=== PATIENT | female | born 1960 | race African-American/Black ===

== ENCOUNTER 2016-09-23 20:35 | Emergency (ER) | payer BC ==
[2016-09-23 20:40] VITALS: BP 160/69; BMI 39.0
[2016-09-23] MEDS ORDERED: NS 1000 ML 1,000 ML ONE (21:03)
--- NOTE | 2016-09-23 21:03 | DR.GENAD ---
HPI - PCP Primary Care Physician: Master - Complaint/Symptoms Chief Complaint Doctors Comments: Patient states that she has had three episodes of diarrhea and vomiting since 10AM. Chief Complaint:: "Ever since about 10am I have been vomiting and having loose stools. I can't keep anything down." - Source History Provided: Patient - Mode of Arrival Mode of Arrival: Ambulatory - Timing Onset of Chief Complaint: 09/23/16 PMH - PMH Past Medical History: Yes Past Medical History: Arthritis, Diabetes, GERD, Hypertension, PUD Past Surgical History: Yes Surgical History: , Cholecystectomy - Family History History of Family Medical Conditions: Yes Family Medical History: Diabetes Mellitus, [place], Coronary Artery Disease, Hypertension - Social History Does patient currently use any type of tobacco product: No Have you used tobacco products in the last 12 months: No Type of Tobacco Use: None Does any household member use tobacco: No Alcohol Use: None Do you use any recreational Drugs:: No Lives With: Family Lives Where: Home - infectious screening In the last 2 months have you had wt loss of >10#?: NO Have you had fever, night sweats or hemotysis?: No Have you traveled outside the country in the last 6 months?: No Isolation: Standard ROS - Review of Systems Eyes: No Symptoms Reported ENTM: No Symptoms Reported Respiratoy: No Symptoms Reported Cardiovascular: No Symptoms Reported Gastrointestinal/Abdominal: No Symptoms Reported Genitourinary: No Symptoms Reported Neurological: No Symptoms Reported Musculoskeletal: No Symptoms Reported Integumentary: No Symptoms Reported Hematologic/Lymphatic: No Symptoms Reported Endocrine: No Symptoms Reported Psychiatric: No Symptoms Reported All Other Systems: Reviewed and Negative PE - Vital Signs Vitals: Temperature 98.2 F Pulse Rate 82 Respiratory Rate 18 Blood Pressure [Right Arm] 127/52 Blood Pressure [Left Arm] 104/56 Blood Pressure 160/69 O2 Sat by Pulse Oximetry 98 - General General Appearance: Alert, In No Apparent Distress - Head Head Exam: Normal Inspection, Atraumatic - Eyes Eye exam: Normal Appearance, PERRL, EOMI - ENT ENT Exam: Normal Exam TM/Canal Exam: Bilateral Normal Nose Exam: Normal Nose Exam Mouth Exam: Normal Inspection Throat Exam: Normal Inspection - Neck Neck Exam: Normal Inspection - Chest Chest Inspection: Normal Inspection - Respiratory Respiratory Exam: Bilateral Clear to Auscultation - Cardiovascular Cardiovascular Exam: Regular Rate, Normal Rhythm - Abdominal Exam Abdominal Exam: Normal Inspection, Normal Bowel Sounds Abdominal Tenderness: negative: RUQ, RLQ, LUQ, LLQ, Epigastrium, Suprapubic, Diffuse, Mild, Moderate, Severe, Other - Extremities Extremities Exam: Normal Inspection, Full ROM - Back Back Exam: Normal Inspection - Neurologic Neurological Exam: Alert, Oriented X3, CN II-XII Intact - Psychiatric Psychiatric Exam: Normal Affect, Normal Mood - Skin Skin Exam: Warm, Dry, Intact Course - Reevaluation 1st: Improved ROR - Labs Reviewed Laboratory Results Reviewed?: Yes (H pylori gastritis) Result Diagrams: 09/23/16 21:12 09/23/16 21:12 Laboratory: WBC 4.7 X10^3/uL (3.6-10.0) 09/23/16 21:12 RBC 4.29 X10^6/uL (3.5-5.4) 09/23/16 21:12 Hgb 12.9 g/dL (12.0-16.0) 09/23/16 21:12 Hct 38.1 % (36.0-47.0) 09/23/16 21:12 MCV 88.8 fL (80.0-100.0) 09/23/16 21:12 MCH 29.9 pg (27.0-34.0) 09/23/16 21:12 MCHC 33.7 g/dL (33.0-35.0) 09/23/16 21:12 RDW 13.7 % (11.6-16.5) 09/23/16 21:12 Plt Count 234 X10^3/uL (150.0-450.0) 09/23/16 21:12 MPV 8.7 fL (7.4-11.0) 09/23/16 21:12 Neut % 72.8 % (42.0-75.0) 09/23/16 21:12 Lymph % 22.1 % (21.0-51.0) 09/23/16 21:12 [place] % 3.8 % (0.0-13.0) 09/23/16 21:12 Eos % 0.3 % (0.9-2.9) L 09/23/16 21:12 Baso % 1.0 % (0.2-1.0) 09/23/16 21:12 Neut # 3.4 x10^3/uL (2.2-4.8) 09/23/16 21:12 Lymph # 1.0 X10^3/uL (1.3-2.9) L 09/23/16 21:12 [place] # 0.2 x10^3/uL (0.3-0.8) L 09/23/16 21:12 Eos # 0.0 x10^3/uL (0.0-0.2) 09/23/16 21:12 Baso # 0.0 X10^3/uL (0.0-0.1) 09/23/16 21:12 Absolute Nucleated RBC 0.0 /100WBC 09/23/16 21:12 Sodium 144 mmol/L (136-145) 09/23/16 21:12 Corrected Sodium 147 mmol/L (136-145) H 09/23/16 21:12 Potassium 3.6 mmol/L (3.5-5.1) 09/23/16 21:12 Chloride 103 mmol/L (98-107) 09/23/16 21:12 Carbon Dioxide 31.3 mmol/L (21-32) 09/23/16 21:12 BUN 19 mg/dL (7-18) H 09/23/16 21:12 Creatinine 0.78 mg/dL (0.55-1.02) 09/23/16 21:12 Est GFR (MDRD) Af Amer > 60 (>60) 09/23/16 21:12 Est GFR (MDRD) Non-Af > 60 (>60) 09/23/16 21:12 Glucose 218 mg/dL (65-99) H 09/23/16 21:12 Calcium 8.8 mg/dL (8.5-10.1) 09/23/16 21:12 H. pylori IgG Antibody Positive (NEGATIVE) A 09/23/16 21:12 - Diagnosis Discharge Problem: Helicobacter pylori gastritis - Discharge Plan Condition: Stable - Follow ups/Referrals Follow ups/Referrals: BON GARCIA [Primary Care Provider] - 3 days - Instructions
[2016-09-23] MEDS: NS 1000 ML 1,000 ML IV ONE (21:18)
[2016-09-23] MEDS: ZOFRAN INJ 4 MG VIAL IVP ONE (21:29)
[2016-09-23 22:03] LABS: BILIRUBIN,URINE NEGATIVE (NEGATIVE); BLOOD/HEMOGLOBIN,URINE NEGATIVE (NEGATIVE); GLUCOSE, URINE 4+ (NEGATIVE); KETONES,URINE NEGATIVE (NEGATIVE); LEUKOCYTE ESTERASE ,URINE 2+ (NEGATIVE); NITRITES,URINE NEGATIVE (NEGATIVE); PROTEIN,URINE NEGATIVE (NEGATIVE); UROBILINOGEN,URINE NORMAL (NORMAL)
[2016-09-23 22:09] LABS: BLOOD UREA NITROGEN 19 mg/dL (7-18); CALCIUM 8.8 mg/dL (8.5-10.1); CARBON DIOXIDE 31.3 mmol/L (21-32); CHLORIDE 103 mmol/L (98-107); COR NA(FOR HYPERGLY) 147 mmol/L (136-145); CREATININE 0.78 mg/dL (0.55-1.02); GLUCOSE 218 mg/dL (65-99); SODIUM 144 mmol/L (136-145); eGFR BLACK RACES > 60 (>60); eGFR NON BLACK RACES > 60 (>60)
[2016-09-23 22:14] LABS: EOSINOPHILS % (AUTO) 0.3 % (0.9-2.9); HEMATOCRIT 38.1 % (36.0-47.0); HEMOGLOBIN 12.9 g/dL (12.0-16.0); LYMPHOCYTES % (AUTO) 22.1 % (21.0-51.0); MEAN CORPUSCULAR HEMOGLOBIN 29.9 pg (27.0-34.0); MEAN CORPUSCULAR HGB CONC 33.7 g/dL (33.0-35.0); MEAN CORPUSCULAR VOLUME 88.8 fL (80.0-100.0); MEAN PLATELET VOLUME 8.7 fL (7.4-11.0); MONOCYTES # (AUTO) 0.2 x10^3/uL (0.3-0.8); MONOCYTES % (AUTO) 3.8 % (0.0-13.0); NEUTROPHILS # (AUTO) 3.4 x10^3/uL (2.2-4.8); NEUTROPHILS % (AUTO) 72.8 % (42.0-75.0); PLATELET COUNT 234 X10^3/uL (150.0-450.0); RED BLOOD COUNT 4.29 X10^6/uL (3.5-5.4); RED CELL DISTRIBUTION WIDTH 13.7 % (11.6-16.5); WHITE BLOOD COUNT 4.7 X10^3/uL (3.6-10.0)
[2016-09-23 22:29] LABS: APPEARANCE,URINE SLIGHTLY HAZY (CLEAR); BACTERIA,URINE NEGATIVE /HPF (NEGATIVE); COLOR,URINE YELLOW (YELLOW); RBC,URINE 0-3 /HPF (NEGATIVE); SQUAMOUS EPITHELIAL CELL,UR MODERATE /HPF (NEGATIVE); YEAST,URINE FEW /HPF (NEGATIVE)
== END 2016-09-23 22:33 | disposition home or self-care (01) ==
LOC: ER 20:35
DX: R11.10 Vomiting, unspecified (principal); B96.81 Helicobacter pylori [H. pylori] as the cause of diseases classified elsewhere
CPT/HCPCS: 36415; 36591; 80048; 81001; 85025; 86677; 96367; 96374; 99282; 99283; A4222

== ENCOUNTER 2016-09-24 07:56 | Observation (INO) | payer BC ==
[2016-09-24] MEDS ORDERED: PEPCID 20 MG IV PREMIX* 20 MG/50 ML BAG IV ONE ×2 (09:03→09:09)
--- NOTE | 2016-09-24 09:03 | DR.NAUSEAF ---
HPI - Time Seen Time seen: 08:55 - Primary Care Physician Primary Care Physician: CARLOS ALBERTO SALMONP - HPI Comment HPI Comment: SEEN AT THIS FACILITY AND TREATED. CAME BACK BECAUSE HER SYMTOMS GOT WORSE. SHE IS NOT ABLE TO KEEP DOWN HER MEDICATIONS OR FLUID. HISTORY DIVERTICULOSIS. - Complaints Chief Complaint Doctors Comments: ABDOMINAL PAIN, N/V/D TIMES SEVERAL HOURS. Chief Complaint:: PT SEEN IN ER LAST NIGHT AND DX WITH H.PYLORI ,, PT STATES " I GOT NAUSEATED AND DIZZY I THOUGHT I WAS GONNA PASS OUT ". Self Treatment fo Chief Complaint: EMS ADMINISTERED ZOFRAN 4 MG IV,,, - Reviewed Nurses Notes Reviewed: Yes - Source History Provided: Patient, EMS - Mode of Arrival Mode of Arrival: EMS - Timing Onset of Chief Complaint: 09/24/16 - Context Onset: Spontaneous Recent: None : No History of: Abdominal Operation, Diabetes. negative: Contact Exposure - Quality Quality: Bilious - Associated Signs and Symptoms Abdominal Pain Quality: Cramping Symptoms: Abdominal Pain, Diarrhea, Anorexia. denies: Fever PMH - PMH Past Medical History: Yes Past Medical History: Arthritis, Diabetes, GERD, Hypertension, PUD Past Surgical History: Yes Surgical History: , Cholecystectomy - Family History History of Family Medical Conditions: No Family Medical History: Diabetes Mellitus, [place], Coronary Artery Disease, Hypertension - Social History Does patient currently use any type of tobacco product: No Have you used tobacco products in the last 12 months: No Type of Tobacco Use: None Does any household member use tobacco: No Alcohol Use: None Do you use any recreational Drugs:: No Lives With: Alone Lives Where: Home - infectious screening In the last 2 months have you had wt loss of >10#?: NO Have you had fever, night sweats or hemotysis?: No Have you traveled outside the country in the last 6 months?: No Isolation: Standard ROS - Review of Systems Constitutional: No Symptoms Reported Eyes: No Symptoms Reported ENTM: No Symptoms Reported Respiratoy: No Symptoms Reported Cardiovascular: No Symptoms Reported Gastrointestinal/Abdominal: Abdominal Pain, Diarrhea, Nausea, Vomiting Genitourinary: No Symptoms Reported. negative: Dysuria, Frequency, Hematuria Neurological: Dizziness Musculoskeletal: No Symptoms Reported, Muscle Pain Integumentary: Dryness Hematologic/Lymphatic: No Symptoms Reported Endocrine: No Symptoms Reported All Other Systems: Reviewed and Negative PE - Vital Signs Vitals: Temperature 98.0 F Pulse Rate [Left Brachial] 71 Pulse Rate 79 Respiratory Rate 20 Blood Pressure [Right Arm] 121/62 Blood Pressure [Left Arm] 104/56 Blood Pressure 122/60 O2 Sat by Pulse Oximetry 94 - General Limitations: No Limitations General Appearance: Alert - Head Head Exam: Normal Inspection - Eyes Eye exam: Normal Appearance - ENT ENT Exam: Normal External Ear Exam - Neck Neck Exam: Trachea Midline - Chest Chest Inspection: Symmetric Chest Wall Rise - Respiratory Respiratory Exam: Normal Lung Sounds Bilat Respiratory Exam: Bilateral Clear to Auscultation - Cardiovascular Cardiovascular Exam: Regular Rate, Normal Rhythm, Normal Heart Sounds - Abdominal Exam Abdominal Exam: Normal Bowel Sounds, Soft, Tenderness Abdominal Tenderness: Diffuse, Moderate - Rectal Rectal Exam: Deferred - External Exam: Female: Deferred : Speculum Exam (Female): Deferred : Bimanual Exam (female): Deferred - Extremities Extremities Exam: Normal Inspection - Back Back Exam: Normal Inspection - Neurologic Neurological Exam: Alert, Oriented X3 - Psychiatric Psychiatric Exam: Normal Affect, Normal Mood - Skin Skin Exam: Dry MDM - Additional Information Obtained Additional Information Obtained From: Family - Differential Diagnosis Differential Diagnosis: Considerations may Include:: Bowel Obstruction, Gastritis, Gastroenteritis, Inflammatory BD, Pancreatitis, PUD, Urinary Tract Infection, Urolithiasis Course - Treatment Treatment: SEE ORDERS. - Consultation Consultation Comments: DISCUSS PATIENT WITH DR. BONILLA. HE WILL ADMIT PATIENT. - Education/Counseling Education/Counseling: Patient, Education Educated On: Treatment, Diagnosis, Needs for Follow Up ROR - Labs Reviewed Laboratory Results Reviewed?: Yes Result Diagrams: 09/25/16 03:55 09/25/16 03:55 Laboratory: WBC 4.4 X10^3/uL (3.6-10.0) 09/25/16 03:55 RBC 4.15 X10^6/uL (3.5-5.4) 09/25/16 03:55 Hgb 12.4 g/dL (12.0-16.0) 09/25/16 03:55 Hct 36.4 % (36.0-47.0) 09/25/16 03:55 MCV 87.9 fL (80.0-100.0) 09/25/16 03:55 MCH 29.9 pg (27.0-34.0) 09/25/16 03:55 MCHC 34.0 g/dL (33.0-35.0) 09/25/16 03:55 RDW 14.0 % (11.6-16.5) 09/25/16 03:55 Plt Count 233 X10^3/uL (150.0-450.0) 09/25/16 03:55 MPV 8.9 fL (7.4-11.0) 09/25/16 03:55 Neut % 49.0 % (42.0-75.0) 09/25/16 03:55 Lymph % 43.7 % (21.0-51.0) 09/25/16 03:55 [place] % 4.6 % (0.0-13.0) 09/25/16 03:55 Eos % 1.6 % (0.9-2.9) 09/25/16 03:55 Baso % 1.1 % (0.2-1.0) H 09/25/16 03:55 Neut # 2.2 x10^3/uL (2.2-4.8) 09/25/16 03:55 Lymph # 1.9 X10^3/uL (1.3-2.9) 09/25/16 03:55 [place] # 0.2 x10^3/uL (0.3-0.8) L 09/25/16 03:55 Eos # 0.1 x10^3/uL (0.0-0.2) 09/25/16 03:55 Baso # 0.1 X10^3/uL (0.0-0.1) 09/25/16 03:55 Absolute Nucleated RBC 0.0 /100WBC 09/25/16 03:55 Sodium 143 mmol/L (136-145) 09/25/16 03:55 Corrected Sodium 144 mmol/L (136-145) 09/25/16 03:55 Potassium 3.5 mmol/L (3.5-5.1) 09/25/16 03:55 Chloride 106 mmol/L (98-107) 09/25/16 03:55 Carbon Dioxide 29.8 mmol/L (21-32) 09/25/16 03:55 BUN 9 mg/dL (7-18) 09/25/16 03:55 Creatinine 0.53 mg/dL (0.55-1.02) L 09/25/16 03:55 Est GFR (MDRD) Af Amer > 60 (>60) 09/25/16 03:55 Est GFR (MDRD) Non-Af > 60 (>60) 09/25/16 03:55 Glucose 155 mg/dL (65-99) H 09/25/16 03:55 Calcium 8.4 mg/dL (8.5-10.1) L 09/25/16 03:55 Corrected Calcium TNP 09/25/16 03:55 Total Bilirubin 0.30 mg/dL (0.2-1.0) 09/25/16 03:55 AST 13 Units/L (15-37) L 09/25/16 03:55 ALT 22 Units/L (12-78) 09/25/16 03:55 Alkaline Phosphatase 44 Units/L (46-116) L 09/25/16 03:55 Total Protein 6.9 g/dL (6.4-8.2) 09/25/16 03:55 Albumin 3.6 g/dL (3.4-5.0) 09/25/16 03:55 Globulin 3.3 g/dL (2.5-4.5) 09/25/16 03:55 Albumin/Globulin Ratio 1.1 Ratio (1.1-2.1) 09/25/16 03:55 Amylase 23 Units/L (25-115) L 09/24/16 09:32 Lipase 75 Units/L (73-393) 09/24/16 09:32 - XRAY XRAY Interpreted by: Radiologist XRAY Findings: REPORT DISCUSS WITH PATIENT. - Diagnosis Discharge Problem: Abdominal pain, Gastroenteritis, Dehydration - Discharge Plan Disposition: ADMITTED INPATIENT Condition: Stable - Follow ups/Referrals - Instructions
[2016-09-24] MEDS ORDERED: DEMEROL INJ IVP ONE (09:04)
[2016-09-24] MEDS ORDERED: DEMEROL INJ ONE (09:09)
[2016-09-24 09:31] LABS: BASOPHILS # (AUTO) 0.1 X10^3/uL (0.0-0.1); EOSINOPHILS % (AUTO) 0.8 % (0.9-2.9); HEMATOCRIT 36.1 % (36.0-47.0); HEMOGLOBIN 12.3 g/dL (12.0-16.0); LYMPHOCYTES # (AUTO) 1.3 X10^3/uL (1.3-2.9); MEAN CORPUSCULAR HEMOGLOBIN 29.9 pg (27.0-34.0); MEAN CORPUSCULAR VOLUME 87.9 fL (80.0-100.0); MEAN PLATELET VOLUME 8.4 fL (7.4-11.0); MONOCYTES # (AUTO) 0.2 x10^3/uL (0.3-0.8); NEUTROPHILS # (AUTO) 3.9 x10^3/uL (2.2-4.8); NEUTROPHILS % (AUTO) 70.2 % (42.0-75.0); PLATELET COUNT 229 X10^3/uL (150.0-450.0); WHITE BLOOD COUNT 5.5 X10^3/uL (3.6-10.0)
[2016-09-24 09:43] LABS: ALANINE AMINOTRANSFERASE 22 Units/L (12-78); ALBUMIN 3.7 g/dL (3.4-5.0); ALKALINE PHOSPHATASE 44 Units/L (46-116); AMYLASE 23 Units/L (25-115); ASPARTATE AMINO TRANSFERASE 13 Units/L (15-37); BLOOD UREA NITROGEN 14 mg/dL (7-18); CALCIUM 8.2 mg/dL (8.5-10.1); CARBON DIOXIDE 29.2 mmol/L (21-32); CHLORIDE 107 mmol/L (98-107); COR NA(FOR HYPERGLY) 145 mmol/L (136-145); CREATININE 0.61 mg/dL (0.55-1.02); GLUCOSE 160 mg/dL (65-99); LIPASE 75 Units/L (73-393); SODIUM 144 mmol/L (136-145); eGFR BLACK RACES > 60 (>60); eGFR NON BLACK RACES > 60 (>60)
--- NOTE | 2016-09-24 10:39 | CT ---
CT ABDOMEN AND PELVIS WITHOUT CONTRAST CLINICAL HISTORY: 56-year-old female with abdominal pain. COMPARISON: None. TECHNIQUE: Multiple contiguous computed tomographic axial images of the abdomen and pelvis were obta ined without the use of oral or intravenous contrast. Images were reformatted in the coronal and sag ittal planes. FINDINGS: The lung bases demonstrate no evidence of focal air-space opacification, pleural effusion, pneumotho rax, or suspicious pulmonary nodules. Heart is not enlarged. No pericardial effusion. Significant c alcifications of the aortic annulus. Borderline hepatomegaly which is stable with hepatic steatosis. Status post cholecystectomy. Spleen and pancreas are unremarkable for study without contrast. The adrenal glands and kidneys are normal bilaterally for study without contrast. Unchanged right re nal cyst. There are no nephroureteral stones or perinephric fluid collections. There is no evidence of hydroureteronephrosis and the ureters run in an unobstructed course to a well distended urinary b ladder. Uterus is anteverted and anteflexed with unchanged calcified uterine fibroid. The ovaries, vagina a nd perineum are within normal limits. Multiple pelvic phleboliths. The appendix is normal in appearance. The bowel is without obstruction or inflammation and there is no free fluid or free air within the peritoneal cavity. There are no pathologically enlarged lymph nodes in the abdomen or pelvis. Moderate to severe atherosclerotic disease of the aorta and its branches. Spiculated 1.6 x 1.6 cm lesion within the right breast with associated calcification, which may be a biopsy marker, with questionable scarring of the overlying skin. The osseous structures are intact without fracture or malalignment. IMPRESSION: 1. No acute intra-abdominal or intrapelvic process to account for patient's symptoms. 2. Stable calcified uterine fibroid. 3. Normal appendix. 4. Status post cholecystectomy. 5. Spiculated soft tissue density lesion within the right breast as described above, correlate with surgical history and mammogram. Reported By:
[2016-09-24] MEDS ORDERED: PHENERGAN INJ 25 MG IVP PRN (11:52)
[2016-09-24] MEDS ORDERED: ZOFRAN INJ 4 MG VIAL IVP PRN (11:52)
[2016-09-24] MEDS: DEMEROL INJ IVP PRN ×2 (15:20→21:15)
[2016-09-24] MEDS ORDERED: FLEXERIL TAB 10 MG PO PRN (16:49)
[2016-09-24] MEDS ORDERED: ULTRAM PO PRN (16:49)
[2016-09-24] MEDS ORDERED: HumuLIN R SUBCUT PRN (17:07)
[2016-09-24 17:22] VITALS: BMI 39.9
[2016-09-24] MEDS: SNACK - Diabetic Appropriate PO SCH (20:05)
[2016-09-24] MEDS ORDERED: NS 250 ML IV 250 ML IV ONE (20:54)
[2016-09-24] MEDS ORDERED: PATIENT'S HOME MEDICATION (Metformin Hcl [Metformin Hcl] 1,000 MG) PO SCH (21:00)
[2016-09-24] MEDS: NEURONTIN CAP 100 MG PO SCH (21:15)
[2016-09-24] MEDS: PEPCID 20 MG IV PREMIX* 20 MG/50 ML BAG IV PRN (21:15)
[2016-09-25 04:57] LABS: BASOPHILS # (AUTO) 0.1 X10^3/uL (0.0-0.1); BASOPHILS % (AUTO) 1.1 % (0.2-1.0); EOSINOPHILS # (AUTO) 0.1 x10^3/uL (0.0-0.2); EOSINOPHILS % (AUTO) 1.6 % (0.9-2.9); HEMATOCRIT 36.4 % (36.0-47.0); HEMOGLOBIN 12.4 g/dL (12.0-16.0); LYMPHOCYTES # (AUTO) 1.9 X10^3/uL (1.3-2.9); LYMPHOCYTES % (AUTO) 43.7 % (21.0-51.0); MEAN CORPUSCULAR HEMOGLOBIN 29.9 pg (27.0-34.0); MEAN CORPUSCULAR VOLUME 87.9 fL (80.0-100.0); MEAN PLATELET VOLUME 8.9 fL (7.4-11.0); MONOCYTES # (AUTO) 0.2 x10^3/uL (0.3-0.8); MONOCYTES % (AUTO) 4.6 % (0.0-13.0); NEUTROPHILS # (AUTO) 2.2 x10^3/uL (2.2-4.8); PLATELET COUNT 233 X10^3/uL (150.0-450.0); RED BLOOD COUNT 4.15 X10^6/uL (3.5-5.4); WHITE BLOOD COUNT 4.4 X10^3/uL (3.6-10.0)
[2016-09-25 05:10] LABS: ALANINE AMINOTRANSFERASE 22 Units/L (12-78); ALBUMIN 3.6 g/dL (3.4-5.0); ALKALINE PHOSPHATASE 44 Units/L (46-116); ASPARTATE AMINO TRANSFERASE 13 Units/L (15-37); BLOOD UREA NITROGEN 9 mg/dL (7-18); CALCIUM 8.4 mg/dL (8.5-10.1); CARBON DIOXIDE 29.8 mmol/L (21-32); CHLORIDE 106 mmol/L (98-107); COR NA(FOR HYPERGLY) 144 mmol/L (136-145); CREATININE 0.53 mg/dL (0.55-1.02); GLUCOSE 155 mg/dL (65-99); SODIUM 143 mmol/L (136-145); TOTAL PROTEIN 6.9 g/dL (6.4-8.2); eGFR BLACK RACES > 60 (>60); eGFR NON BLACK RACES > 60 (>60)
[2016-09-25] MEDS ORDERED: GLUCOPHAGE ONE ×2 (06:07→16:54)
[2016-09-25] MEDS: GLUCOPHAGE PO SCH ×2 (06:11→16:57)
[2016-09-25] MEDS ORDERED: ZESTRIL TAB 20 MG ONE (08:05)
[2016-09-25] MEDS: DEMEROL INJ IVP PRN ×2 (08:15→16:58)
[2016-09-25] MEDS: ZESTRIL TAB 20 MG PO SCH (08:15)
[2016-09-25] MEDS: HYDROCHLOROTHIAZIDE 12.5 MG CAP PO SCH (08:16)
[2016-09-25] MEDS: DAPAGLIFLOZIN PROPANEDIOL PO SCH (08:17)
[2016-09-25] MEDS ORDERED: PATIENT'S HOME MEDICATION (Rivaroxaban [Xarelto] 1 TAB) PO SCH (09:00)
[2016-09-25] MEDS ORDERED: PATIENT'S HOME MEDICATION (Lisinopril/Hydrochlorothiazide [Lisinopril-Hctz 20-12.5 Mg Tab] PO SCH (09:00)
[2016-09-25] MEDS: PEPCID 20 MG IV PREMIX* 20 MG/50 ML BAG IV PRN (09:13)
[2016-09-25] MEDS ORDERED: XARELTO PO SCH (17:00)
--- NOTE | 2016-09-25 18:40 | DR.H&P ---
H&P - History & Physical for Day of: H&P Date: 09/24/16 - Chief Complaint Chief Complaint: EPIGASTRIC PAIN, N/V/D, DEHYRATION, LOWER BACK PAIN - Allergies Allergies/Adverse Reactions: Allergies Allergy/AdvReac Type Severity Reaction Status Date / Time No Known Drug Allergies Allergy Verified 09/24/16 12:57 - History of Present Illness History of Present Illness: 56 BF ADMITTED FROM THE ER AFTER FIRST PRESENTING TO DR BONILLA OFFICE ON SUNDAY WITH CO ELEVATED BLOOD SUGAR AND LOWER BACK PAIN. PTS DIABETIC MEDICATION WAS INCREASED, LANTUS. PT STATES SHE HAD ONSET OF N/V/D SUNDAY NIGHT, THOUGHT IT WAS VIRUS, WENT TO ER FOR EVALUATION. PT THEN RETURNED TO ER ON SUNDAY WITH CONTINUED ABD PAIN N/V/D. PT ADMITTED FOR EVALUATION OF ABDOMINAL PAIN, DEHYDRATION. PLAN TO CONTINUE IV PAIN AND NAUSE MEDS, REPEAT AM LABS, BLOOD SUGAR CONTROL - Past Medical History Past Medical History: Arthritis, Diabetes, GERD, Hypertension, PUD - Past Surgical History Surgical History: , Cholecystectomy - Family History Family Medical History: Diabetes Mellitus, [place], Coronary Artery Disease, Hypertension - Social History Does patient currently use any type of tobacco product: No Have you used tobacco products in the last 12 months: No Type of Tobacco Use: None How many years tobacco product used: 18 Does any household member use tobacco: No Alcohol Use: None Drug Use: Prescription Drugs - Medications Home Medications: Cyclobenzaprine HCl 1 tab PO TID PRN 09/24/16 [History Confirmed 09/24/16] Dapagliflozin Propanediol [Farxiga] 1 tab PO DAILY 09/24/16 [History Confirmed 09/24/16] Gabapentin 2 tab PO HS 09/24/16 [History Confirmed 09/24/16] Lisinopril/Hydrochlorothiazide [Lisinopril-Hctz 20-12.5 mg Tab] 12.5 mg PO DAILY 09/24/16 [History Confirmed 09/24/16] Rivaroxaban [Xarelto] 1 tab PO DAILY 09/24/16 [History Confirmed 09/24/16] Tramadol HCl [Tramadol HCl] 1 tab PO Q8H PRN 09/24/16 [History Confirmed ] - Review of Systems Constitutional: Weakness Eyes: No Symptoms Reported ENT: No Symptoms Reported Respiratory: No Symptoms Reported Cardiovascular: No Symptoms Reported Gastrointestinal: Nausea, Vomiting, Abdominal Pain, Diarrhea Musculoskeletal: Back Pain, Leg Pain Skin: No Symptoms Reported Neurological: Weakness - Physical Exam Vital Signs: Temperature 98.2 F Pulse Rate [Right Brachial] 71 Pulse Rate [Left Brachial] 74 Respiratory Rate 20 Blood Pressure [Right Arm] 134/74 Blood Pressure [Left Arm] 124/67 O2 Sat by Pulse Oximetry 98 Oriented: Normal Eyes: Normal Ear: Normal Nose: Normal Throat: Dry Respiratory: Diminished Throughout Cardiovascular: Normal : Normal Auscultation: Bowel Sounds: Increased Tenderness: Diffuse Skin: Decreased Turgur Musculoskeletal: Right, Left, Leg, Back:Thoracic, Back:Lumbar, Sensory Deficit ( DECREASE SENSATION BILATERAL LOWER EXTREMITIES) Mood Description: Calm Speech Pattern: Clear, Appropriate - Assessment/Plan (1) Gastroenteritis Status: Acute Plan: ADMIT, IV HYDRATION. PAIN AND NAUSEA CONTROL, BLOOD SUGAR MANAGEMENT. REPEAT AM LABS, STOOL STUDIES. RESUME HOME MEDS (2) Abdominal pain Qualifiers: Abdominal location: A Status: Acute (3) Degenerative lumbar spinal stenosis Status: Acute (4) Facet arthritis, degenerative, lumbar spine Status: Acute (5) Dehydration Status: Acute (6) Diabetes mellitus type 2 Status: Active (7) Essential hypertension Status: Active (8) Gastroesophageal reflux disease Status: Active
[2016-09-25] MEDS: SNACK - Diabetic Appropriate PO SCH (21:08)
[2016-09-25] MEDS: NEURONTIN CAP 100 MG PO SCH (21:09)
[2016-09-25] MEDS: NORCO 7.5/325 MG TAB PO PRN (21:17)
[2016-09-26] MEDS: DEMEROL INJ IVP PRN (04:31)
[2016-09-26] MEDS ORDERED: GLUCOPHAGE ONE (05:33)
[2016-09-26 05:45] LABS: ALANINE AMINOTRANSFERASE 23 Units/L (12-78); ALBUMIN 3.8 g/dL (3.4-5.0); ALKALINE PHOSPHATASE 51 Units/L (46-116); ASPARTATE AMINO TRANSFERASE 14 Units/L (15-37); BLOOD UREA NITROGEN 8 mg/dL (7-18); CALCIUM 9.1 mg/dL (8.5-10.1); CHLORIDE 103 mmol/L (98-107); COR NA(FOR HYPERGLY) 142 mmol/L (136-145); CREATININE 0.57 mg/dL (0.55-1.02); GLUCOSE 170 mg/dL (65-99); SODIUM 140 mmol/L (136-145); TOTAL PROTEIN 7.4 g/dL (6.4-8.2); eGFR BLACK RACES > 60 (>60); eGFR NON BLACK RACES > 60 (>60)
[2016-09-26 05:54] LABS: BASOPHILS % (AUTO) 0.6 % (0.2-1.0); EOSINOPHILS # (AUTO) 0.1 x10^3/uL (0.0-0.2); EOSINOPHILS % (AUTO) 1.6 % (0.9-2.9); HEMATOCRIT 39.6 % (36.0-47.0); HEMOGLOBIN 13.6 g/dL (12.0-16.0); LYMPHOCYTES # (AUTO) 2.1 X10^3/uL (1.3-2.9); LYMPHOCYTES % (AUTO) 45.4 % (21.0-51.0); MEAN CORPUSCULAR HEMOGLOBIN 30.4 pg (27.0-34.0); MEAN CORPUSCULAR HGB CONC 34.3 g/dL (33.0-35.0); MEAN CORPUSCULAR VOLUME 88.8 fL (80.0-100.0); MEAN PLATELET VOLUME 8.7 fL (7.4-11.0); MONOCYTES # (AUTO) 0.2 x10^3/uL (0.3-0.8); MONOCYTES % (AUTO) 5.1 % (0.0-13.0); NEUTROPHILS # (AUTO) 2.1 x10^3/uL (2.2-4.8); NEUTROPHILS % (AUTO) 47.3 % (42.0-75.0); PLATELET COUNT 250 X10^3/uL (150.0-450.0); RED BLOOD COUNT 4.46 X10^6/uL (3.5-5.4); RED CELL DISTRIBUTION WIDTH 13.8 % (11.6-16.5); WHITE BLOOD COUNT 4.5 X10^3/uL (3.6-10.0)
[2016-09-26] MEDS: GLUCOPHAGE PO SCH (05:59)
[2016-09-26] MEDS: NORCO 7.5/325 MG TAB PO PRN ×2 (06:00→13:17)
[2016-09-26] MEDS ORDERED: ZESTRIL TAB 20 MG ONE (08:41)
[2016-09-26] MEDS: HYDROCHLOROTHIAZIDE 12.5 MG CAP PO SCH (09:21)
[2016-09-26] MEDS: ZESTRIL TAB 20 MG PO SCH (09:21)
[2016-09-26] MEDS: DAPAGLIFLOZIN PROPANEDIOL PO SCH (09:22)
--- NOTE | 2016-09-26 15:48 | MRI ---
HISTORY: Low back pain Study: MRI lumbar spine Comparison: None Technique: Multiplanar multi-sequence MRI of the lumbar spine was obtained. Sagittal T1, sagittal T 2, and stir weighted images, axial T1, and axial T2 images were obtained. Findings: The lumbar vertebra are well aligned. No fracture or subluxation is seen. There is mild disc space n arrowing throughout with diffuse mild disc desiccation. The vertebral body height is well maintained throughout. The conus is normal. There is a small disc bulge at L5-S1 lateralizing to to the right which does not cause any dural sac effacement . There is a tiny disc bulge centrally at L4-5 . There are moderate hypertrophic changes of the facets throughout with ligament flavum hypertrophy causing minimal spinal stenosis inferiorly. There are no pars defects seen. There is mild fluid in the face ts at both L4-5 and L5-S1 bilaterally with no pars defects. The paravertebral soft tissues are erich l. The bone marrow signal is otherwise unremarkable. There is a 2.7 cm cyst along the mid polar terrance on on the right. IMPRESSION: Mild to moderate multilevel degenerative disc disease with no acute abnormality seen. Small central disc bulge at L4-5 and a tiny disc bulge at L4-5. Moderate osteoarthritic changes of the facets throughout the lower lumbar spine with minimal spinal stenosis inferiorly. Probable synovitis in the facets at L4-5 and L5-S1 bilaterally with no pars defects. Reported By:
[2016-09-26 16:07] VITALS: BP 124/64
[2016-09-26] MEDS ORDERED: TORADOL 30 MG VIAL IVP ONE (16:12)
[2016-09-26] MEDS ORDERED: PERCOCET TAB 5/325 MG PO ONE (16:12)
[2016-09-26] MEDS ORDERED: LANTUS SC SCH (21:00)
== END 2016-09-26 16:30 | disposition home or self-care (01) | DRG 392 ==
LOC: ER 07:56 → MED/SURG 11:50
PROVIDERS: ADMIT Internal Medicine; ATTEND Internal Medicine
DX: K52.89 Other specified noninfective gastroenteritis and colitis (principal); E86.0 Dehydration; R10.84 Generalized abdominal pain; R10.13 Epigastric pain; R11.2 Nausea with vomiting, unspecified; B96.81 Helicobacter pylori [H. pylori] as the cause of diseases classified elsewhere; E11.65 Type 2 diabetes mellitus with hyperglycemia; K21.9 Gastro-esophageal reflux disease without esophagitis; I10 Essential (primary) hypertension; M54.5 Low back pain; M47.896 Other spondylosis, lumbar region; M48.06 Spinal stenosis, lumbar region; Z79.899 Other long term (current) drug therapy
CPT/HCPCS: 36415; 72148; 74176; 80053; 82150; 83690; 85025; 86677; 96365; 96374; 96375; 99284; A4222; S0028; G0378; J1815; J2175

== ENCOUNTER → 2016-10-05 | Outpatient (CLI) | payer BC ==
[2016-09-26 16:07] VITALS: BP 124/64
--- NOTE | 2016-10-05 14:36 | MG ---
HISTORY: Abnormality seen on recent CT 09/24/2016, history of right breast cancer post lumpectomy a nd radiation. Comparison: Prior mammogram 06/30/2014, 07/05/2015, CT abdomen and pelvis 09/24/2016 FINDINGS: CC and MLO projections of the right and left breast were obtained. Scattered fibroglandular tissue is seen to be present. Lumpectomy scar is seen in the inferior medial right breast with chronic arc hitectural distortion. No new mass, or suspicious calcifications identified. No skin thickening or nipple retraction is appreciated. No pathological lymphadenopathy can be identified. Benign calcif ications are present in both breasts. IMPRESSION: Stable exam. No radiographic evidence of malignancy. ACR CATEGORY 2: Benign findings. Return to routine yearly screening. Diagnostic CAD was utilized and reviewed. * 0 (ZERO) - ASSESSMENT INCOMPLETE; ADDITIONAL IMAGING IS NEEDED. * 1/ (ONE) - NEGATIVE. * 2/II (TWO) - BENIGN FINDINGS. * 3/III (THREE) - PROBABLY BENIGN FINDING; SHORT INTERVAL FOLLOW-UP SUGGESTED. * 4/IV (FOUR) - SUSPICIOUS ABNORMALITY; BIOPSY SHOULD BE CONSIDERED. * 5/V - HIGHLY SUSPICIOUS OF MALIGNANCY; BIOPSY SHOULD BE PERFORMED. A NEGATIVE X-RAY REPORT SHOULD NOT DELAY BIOPSY IF A DOMINANT OR CLINICALLY SUSPICIOUS MASS IS PRESENT; 4 TO 8 PERCENT OF CANCERS ARE NOT IDENTIFIED BY X-RAY. A NEG ATIVE REPORT MAY REINFORCE THE CLINICAL IMPRESSION. ADENOSIS AND DENSE BREASTS MAY OBSCURE AN UNDER LYING NEOPLASM. Reported By:
== END | disposition home or self-care (01) ==
LOC: RAD 13:22
PROVIDERS: ATTEND Nurse Practitioner Family
DX: N64.89 Other specified disorders of breast (principal)
CPT/HCPCS: 77066

== ENCOUNTER 2017-06-16 15:18 | Emergency (ER) | payer BC ==
[2017-06-16 15:29] VITALS: BP 129/63; BMI 34.4
[2017-06-16] MEDS ORDERED: ADACEL TDaP IM ONE ×2 (16:05→16:07)
[2017-06-16] MEDS ORDERED: AUGMENTIN 500 MG/125 MG TAB PO ONE ×2 (16:05→16:19)
[2017-06-16] MEDS ORDERED: TORADOL TAB PO ONE ×2 (16:06→16:19)
[2017-06-16] MEDS ORDERED: BACITRACIN ZINC ONE (16:07)
--- NOTE | 2017-06-16 16:09 | DR.BITE ---
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 States she is unsure of her last tetanus. States she called the police and they made a report. States the man said the dog shots were up to date. States she is a patient of Erna Garcia. She denies fever, chills, chest pain or SOB. States the pain is 7 of 10. States she is here for a tetanus shot. Chief Complaint:: PT C/O BEING BIT BY AT DOG WHILE SHE WAS WALKING UP THE STEPS, , IT WAS A SMALL BLACK DOG AND SHE DOES NOT KNOW WHO IT BELONGS TO,, BR Self Treatment fo Chief Complaint: PT HAS PUNCTURES TO HER LEFT LATERAL UPPER CALF, AND RIGHT MEDIAL CALF.. BR - Nurses notes reviewed Nurses Notes Review: Yes - Source History Provided: Patient - Mode of Arrival Mode of Arrival: Ambulatory - Duration Duration: Constant How lon Duration: Hours - Location Location: Left (both lower legs calf area with abrasions and left with puncture wound), Right, Leg - Timing Onset of Chief Complaint: 06/16/17 Symptoms Occurred: 1 ago: Hours - Context Caused by: Dog Symptoms: Abrasion, Pain, Puncture wound. denies: Altered mental status, Nausea /Vomiting, Paresthesia, Redness, Salivation, Seizures, Swelling, Tremors, Weakness, Laceration, Papule wound, Pustule wound, Pruritis, Rash, Shortness of breath, Facial swelling, Bruising, Diplopia, Dysphasia Immunization Status of Animal: Current Tetanus Immunization Current: Unknown - Severity Pain: Mild Puritis Severity: None SOB Severity: None - Associated signs and symptoms Associated signs and symptoms: None PMH - PMH Past Medical History: Yes Past Medical History: Arthritis, Diabetes, GERD, Hypertension, PUD Past Surgical History: Yes Surgical History: , Cholecystectomy - Family History History of Family Medical Conditions: Yes Family Medical History: Diabetes Mellitus, [place], Coronary Artery Disease, Hypertension - Social History Does patient currently use any type of tobacco product: No Have you used tobacco products in the last 12 months: No Type of Tobacco Use: None Does any household member use tobacco: No Alcohol Use: None Do you use any recreational Drugs:: No Lives With: Family Lives Where: Home - infectious screening In the last 2 months have you had wt loss of >10#?: NO Have you had fever, night sweats or hemotysis?: No Have you traveled outside the country in the last 6 months?: No Isolation: Standard ROS - Review of Systems Constitutional: No Symptoms Reported. negative: See HPI, Chills, Diaphoresis, Fever, Malaise, Weakness, Irritable, Fatigue, Loss of Appetite, Other Eyes: No Symptoms Reported ENTM: No Symptoms Reported. negative: See HPI, Ear Pain, Ear Discharge, Pulling on Ears, Hearing Loss, Nose Pain, Nose Discharge, Epistaxis, Nose Congestion, Mouth Pain, Mouth Swelling, Loose Teeth, Drooling, Throat Pain, Throat Swelling, Ear Foreign Body Respiratoy: No Symptoms Reported. negative: See HPI, Productive Cough, Non- Productive Cough, Moist Cough, Dry Cough, Hacking Cough, Barking Cough, Brassy Cough, Orthopnea, Short of Breath, Stridor, Wheezing, Hemoptysis, Other Cardiovascular: No Symptoms Reported Gastrointestinal/Abdominal: No Symptoms Reported. negative: See HPI, Abdominal Pain, Constipation, Diarrhea, Nausea, Vomiting, Food Intolerance, Other Genitourinary: No Symptoms Reported. negative: See HPI, Discharge, Dysuria, Frequency, Hematuria, Pain, Bleeding, Other Neurological: No Symptoms Reported. negative: See HPI, Anxiety, Depressed, Emotional Problems, Headache, Numbness, Paresthesia, Pre-existing Deficit, Seizure, Tingling, Tremors, Weakness, Dizziness, Problems Walking, Speech Problem, Other Musculoskeletal: No Symptoms Reported, Right, Left, Leg (abrasion lower legs) Integumentary: Wound Hematologic/Lymphatic: No Symptoms Reported. negative: See HPI, Anemia, Blood Clots, Easy Bleeding, Easy Bruising, Swollen Glands, Lymphadenopathy, Other Endocrine: No Symptoms Reported. negative: See HPI, Excessive Sweating, Flushing, Intolerance to Cold, Intolerance to Heat, Increased Hunger, Increased Thirst, Increased Urine, Unexplained Weight Gain, Unexplained Weight Loss, Failure to Thrive, Decreased Appetite, Other Psychiatric: No Symptoms Reported. negative: See HPI, Anxiety, Depression, Hallucinations, Excessive crying, Suicidal, Other PE - Vital Signs Vital Signs: Temp Pulse Resp BP BP BP Pulse Ox 06/16/17 15:25 98.0 F 110 H 18 129/63 98 09/26/16 16:00 124/64 124/64 09/24/16 12:45 124/67 - Constitutional Limitations: No Limitations General Appearance: Alert, In Distress (mild) - Head Head Exam: Normal Inspection, Atraumatic, Normocephalic - Eyes Eye exam: Normal Appearance, PERRL, EOMI. negative: Scleral Icterus, Conjunctival Injection, Nystagmus, Miosis, Mydrasis, Periorbital Swelling, Periorbital Tenderness, Other - ENT ENT Exam: Normal Exam, Normal Oropharynx, Normal External Ear Exam, Mucous Membranes Moist, TM's Normal Bilaterally - Neck Neck Exam: Normal Inspection, Full ROM, Trachea Midline - Chest Chest Inspection: Normal Inspection, Symmetric Chest Wall Rise. negative: Tenderness, Rash, Abscess, Other - Respiratory Respiratory Exam: Normal Lung Sounds Bilat Respiratory Exam: Bilateral Clear to Auscultation - Cardiovascular Cardiovascular Exam: Regular Rate, Normal Rhythm, Normal Heart Sounds. negative : Bradycardia, Tachycardia, Irregular Rhythm, Systolic Murmur, Diastolic Murmur , Rubs, Gallop, Clicks, JVD, +S1, +S2, +S3, +S4, Other - Abdominal Exam Abdominal Exam: Normal Inspection, Normal Bowel Sounds. negative: Soft, Distention, Tenderness, Guarding, Rebound, Rigidity, Dimnished Bowel Sounds, Hyperactive Bowel Sounds, Hypoactive Bowel Sounds, Organomegaly, Trauma, Incision, Ascites, Mass, Bruit, Pulsatile Mass, Hernia, Other Abdominal Tenderness: negative: RUQ, RLQ, LUQ, LLQ, Epigastrium, Suprapubic, Diffuse, Mild, Moderate, Severe, Other - Extremities Extremities Exam: Normal Inspection, Full ROM, Tenderness (right lower let with puncture and small abrasion; left lower leg with 2 cm abrasion; no active bleeding; no foreign body identified), Normal Capillary Refill - Back Back Exam: Normal Inspection, Full ROM. negative: Tenderness, (R) CVA Tenderness, (L) CVA Tenderness, Muscle Spasm, Paraspinal Tenderness, Vertebral Tenderness, Rashes, (R) Sciatic Notch Tenderness, (L) Sciatic Notch Tendern, (R ) Straight Leg Raise, (L) Straight Leg Raise, Other - Neurologic Neurological Exam: Alert, Oriented X3, CN II-XII Intact, Normal Gait, Reflexes Normal Patient Oriented To: Person, Place, Time Cranial Nerve Exam: EOM Function (II, III, IV, ): Normal, Facial Sensation (V) : Normal, Facial Palsy (VII): Normal, Gag reflex (XI): Normal, Spinal Accessory Function (XI): Normal, Tongue Deviation: Normal Cerebellar Function: Finger to Nose: Normal, Heel to [place]: Normal Cerebellar Function: Normal Gait Upper Motor Neuron Exam: Babinski Sign: Normal - Psychiatric Psychiatric Exam: Normal Affect, Normal Mood - Skin Skin Exam: Warm, Dry, Intact, Normal Color Type of Lesion: Abrasion (lower leg) Distribution: LLE, RLE (superficial abrasion) Description: negative: Size, Tenderness, Erythematous, Swelling, Macular, Papular, Vesicular, Blisters, Cofluent, Bullous, Petechial, Purpuric, Urticarial , Crusting, Discharge, Fluctuant, Indurated, Other Involving: Immediate area of bite (no erythema or swelling) Through to: Skin, Bite Distal Function: Normal, Motor deficit - Diagnosis Discharge Problem: dog bite lower leg bilaterally, abrasion of leg, bilateral Puncture wound of left lower leg Qualifiers: Encounter type: initial encounter Qualified Code(s): S81.832A - Puncture wound without foreign body, left lower leg, initial encounter - Discharge Plan Disposition: 01 HOME, SELF-CARE Condition: Stable Prescriptions: Amoxicillin/Potassium Clav [Augmentin 875-125 Tablet] 1 tab PO Q12H #20 tab Ibuprofen [MOTRIN TAB 800 MG *] 800 mg PO BID PRN #40 tab PRN Reason: Pain/Inflammation Mupirocin Oint [BACTROBAN OINT 2%] 1 applic EXT BID #22 gm - Follow ups/Referrals Follow ups/Referrals: BON GARCIA [Primary Care Provider] - 3 days - Instructions Instructions: Puncture Wound, Animal Bite
== END 2017-06-16 16:30 | disposition home or self-care (01) ==
LOC: ER 15:31
DX: S81.832A Puncture wound without foreign body, left lower leg, initial encounter (principal); S80.811A Abrasion, right lower leg, initial encounter; S80.812A Abrasion, left lower leg, initial encounter; W54.0XXA Bitten by dog, initial encounter; Y92.9 Unspecified place or not applicable
CPT/HCPCS: 90471; 99281; 99282

== ENCOUNTER 2019-11-24 18:45 | Inpatient (IN) ==
--- NOTE | 2019-11-24 19:58 | DR.URIAD ---
HPI <Noe Carlton Filed: 12/22/19 09:34> Time Seen Time Seen by Provider: 11/24/19 19:50 PCP Primary Care Physician: CHAD Complaint Chief Complaint:: PT AMBULATORY IN ED WITH C/O ULCER, THROWING UP, SOB, TEMP AND BODY HURTING SINCE SUNDAY. COVID-19 Coronavirus risk:travel/contact w/high risk person: No Has patient experienced Coronavirus symptoms: Yes Coronavirus symptoms experienced: Fever, Coughing and Shortness of Breath Source History Provided: Patient Mode of Arrival Mode of Arrival: Ambulatory Timing Onset of Chief Complaint: 11/23/19 PMH <Noe Carlton Filed: 12/22/19 09:34> PMH Past Medical History: Yes Past Medical History: Diabetes, Dyslipidemia, Hypertension and PUD Past Medical History Comment: DVT LEFT LEG Past Surgical History: Yes Surgical History: and Cholecystectomy Family History History of Family Medical Conditions: Yes Family Medical History: Diabetes Mellitus, [place], Coronary Artery Disease and Hypertension Social History Does patient currently use any type of tobacco product: No Have you used tobacco products in the last 12 months: No Type of Tobacco Use: None Does any household member use tobacco: No Alcohol Use: None Do you use any recreational Drugs:: No Lives With: Alone Lives Where: Home Travel Risk Coronavirus risk:travel/contact w/high risk person: No Has patient experienced Coronavirus symptoms: Yes Coronavirus symptoms experienced: Fever, Coughing and Shortness of Breath Infectious screening In the last 2 months have you had wt loss of >10#?: NO Have you had fever, night sweats or hemotysis?: No Have you traveled outside the country in the last 6 months?: No Isolation: Droplet ROS <Noe Carlton Filed: 12/22/19 09:34> Review of Systems Constitutional: Chills, Fever, Malaise, Weakness and Fatigue Eyes: No Symptoms Reported ENTM: Ear Pain, Nose Discharge, Nose Congestion and Throat Pain Respiratoy: Non-Productive Cough Cardiovascular: No Symptoms Reported Gastrointestinal/Abdominal: Abdominal Pain and Vomiting Genitourinary: No Symptoms Reported Neurological: Headache Musculoskeletal: No Symptoms Reported Integumentary: No Symptoms Reported Endocrine: No Symptoms Reported Psychiatric: No Symptoms Reported All Other Systems: Reviewed and Negative PE <Noe Carlton - Last Filed: 12/22/19 09:34> Vital Signs Vitals: Temperature 102.9 F Pulse Rate 120 Respiratory Rate 22 Blood Pressure [Right Arm] 124/64 Blood Pressure [Left Arm] 142/68 Blood Pressure 148/74 O2 Sat by Pulse Oximetry 93 General Limitations: No Limitations General Appearance: Alert and Other (pt does not feel well with c/o of fgenral malaise fever myalgias) Head Head Exam: Normal Inspection, Atraumatic and Normocephalic Eyes Eye exam: Normal Appearance and PERRL; negative EOMI ENT ENT Exam: Mucous Membranes Moist and TM's Normal Bilaterally External Ear Exam: Normal External Inspection TM/Canal Exam: Bilateral: Bulging Nose Exam: negative Sinus Tenderness Mouth Exam: negative Drooling Throat Exam: Tonsillar Erythema Neck Neck Exam: Normal Inspection, Full ROM and Trachea Midline Chest Chest Inspection: Normal Inspection and Symmetric Chest Wall Rise Respiratory Respiratory Exam: Normal Lung Sounds Bilat; negative Accessory Muscle Use Respiratory Exam: Bilateral: Clear to Auscultation Cardiovascular Cardiovascular Exam: Regular Rate, Normal Rhythm and Normal Heart Sounds Abdominal Exam Abdominal Exam: Normal Inspection, Normal Bowel Sounds and Soft Extremeties Extremities Exam: Normal Inspection and Full ROM Back Back Exam: Normal Inspection and Full ROM Neurologic Neurological Exam: Alert and Oriented X3 Psychiatric Psychiatric Exam: Normal Affect and Normal Mood Skin Skin Exam: Warm <Anisa Saldaña - Last Filed: 11/25/19 01:21> Vital Signs Vitals: Temperature 102.9 F Pulse Rate 120 Respiratory Rate 22 Blood Pressure [Right Arm] 124/64 Blood Pressure [Left Arm] 142/68 Blood Pressure 148/74 O2 Sat by Pulse Oximetry 93 <Anisa Saldaña - Last Filed: 11/25/19 01:21> Reevaluation 1st: Unchanged Consultation Call Returned: 23:51 (Dr Lugo accepts admission) ROR <Noe Carlton - Last Filed: 12/22/19 09:34> Labs Reviewed Result Diagrams: 12/22/19 05:00 12/22/19 05:00 Laboratory: WBC 3.4 X10^3/uL (3.6-10.0) L 11/24/19 20:20 RBC 3.96 X10^6/uL (3.5-5.4) 11/24/19 20:20 Hgb 11.7 g/dL (12.0-16.0) L 11/24/19 20:20 Hct 34.0 % (36.0-47.0) L 11/24/19 20:20 MCV 85.8 fL (80.0-100.0) 11/24/19 20:20 MCH 29.5 pg (27.0-34.0) 11/24/19 20:20 MCHC 34.3 g/dL (33.0-35.0) 11/24/19 20:20 RDW 13.9 % (11.6-16.5) 11/24/19 20:20 Plt Count 166 X10^3/uL (150.0-450.0) 11/24/19 20:20 MPV 8.0 fL (7.4-11.0) 11/24/19 20:20 Neut % (Auto) 70.2 % (42.0-75.0) 11/24/19 20:20 Lymph % (Auto) 26.4 % (21.0-51.0) 11/24/19 20:20 Callahan % (Auto) 2.7 % (0.0-13.0) 11/24/19 20:20 Eos % (Auto) 0.1 % (0.9-2.9) L 11/24/19 20:20 Baso % (Auto) 0.6 % (0.2-1.0) 11/24/19 20:20 Neut # (Auto) 2.4 x10^3/uL (2.2-4.8) 11/24/19 20:20 Lymph # (Auto) 0.9 X10^3/uL (1.3-2.9) L 11/24/19 20:20 Callahan # (Auto) 0.1 x10^3/uL (0.3-0.8) L 11/24/19 20:20 Eos # (Auto) 0.0 x10^3/uL (0.0-0.2) 11/24/19 20:20 Baso # (Auto) 0.0 X10^3/uL (0.0-0.1) 11/24/19 20:20 Absolute Nucleated RBC 0.1 /100WBC 11/24/19 20:20 Sample Site Rr 11/24/19 21:48 ABG pH 7.500 (7.35-7.45) H 11/24/19 21:48 ABG pCO2 40.0 mmHg (35.0-45.0) 11/24/19 21:48 ABG pO2 51.0 mmHg (80.0-100.0) L 11/24/19 21:48 ABG HCO3 31.2 mmol/L (22-26) H* 11/24/19 21:48 ABG O2 Saturation 89.0 % (90-100) L 11/24/19 21:48 ABG Base Excess 7.4 mmol/L (-2.0-2.0) H 11/24/19 21:48 Willy Test Pos 11/24/19 21:48 A-a Gradient 49.0 mmHg 11/24/19 21:48 FiO2 21.0 11/24/19 21:48 Blood Gas Comments Dulce Maria well sw 11/24/19 21:48 Sodium 137 mmol/L (136-145) 11/24/19 20:20 Corrected Sodium 141 mmol/L (136-145) 11/24/19 20:20 Potassium 3.5 mmol/L (3.5-5.1) 11/24/19 20:20 Chloride 99 mmol/L (98-107) 11/24/19 20:20 Carbon Dioxide 29.8 mmol/L (21-32) 11/24/19 20:20 BUN 11 mg/dL (7-18) 11/24/19 20:20 Creatinine 0.79 mg/dL (0.55-1.02) 11/24/19 20:20 Est GFR (MDRD) Af Amer > 60 (>60) 11/24/19 20:20 Est GFR (MDRD) Non-Af > 60 (>60) 11/24/19 20:20 Glucose 284 mg/dL (65-99) H 11/24/19 20:20 Calcium 7.9 mg/dL (8.5-10.1) L 11/24/19 20:20 Corrected Calcium 8.5 mg/dL (8.5-10.1) 11/24/19 20:20 Ferritin 253 ng/mL (8-252) H 11/24/19 22:42 Total Bilirubin 0.30 mg/dL (0.2-1.0) 11/24/19 20:20 AST 52 Units/L (15-37) H 11/24/19 20:20 ALT 48 Units/L (12-78) 11/24/19 20:20 Alkaline Phosphatase 77 Units/L (46-116) 11/24/19 20:20 Creatine Kinase 121 Units/L (26-192) 11/24/19 20:20 CK-MB (CK-2) < 1.0 ng/mL (0-4.0) 11/24/19 20:20 CK/CKMB % Calc 0.8 % (<4) 11/24/19 20:20 Troponin I < 0.02 ng/mL (0-1.5) 11/24/19 20:20 C-Reactive Protein 112.90 mg/L (0-3.0) H 11/24/19 20:20 Total Protein 7.2 g/dL (6.4-8.2) 11/24/19 20:20 Albumin 3.3 g/dL (3.4-5.0) L 11/24/19 20:20 Globulin 3.9 g/dL (2.5-4.5) 11/24/19 20:20 Albumin/Globulin Ratio 0.8 Ratio (1.1-2.1) L 11/24/19 20:20 Influenza Type A Ag Negative-presumptive (NEGATIVE) 11/24/19 20:30 Influenza Type B Ag Negative-presumptive (NEGATIVE) 11/24/19 20:30 S. pyogenes (TEM-PCR) Not detected (NOT DETECT) 11/24/19 20:30 <Anisa Saldaña - Last Filed: 11/25/19 01:21> Labs Reviewed Laboratory Results Reviewed?: Yes Laboratory: WBC 3.4 X10^3/uL (3.6-10.0) L 11/24/19 20:20 RBC 3.96 X10^6/uL (3.5-5.4) 11/24/19 20:20 Hgb 11.7 g/dL (12.0-16.0) L 11/24/19 20:20 Hct 34.0 % (36.0-47.0) L 11/24/19 20:20 MCV 85.8 fL (80.0-100.0) 11/24/19 20:20 MCH 29.5 pg (27.0-34.0) 11/24/19 20:20 MCHC 34.3 g/dL (33.0-35.0) 11/24/19 20:20 RDW 13.9 % (11.6-16.5) 11/24/19 20:20 Plt Count 166 X10^3/uL (150.0-450.0) 11/24/19 20:20 MPV 8.0 fL (7.4-11.0) 11/24/19 20:20 Neut % (Auto) 70.2 % (42.0-75.0) 11/24/19 20:20 Lymph % (Auto) 26.4 % (21.0-51.0) 11/24/19 20:20 Callahan % (Auto) 2.7 % (0.0-13.0) 11/24/19 20:20 Eos % (Auto) 0.1 % (0.9-2.9) L 11/24/19 20:20 Baso % (Auto) 0.6 % (0.2-1.0) 11/24/19 20:20 Neut # (Auto) 2.4 x10^3/uL (2.2-4.8) 11/24/19 20:20 Lymph # (Auto) 0.9 X10^3/uL (1.3-2.9) L 11/24/19 20:20 Callahan # (Auto) 0.1 x10^3/uL (0.3-0.8) L 11/24/19 20:20 Eos # (Auto) 0.0 x10^3/uL (0.0-0.2) 11/24/19 20:20 Baso # (Auto) 0.0 X10^3/uL (0.0-0.1) 11/24/19 20:20 Absolute Nucleated RBC 0.1 /100WBC 11/24/19 20:20 Sample Site Rr 11/24/19 21:48 ABG pH 7.500 (7.35-7.45) H 11/24/19 21:48 ABG pCO2 40.0 mmHg (35.0-45.0) 11/24/19 21:48 ABG pO2 51.0 mmHg (80.0-100.0) L 11/24/19 21:48 ABG HCO3 31.2 mmol/L (22-26) H* 11/24/19 21:48 ABG O2 Saturation 89.0 % (90-100) L 11/24/19 21:48 ABG Base Excess 7.4 mmol/L (-2.0-2.0) H 11/24/19 21:48 Willy Test Pos 11/24/19 21:48 A-a Gradient 49.0 mmHg 11/24/19 21:48 FiO2 21.0 11/24/19 21:48 Blood Gas Comments Dulce Maria well sw 11/24/19 21:48 Sodium 137 mmol/L (136-145) 11/24/19 20:20 Corrected Sodium 141 mmol/L (136-145) 11/24/19 20:20 Potassium 3.5 mmol/L (3.5-5.1) 11/24/19 20:20 Chloride 99 mmol/L (98-107) 11/24/19 20:20 Carbon Dioxide 29.8 mmol/L (21-32) 11/24/19 20:20 BUN 11 mg/dL (7-18) 11/24/19 20:20 Creatinine 0.79 mg/dL (0.55-1.02) 11/24/19 20:20 Est GFR (MDRD) Af Amer > 60 (>60) 11/24/19 20:20 Est GFR (MDRD) Non-Af > 60 (>60) 11/24/19 20:20 Glucose 284 mg/dL (65-99) H 11/24/19 20:20 Calcium 7.9 mg/dL (8.5-10.1) L 11/24/19 20:20 Corrected Calcium 8.5 mg/dL (8.5-10.1) 11/24/19 20:20 Ferritin 253 ng/mL (8-252) H 11/24/19 22:42 Total Bilirubin 0.30 mg/dL (0.2-1.0) 11/24/19 20:20 AST 52 Units/L (15-37) H 11/24/19 20:20 ALT 48 Units/L (12-78) 11/24/19 20:20 Alkaline Phosphatase 77 Units/L (46-116) 11/24/19 20:20 Creatine Kinase 121 Units/L (26-192) 11/24/19 20:20 CK-MB (CK-2) < 1.0 ng/mL (0-4.0) 11/24/19 20:20 CK/CKMB % Calc 0.8 % (<4) 11/24/19 20:20 Troponin I < 0.02 ng/mL (0-1.5) 11/24/19 20:20 C-Reactive Protein 112.90 mg/L (0-3.0) H 11/24/19 20:20 Total Protein 7.2 g/dL (6.4-8.2) 11/24/19 20:20 Albumin 3.3 g/dL (3.4-5.0) L 11/24/19 20:20 Globulin 3.9 g/dL (2.5-4.5) 11/24/19 20:20 Albumin/Globulin Ratio 0.8 Ratio (1.1-2.1) L 11/24/19 20:20 Influenza Type A Ag Negative-presumptive (NEGATIVE) 11/24/19 20:30 Influenza Type B Ag Negative-presumptive (NEGATIVE) 11/24/19 20:30 S. pyogenes (TEM-PCR) Not detected (NOT DETECT) 11/24/19 20:30 XRAY XRAY Interpreted by: Radiologist X-ray Results: abd series: 1. Bilateral perihilar interstitial prominence. Acute atypical infection cannot be excluded. Correlate clinically. 2. No evidence for acute abdominal pathology. Opioid <Noe Carlton - Last Filed: 12/22/19 09:34> Opioid Risk Tool Age (Jimmy box if 16-45): No History of Preadolescent Sexual Abuse: No Total: 0 Total Score Risk Category: Low Risk Copyright: [facility] predicting aberrant behaviors <Anisa Saldaña - Last Filed: 11/25/19 01:21> Opioid Risk Tool Total: 0 Total Score Risk Category: Low Risk <Noe Carlton - Last Filed: 12/22/19 09:34> Diagnosis Discharge Problem: Bilateral interstitial pneumonia, Diabetes mellitus type 2, Essential hypertension, COVID-19, Hypoxia, Tachycardia Sepsis Qualifiers: Sepsis type: sepsis due to unspecified organism Sepsis acute organ dysfunction status: with acute organ dysfunction Severe sepsis acute organ dysfunction type: acute respiratory failure Acute respiratory failure type: with hypoxia Severe sepsis shock status: without septic shock Qualified Code(s): A41.9 - Sepsis, unspecified organism Instructions Instructions: Shortness of Breath, Adult, Rvrm-sp-Ovun Viral Respiratory Infection, Ntdw-Jc-Xypi Hand Washing, Qbeq-pu-Aoyp Upper Respiratory Infection, Adult, Xbms-bz-Qmgs Fever, Adult Cough, Adult, Raan-rb-Etwe Type 2 Diabetes Mellitus, Self Care, Adult, Iadm-wy-Goke Droplet Precautions, Xwfv-ci-Gsrx Contact Precautions, Kqyb-sb-Ddgp How to Use a Nebulizer, Adult You've Been Prescribed an Antibiotic in the Hospital for an Infection - [facility] (06/2017) Hypertension Forms: Convalescent Plasma Precautions for COVID19 Patient Portal Social Distancing
[2019-11-24 20:25] LABS: BASOPHILS % (AUTO) 0.6 % (0.2-1.0); EOSINOPHILS % (AUTO) 0.1 % (0.9-2.9); HEMOGLOBIN 11.7 g/dL (12.0-16.0); LYMPHOCYTES # (AUTO) 0.9 X10^3/uL (1.3-2.9); LYMPHOCYTES % (AUTO) 26.4 % (21.0-51.0); MEAN CORPUSCULAR HEMOGLOBIN 29.5 pg (27.0-34.0); MEAN CORPUSCULAR HGB CONC 34.3 g/dL (33.0-35.0); MEAN CORPUSCULAR VOLUME 85.8 fL (80.0-100.0); MONOCYTES # (AUTO) 0.1 x10^3/uL (0.3-0.8); MONOCYTES % (AUTO) 2.7 % (0.0-13.0); NEUTROPHILS # (AUTO) 2.4 x10^3/uL (2.2-4.8); NEUTROPHILS % (AUTO) 70.2 % (42.0-75.0); PLATELET COUNT 166 X10^3/uL (150.0-450.0); RED BLOOD COUNT 3.96 X10^6/uL (3.5-5.4); RED CELL DISTRIBUTION WIDTH 13.9 % (11.6-16.5); WHITE BLOOD COUNT 3.4 X10^3/uL (3.6-10.0)
--- NOTE | 2019-11-24 20:34 | RAD ---
ACUTE ABDOMEN SERIESHISTORY:Fever and vomitingStudy: Frontal view of the chest, flat and upright views of the abdomenComparison:NoneFindings:Cardiomediastinal silhouette is enlarged.Bilateral perihilar interstitial prominence.Flat and upright views of the abdomen demonstrates a normal bowel gas pattern.No free air..No abnormal calcifications or abnormal soft tissue shadows. No acute bony abnormalities.IMPRESSION:1. Bilateral perihilar interstitial prominence. Acute atypical infection cannot be excluded. Correlate clinically.2. No evidence for acute abdominal pathology.Electronically signed by: JOSSY RUBI (Nov 24, 2019 20:33:18)
[2019-11-24 20:42] LABS: BLOOD UREA NITROGEN 11 mg/dL (7-18); CALCIUM 7.9 mg/dL (8.5-10.1); CARBON DIOXIDE 29.8 mmol/L (21-32); CHLORIDE 99 mmol/L (98-107); COR NA(FOR HYPERGLY) 141 mmol/L (136-145); CREATININE 0.79 mg/dL (0.55-1.02); SODIUM 137 mmol/L (136-145); TROPONIN I < 0.02 ng/mL (0-1.5); eGFR NON BLACK RACES > 60 (>60)
[2019-11-24 20:46] LABS: ALANINE AMINOTRANSFERASE 48 Units/L (12-78); ALBUMIN 3.3 g/dL (3.4-5.0); ALKALINE PHOSPHATASE 77 Units/L (46-116); ASPARTATE AMINO TRANSFERASE 52 Units/L (15-37); CKMB % 0.8 % (<4); COR CA(FOR HYPOALB) 8.5 mg/dL (8.5-10.1); CREATINE KINASE 121 Units/L (26-192); CREATINE KINASE MB < 1.0 ng/mL (0-4.0); TOTAL PROTEIN 7.2 g/dL (6.4-8.2)
[2019-11-24 22:07] LABS: ABG BASE EXCESS 7.4 mmol/L (-2.0-2.0)
[2019-11-24 22:08] LABS: ABG ALLEN TEST POS; ABG HCO3 31.2 mmol/L (22-26)
[2019-11-25] MEDS ORDERED: ROCEPHIN VIAL 1 GRAM 1 G in NS 100 ML IV + SPIKE MINIBAG* 100 ML IV SCH ×2 (00:07→21:00)
[2019-11-25] MEDS ORDERED: ZITHROMAX INJ 500 MG VIAL 500 MG in NS 250 ML IV 250 ML IV SCH (00:08)
[2019-11-25] MEDS ORDERED: HumuLIN R SC PRN (00:09)
[2019-11-25] MEDS ORDERED: ROCEPHIN VIAL 1 GRAM ONE (00:13)
[2019-11-25] MEDS ORDERED: ZITHROMAX INJ 500 MG VIAL IV ONE (00:14)
[2019-11-25] MEDS ORDERED: NS 250 ML IV 250 ML IV ONE ×2 (00:14→00:19)
[2019-11-25] MEDS ORDERED: NS 50 ML IV + SPIKE MINIBAG* 50 ML IV ONE (00:15)
[2019-11-25] MEDS ORDERED: ULTRAM PO PRN (01:24)
[2019-11-25] MEDS ORDERED: ULTRAM ONE (01:27)
[2019-11-25] MEDS ORDERED: NS 1000 ML 1,000 ML IV SCH (02:00)
[2019-11-25] MEDS ORDERED: ASCORBIC ACID INJ MULTI-DOSE VIAL 1,500 MG in NS 100 ML IV 100 ML IV SCH (03:00)
[2019-11-25] MEDS ORDERED: NS 1000 ML 1,000 ML ONE (04:15)
[2019-11-25] MEDS ORDERED: TYLENOL 325 MG TAB PO ONE (04:47)
[2019-11-25] MEDS: NS 1000 ML 1,000 ML IV SCH (05:10)
[2019-11-25] MEDS: TYLENOL 325 MG TAB PO PRN (05:10)
[2019-11-25] MEDS: ZITHROMAX INJ 500 MG VIAL 500 MG in NS 250 ML IV 250 ML IV SCH ×2 (05:12→21:17)
[2019-11-25 05:18] LABS: BASOPHILS % (AUTO) 0.2 % (0.2-1.0); HEMATOCRIT 34.9 % (36.0-47.0); HEMOGLOBIN 11.9 g/dL (12.0-16.0); LYMPHOCYTES # (AUTO) 1.2 X10^3/uL (1.3-2.9); MEAN CORPUSCULAR HEMOGLOBIN 29.6 pg (27.0-34.0); MEAN PLATELET VOLUME 8.2 fL (7.4-11.0); MONOCYTES # (AUTO) 0.1 x10^3/uL (0.3-0.8); NEUTROPHILS # (AUTO) 2.5 x10^3/uL (2.2-4.8); NEUTROPHILS % (AUTO) 64.8 % (42.0-75.0); PLATELET COUNT 179 X10^3/uL (150.0-450.0); RED BLOOD COUNT 4.01 X10^6/uL (3.5-5.4); RED CELL DISTRIBUTION WIDTH 13.9 % (11.6-16.5); WHITE BLOOD COUNT 3.8 X10^3/uL (3.6-10.0)
[2019-11-25 05:23] LABS: ALANINE AMINOTRANSFERASE 48 Units/L (12-78); ALBUMIN 3.4 g/dL (3.4-5.0); ALKALINE PHOSPHATASE 75 Units/L (46-116); ASPARTATE AMINO TRANSFERASE 50 Units/L (15-37); BLOOD UREA NITROGEN 9 mg/dL (7-18); CALCIUM 7.9 mg/dL (8.5-10.1); CHLORIDE 99 mmol/L (98-107); COR NA(FOR HYPERGLY) 141 mmol/L (136-145); CREATININE 0.79 mg/dL (0.55-1.02); SODIUM 137 mmol/L (136-145); TOTAL PROTEIN 7.5 g/dL (6.4-8.2); eGFR NON BLACK RACES > 60 (>60)
[2019-11-25 05:31] VITALS: BMI 37.5
[2019-11-25] MEDS: ASCORBIC ACID INJ MULTI-DOSE VIAL 1,500 MG in NS 100 ML IV 100 ML IV SCH ×4 (05:55→23:31)
[2019-11-25] MEDS ORDERED: PLAQUENIL PO SCH ×2 (06:00→09:00)
[2019-11-25] MEDS ORDERED: DECADRON TAB PO SCH ×2 (06:00→09:00)
[2019-11-25] MEDS ORDERED: POTASSIUM CHLORIDE LIQ 20 MEQ UDC PO PRN (07:29)
[2019-11-25] MEDS ORDERED: POTASSIUM CHL 60 MEQ/NS 0.45% 500 ML IV PRN (07:29)
[2019-11-25] MEDS ORDERED: KLOR-CON PO PRN (07:29)
[2019-11-25] MEDS ORDERED: K-RIDER 10 MEQ/NS 100 ML 10 MEQ/100 ML BAG IV PRN (07:29)
[2019-11-25] MEDS ORDERED: POTASSIUM CHL 40 MEQ/NS 0.45% 500 ML IV PRN (07:29)
[2019-11-25] MEDS ORDERED: MAGNESIUM SULFATE 1 GRAM/100 mL PREMIX 1 GM/100 ML BAG IV PRN (07:29)
[2019-11-25] MEDS ORDERED: MICRO K EXTEN CAP 10 MEQ PO PRN (07:29)
[2019-11-25] MEDS ORDERED: LOVENOX INJ 30 MG SYR SC SCH (09:00)
[2019-11-25] MEDS ORDERED: VITAMIN A PO SCH ×2 (09:00)
[2019-11-25] MEDS ORDERED: TRICOR TAB 160 MG PO SCH (09:00)
[2019-11-25] MEDS ORDERED: REMDESIVIR (INVESTIGATIONAL DRUG GS-5734) 200 MG in NS 250 ML IV 250 ML IV NR (09:00)
[2019-11-25] MEDS ORDERED: LANTUS SC SCH (09:00)
[2019-11-25] MEDS ORDERED: ZINC SULFATE PO SCH (09:00)
[2019-11-25] MEDS ORDERED: VITAMIN D (1.25MG) PO SCH ×2 (09:00)
[2019-11-25] MEDS ORDERED: K-DUR TAB 20 MEQ PO ONE (09:02)
[2019-11-25] MEDS ORDERED: PLAQUENIL ONE (09:02)
[2019-11-25] MEDS ORDERED: DECADRON TAB ONE (09:02)
[2019-11-25] MEDS ORDERED: NS 100 ML IV + SPIKE MINIBAG* 100 ML IV ONE (09:03)
[2019-11-25] MEDS ORDERED: ZOSYN VIAL 3.375 GRAMS IV ONE (09:04)
[2019-11-25] MEDS: FLONASE NASAL SPRAY ENOSTRIL SCH ×2 (09:45→20:46)
[2019-11-25] MEDS: ZINC SULFATE PO SCH ×2 (09:46→20:47)
[2019-11-25] MEDS: LOVENOX INJ 30 MG SYR SC SCH ×2 (09:46→20:47)
[2019-11-25] MEDS: TRICOR TAB 160 MG PO SCH (09:47)
[2019-11-25] MEDS: SOLU-Medrol 125 MG VIAL IVP SCH ×3 (09:48→21:09)
[2019-11-25] MEDS: K-DUR TAB 20 MEQ PO PRN (09:48)
[2019-11-25] MEDS: MAG-OX TAB PO SCH ×2 (09:50→16:07)
[2019-11-25] MEDS: ULTRAM PO PRN (10:20)
[2019-11-25] MEDS: ZOSYN VIAL 3.375 GRAMS 3.375 G in NS 100 ML IV + SPIKE MINIBAG* 100 ML IV SCH ×3 (11:05→21:09)
[2019-11-25] MEDS: HumuLIN R SUBCUT PRN ×3 (11:16→20:49)
[2019-11-25 14:50] LABS: BILIRUBIN,URINE NEGATIVE (NEGATIVE); BLOOD/HEMOGLOBIN,URINE NEGATIVE (NEGATIVE); GLUCOSE, URINE 4+ (NEGATIVE); KETONES,URINE 2+ (NEGATIVE); LEUKOCYTE ESTERASE ,URINE NEGATIVE (NEGATIVE); NITRITES,URINE NEGATIVE (NEGATIVE); PROTEIN,URINE 3+ (NEGATIVE); UROBILINOGEN,URINE NORMAL (NORMAL)
[2019-11-25 14:59] LABS: APPEARANCE,URINE CLEAR (CLEAR); COLOR,URINE YELLOW (YELLOW)
[2019-11-25 15:04] LABS: BACTERIA,URINE TRACE /HPF (NEGATIVE); RBC,URINE 0-2 /HPF (0-3); SQUAMOUS EPITHELIAL CELL,UR FEW /HPF (NEGATIVE)
--- NOTE | 2019-11-25 18:17 | DR.H&P ---
H&P - History & Physical for Day of: H&P Date: 11/25/19 - Chief Complaint Chief Complaint: SOB, CCC, WEAKNESS - History of Present Illness History of Present Illness: PT IS 59 BF ER ADMISSION WITH CO CCC, SOB. PT HAD PMH OF HTN, DM, DVT ON ELECTRICIAN DECK ANTICOAG THERAPY, OA. PT HAD BILATERAL PNEUMONIA WIT H HYPOXIA, POSITIVE FOR COVID 19 - Past Medical History Past Medical History: Arthritis, Diabetes, Dyslipidemia, Hypertension, PUD Additional Medical History: DVT - Past Surgical History Surgical History: , Cholecystectomy - Family History Family Medical History: Diabetes Mellitus, [place], Coronary Artery Disease, Hypertension - Social History Does patient currently use any type of tobacco product: No Have you used tobacco products in the last 12 months: No Type of Tobacco Use: None Does any household member use tobacco: No Alcohol Use: None Drug Use: None - Medications Home Medications: No Known Drug Allergies Allergy (Verified 03/12/19 17:18) CONTINUE taking the following medications insulin NPH and regular human [Humulin 70/30 U-100 Insulin] 20 unit SUBCUT BID 11/25/19 [History] omeprazole 40 mg PO DAILY 11/25/19 [History] quetiapine 25 mg PO DAILY 11/25/19 [History] warfarin 10 mg PO DAILY 11/25/19 [History] - Review of Systems Constitutional: Fever, Chills, Weakness Eyes: No Symptoms Reported ENT: No Symptoms Reported Respiratory: Cough, Shortness of Breath, SOB with Excertion Cardiovascular: Edema Gastrointestinal: Nausea, Diarrhea Genitourinary: No Symptoms Reported Musculoskeletal: Back Pain Skin: No Symptoms Reported Neurological: Weakness - Physical Exam Vital Signs: Temperature 100.1 F Pulse Rate [Right Brachial] 103 Pulse Rate [Left Brachial] 98 Pulse Rate 90 Respiratory Rate 24 Blood Pressure [Right Arm] 159/79 Blood Pressure [Left Arm] 125/58 Blood Pressure 153/74 O2 Sat by Pulse Oximetry 94 Oriented: Normal Eyes: Normal Ear: Normal Nose: Normal Throat: Normal Respiratory: Diminished Throughout Cardiovascular: Normal : Normal Auscultation: Bowel Sounds: Normal Palpation: Normal Tenderness: Epigastric, Mild Skin: Normal Musculoskeletal: Back:Lumbar Psychiatric: Normal Speech Pattern: Clear, Appropriate - Assessment/Plan (1) Bilateral interstitial pneumonia Status: Acute Plan: DUE TO COVID 19. PT ADMITTED TO ICU ISOLATION. STRICT I&OS, SUPPLEMENTAL O2, CONTINUOUS CARDIAC MONITORING. ABG AND EKG ON ADMISSION. IV ZITHROMAX AND ZOSYN, IV REMDESIVIR AND CONVALESCENT PLASMA. BS CONTROL, SSI COVERAGE, AM LABS, BC ON ADMISSION, FEVER CONTRO RESP THERAPY (2) Diabetes mellitus type 2 Status: Acute (3) Hypoxia Status: Acute (4) Essential hypertension Status: Acute (5) Gastroesophageal reflux disease Status: Active (6) Degenerative lumbar spinal stenosis Status: Acute - Allergies Allergies/Adverse Reactions: Allergies Allergy/AdvReac Type Severity Reaction Status Date / Time No Known Drug Allergies Allergy Verified 03/12/19 17:18
[2019-11-25] MEDS ORDERED: SNACK - Diabetic Appropriate PO SCH (20:00)
[2019-11-25] MEDS: SNACK - Diabetic Appropriate PO SCH (20:46)
[2019-11-26] MEDS: ASCORBIC ACID INJ MULTI-DOSE VIAL 1,500 MG in NS 100 ML IV 100 ML IV SCH ×3 (04:07→17:32)
[2019-11-26] MEDS: NS 1000 ML 1,000 ML IV SCH (04:07)
[2019-11-26 04:21] LABS: BASOPHILS % (AUTO) 0.5 % (0.2-1.0); HEMATOCRIT 33.3 % (36.0-47.0); HEMOGLOBIN 11.4 g/dL (12.0-16.0); LYMPHOCYTES # (AUTO) 0.8 X10^3/uL (1.3-2.9); LYMPHOCYTES % (AUTO) 28.4 % (21.0-51.0); MEAN CORPUSCULAR HEMOGLOBIN 29.6 pg (27.0-34.0); MEAN CORPUSCULAR HGB CONC 34.3 g/dL (33.0-35.0); MEAN CORPUSCULAR VOLUME 86.2 fL (80.0-100.0); MEAN PLATELET VOLUME 7.3 fL (7.4-11.0); MONOCYTES # (AUTO) 0.1 x10^3/uL (0.3-0.8); MONOCYTES % (AUTO) 2.8 % (0.0-13.0); NEUTROPHILS # (AUTO) 1.8 x10^3/uL (2.2-4.8); NEUTROPHILS % (AUTO) 68.3 % (42.0-75.0); PLATELET COUNT 202 X10^3/uL (150.0-450.0); RED BLOOD COUNT 3.86 X10^6/uL (3.5-5.4); RED CELL DISTRIBUTION WIDTH 13.9 % (11.6-16.5); WHITE BLOOD COUNT 2.7 X10^3/uL (3.6-10.0)
[2019-11-26 04:27] LABS: ALANINE AMINOTRANSFERASE 52 Units/L (12-78); ALKALINE PHOSPHATASE 72 Units/L (46-116); ASPARTATE AMINO TRANSFERASE 44 Units/L (15-37); BLOOD UREA NITROGEN 15 mg/dL (7-18); CALCIUM 7.9 mg/dL (8.5-10.1); CARBON DIOXIDE 29.3 mmol/L (21-32); CHLORIDE 102 mmol/L (98-107); COR CA(FOR HYPOALB) 8.7 mg/dL (8.5-10.1); COR NA(FOR HYPERGLY) 144 mmol/L (136-145); CREATININE 0.76 mg/dL (0.55-1.02); MAGNESIUM 1.7 mg/dL (1.7-2.9); SODIUM 140 mmol/L (136-145); TOTAL PROTEIN 7.1 g/dL (6.4-8.2); eGFR NON BLACK RACES > 60 (>60)
[2019-11-26] MEDS: SOLU-Medrol 125 MG VIAL IVP SCH ×3 (05:38→21:01)
[2019-11-26] MEDS: ZOSYN VIAL 3.375 GRAMS 3.375 G in NS 100 ML IV + SPIKE MINIBAG* 100 ML IV SCH ×3 (05:38→22:50)
[2019-11-26] MEDS: HumuLIN R SUBCUT PRN ×4 (05:39→22:07)
[2019-11-26] MEDS: MAG-OX TAB PO SCH ×2 (06:13→17:32)
[2019-11-26] MEDS ORDERED: LANTUS SC SCH (09:00)
[2019-11-26] MEDS: FLONASE NASAL SPRAY ENOSTRIL SCH ×2 (09:13→21:00)
[2019-11-26] MEDS: LOVENOX INJ 30 MG SYR SC SCH ×2 (09:14→21:02)
[2019-11-26] MEDS: TRICOR TAB 160 MG PO SCH (09:15)
[2019-11-26] MEDS: ZINC SULFATE PO SCH ×2 (09:15→21:01)
[2019-11-26] MEDS: REMDESIVIR (INVESTIGATIONAL DRUG GS-5734) 100 MG in NS 250 ML IV 250 ML IV SCH (09:15)
[2019-11-26 10:27] LABS: CKMB % 1.1 % (<4); CREATINE KINASE 89 Units/L (26-192); CREATINE KINASE MB < 1.0 ng/mL (0-4.0); TROPONIN I < 0.02 ng/mL (0-1.5)
[2019-11-26] MEDS: PROTONIX INJ 40 MG VIAL IVP SCH (11:30)
[2019-11-26] MEDS: ROBITUSSIN DM PO SCH ×3 (12:15→21:00)
--- NOTE | 2019-11-26 13:05 | RAD ---
HISTORYSOB, COVID+STUDYCHEST, 1 [id number]/15/2020FINDINGSAbnormal opacity in the right perihilar region was not present on the prior study from March but was present on the abdomen series 11/24/2019. This could be pneumonia. Findings are probably not changed significantly.Upper lungs clear. No effusion.The heart size is magnified.Bones are unremarkable.IMPRESSIONUnchanged pneumoniaElectronically signed by: Jigar Saldaña (Nov 26, 2019 13:05:58)
[2019-11-26] MEDS: DUONEB 0.5 MG/3 MG (3 mL) NEB SCH ×3 (14:05→21:10)
[2019-11-26] MEDS ORDERED: NS 500 ML IV 500 ML IV ONE (15:11)
[2019-11-26] MEDS ORDERED: BENADRYL INJ 50 MG VIAL IV ONE (15:14)
[2019-11-26] MEDS: TYLENOL 325 MG TAB PO PRN (15:28)
[2019-11-26 15:32] LABS: ABG BASE EXCESS 0.3 mmol/L (-2.0-2.0); ABG HCO3 24.6 mmol/L (22-26)
[2019-11-26] MEDS ORDERED: ZESTRIL TAB 20 MG ONE (17:22)
[2019-11-26 17:31] LABS: CREATINE KINASE 97 Units/L (26-192); CREATINE KINASE MB < 1.0 ng/mL (0-4.0); TROPONIN I < 0.02 ng/mL (0-1.5)
[2019-11-26] MEDS: ZESTRIL TAB 20 MG PO SCH (17:33)
[2019-11-26 18:30] LABS: BILIRUBIN,URINE NEGATIVE (NEGATIVE); BLOOD/HEMOGLOBIN,URINE NEGATIVE (NEGATIVE); GLUCOSE, URINE 4+ (NEGATIVE); KETONES,URINE 3+ (NEGATIVE); LEUKOCYTE ESTERASE ,URINE NEGATIVE (NEGATIVE); NITRITES,URINE NEGATIVE (NEGATIVE); PROTEIN,URINE 2+ (NEGATIVE); UROBILINOGEN,URINE NORMAL (NORMAL)
[2019-11-26 18:45] LABS: AMORPHOUS SEDIMENT,UR 1+ /HPF (NEGATIVE); APPEARANCE,URINE CLEAR (CLEAR); BACTERIA,URINE NEGATIVE /HPF (NEGATIVE); COLOR,URINE PALE YELLOW (YELLOW); RBC,URINE NONE SEEN /HPF (0-3); SQUAMOUS EPITHELIAL CELL,UR FEW /HPF (NEGATIVE)
[2019-11-26] MEDS: ZITHROMAX INJ 500 MG VIAL 500 MG in NS 250 ML IV 250 ML IV SCH (21:01)
[2019-11-26] MEDS: SNACK - Diabetic Appropriate PO SCH (21:03)
[2019-11-26] MEDS: ULTRAM PO PRN (21:04)
[2019-11-26 22:37] LABS: CKMB % 1.3 % (<4); CREATINE KINASE 98 Units/L (26-192); CREATINE KINASE MB 1.3 ng/mL (0-4.0); TROPONIN I < 0.02 ng/mL (0-1.5)
[2019-11-27] MEDS: ASCORBIC ACID INJ MULTI-DOSE VIAL 1,500 MG in NS 100 ML IV 100 ML IV SCH ×5 (00:01→23:30)
[2019-11-27] MEDS: DUONEB 0.5 MG/3 MG (3 mL) NEB SCH ×6 (01:30→21:30)
[2019-11-27] MEDS ORDERED: NS 100 ML IV 100 ML IV ONE (04:12)
[2019-11-27 05:18] LABS: BASOPHILS % (AUTO) 0.5 % (0.2-1.0); HEMATOCRIT 32.1 % (36.0-47.0); LYMPHOCYTES # (AUTO) 0.7 X10^3/uL (1.3-2.9); LYMPHOCYTES % (AUTO) 12.3 % (21.0-51.0); MEAN CORPUSCULAR HEMOGLOBIN 29.7 pg (27.0-34.0); MEAN CORPUSCULAR HGB CONC 34.3 g/dL (33.0-35.0); MEAN CORPUSCULAR VOLUME 86.4 fL (80.0-100.0); MEAN PLATELET VOLUME 7.8 fL (7.4-11.0); MONOCYTES # (AUTO) 0.2 x10^3/uL (0.3-0.8); MONOCYTES % (AUTO) 3.1 % (0.0-13.0); NEUTROPHILS # (AUTO) 4.8 x10^3/uL (2.2-4.8); NEUTROPHILS % (AUTO) 84.1 % (42.0-75.0); PLATELET COUNT 223 X10^3/uL (150.0-450.0); RED BLOOD COUNT 3.72 X10^6/uL (3.5-5.4); RED CELL DISTRIBUTION WIDTH 14.2 % (11.6-16.5); WHITE BLOOD COUNT 5.7 X10^3/uL (3.6-10.0)
[2019-11-27 05:27] LABS: ALANINE AMINOTRANSFERASE 50 Units/L (12-78); ALKALINE PHOSPHATASE 70 Units/L (46-116); ASPARTATE AMINO TRANSFERASE 39 Units/L (15-37); BLOOD UREA NITROGEN 19 mg/dL (7-18); CALCIUM 8.2 mg/dL (8.5-10.1); CARBON DIOXIDE 27.1 mmol/L (21-32); CHLORIDE 104 mmol/L (98-107); COR NA(FOR HYPERGLY) 147 mmol/L (136-145); CREATININE 0.83 mg/dL (0.55-1.02); SODIUM 141 mmol/L (136-145); TOTAL PROTEIN 6.9 g/dL (6.4-8.2); eGFR NON BLACK RACES > 60 (>60)
[2019-11-27] MEDS: NS 1000 ML 1,000 ML IV SCH (05:33)
[2019-11-27] MEDS ORDERED: ASCORBIC ACID INJ MULTI-DOSE VIAL IV ONE (05:37)
[2019-11-27] MEDS: SOLU-Medrol 125 MG VIAL IVP SCH ×3 (06:07→21:46)
[2019-11-27] MEDS: ZOSYN VIAL 3.375 GRAMS 3.375 G in NS 100 ML IV + SPIKE MINIBAG* 100 ML IV SCH ×3 (06:07→21:46)
[2019-11-27] MEDS: MAG-OX TAB PO SCH ×2 (06:07→17:25)
[2019-11-27] MEDS: HumuLIN R SUBCUT PRN ×3 (06:26→21:53)
[2019-11-27] MEDS ORDERED: ZESTRIL TAB 20 MG ONE (07:29)
[2019-11-27] MEDS: FLONASE NASAL SPRAY ENOSTRIL SCH ×2 (08:46→21:44)
[2019-11-27] MEDS: VITAMIN A PO SCH (08:46)
[2019-11-27] MEDS: ZESTRIL TAB 20 MG PO SCH (08:46)
[2019-11-27] MEDS: TRICOR TAB 160 MG PO SCH (08:47)
[2019-11-27] MEDS: VITAMIN D3 125 mcg (5,000 UNITS) PO SCH (08:47)
[2019-11-27] MEDS: LOVENOX INJ 30 MG SYR SC SCH ×2 (08:48→21:44)
[2019-11-27] MEDS: PROTONIX INJ 40 MG VIAL IVP SCH (08:48)
[2019-11-27] MEDS: REMDESIVIR (INVESTIGATIONAL DRUG GS-5734) 100 MG in NS 250 ML IV 250 ML IV SCH (08:49)
[2019-11-27] MEDS: ROBITUSSIN DM PO SCH ×4 (08:50→21:46)
[2019-11-27] MEDS: ZINC SULFATE PO SCH ×2 (08:50→21:46)
[2019-11-27] MEDS ORDERED: VITAMIN A PO SCH (09:00)
[2019-11-27] MEDS ORDERED: LANTUS SC SCH ×2 (09:00)
[2019-11-27] MEDS ORDERED: VITAMIN D3 125 mcg (5,000 UNITS) PO SCH (09:00)
[2019-11-27] MEDS: NORCO 5/325 MG TAB PO PRN (18:01)
[2019-11-27] MEDS: SNACK - Diabetic Appropriate PO SCH (21:44)
[2019-11-27] MEDS: ZITHROMAX INJ 500 MG VIAL 500 MG in NS 250 ML IV 250 ML IV SCH (21:46)
[2019-11-28] MEDS: DUONEB 0.5 MG/3 MG (3 mL) NEB SCH ×6 (00:28→21:42)
[2019-11-28] MEDS: ULTRAM PO PRN (03:55)
[2019-11-28 05:28] LABS: BASOPHILS % (AUTO) 0.3 % (0.2-1.0); HEMATOCRIT 30.7 % (36.0-47.0); HEMOGLOBIN 10.7 g/dL (12.0-16.0); LYMPHOCYTES # (AUTO) 0.5 X10^3/uL (1.3-2.9); LYMPHOCYTES % (AUTO) 8.4 % (21.0-51.0); MEAN CORPUSCULAR HEMOGLOBIN 29.6 pg (27.0-34.0); MEAN CORPUSCULAR HGB CONC 34.8 g/dL (33.0-35.0); MEAN CORPUSCULAR VOLUME 85.2 fL (80.0-100.0); MEAN PLATELET VOLUME 7.5 fL (7.4-11.0); MONOCYTES # (AUTO) 0.2 x10^3/uL (0.3-0.8); MONOCYTES % (AUTO) 3.8 % (0.0-13.0); NEUTROPHILS # (AUTO) 5.7 x10^3/uL (2.2-4.8); NEUTROPHILS % (AUTO) 87.5 % (42.0-75.0); PLATELET COUNT 256 X10^3/uL (150.0-450.0); RED BLOOD COUNT 3.61 X10^6/uL (3.5-5.4); RED CELL DISTRIBUTION WIDTH 14.4 % (11.6-16.5); WHITE BLOOD COUNT 6.5 X10^3/uL (3.6-10.0)
[2019-11-28] MEDS: NORCO 5/325 MG TAB PO PRN ×2 (05:45→17:35)
[2019-11-28] MEDS: ZOSYN VIAL 3.375 GRAMS 3.375 G in NS 100 ML IV + SPIKE MINIBAG* 100 ML IV SCH ×3 (05:45→23:30)
[2019-11-28] MEDS: ASCORBIC ACID INJ MULTI-DOSE VIAL 1,500 MG in NS 100 ML IV 100 ML IV SCH ×4 (05:45→23:00)
[2019-11-28] MEDS: SOLU-Medrol 125 MG VIAL IVP SCH ×3 (05:45→22:48)
[2019-11-28 05:48] LABS: ALANINE AMINOTRANSFERASE 50 Units/L (12-78); ALKALINE PHOSPHATASE 73 Units/L (46-116); ASPARTATE AMINO TRANSFERASE 44 Units/L (15-37); BLOOD UREA NITROGEN 15 mg/dL (7-18); CALCIUM 8.4 mg/dL (8.5-10.1); CHLORIDE 105 mmol/L (98-107); COR CA(FOR HYPOALB) 9.2 mg/dL (8.5-10.1); COR NA(FOR HYPERGLY) 144 mmol/L (136-145); CREATININE 0.73 mg/dL (0.55-1.02); SODIUM 140 mmol/L (136-145); TOTAL PROTEIN 6.8 g/dL (6.4-8.2); eGFR NON BLACK RACES > 60 (>60)
--- NOTE | 2019-11-28 05:58 | RAD ---
HISTORYFollow-up COVID-19STUDYChest AP [id number]/16/2020FINDINGSHeart size is accentuated by hypo inflation. The heart is likely mildly enlarged. No congestive heart failure is noted. The right upper, right lower lobe, and left pe rihilar infiltrates are somewhat more prominent than on the prior examination. No pleural effusions a re identified. Bony thorax is unremarkable.IMPRESSIONMild cardiomegaly without congestive heart failu reIncreasing bilateral infiltrates when compared to the prior examinationElectronically signed by: MALORIE VAZQUEZ (Nov 28, 2019 05:58:25)
[2019-11-28] MEDS: NS 1000 ML 1,000 ML IV SCH (06:28)
[2019-11-28] MEDS: MAG-OX TAB PO SCH ×2 (06:29→17:31)
[2019-11-28] MEDS: HumuLIN R SUBCUT PRN ×3 (06:29→22:49)
[2019-11-28] MEDS ORDERED: ZESTRIL TAB 20 MG ONE (07:17)
[2019-11-28 08:44] LABS: ABG BASE EXCESS -0.4 mmol/L (-2.0-2.0); ABG HCO3 24.1 mmol/L (22-26)
[2019-11-28 08:46] LABS: ABG ALLEN TEST POS
[2019-11-28] MEDS: ZESTRIL TAB 20 MG PO SCH (08:46)
[2019-11-28] MEDS: FLONASE NASAL SPRAY ENOSTRIL SCH ×2 (08:46→22:47)
[2019-11-28] MEDS: LANTUS SC SCH (08:47)
[2019-11-28] MEDS: LOVENOX INJ 30 MG SYR SC SCH (08:47)
[2019-11-28] MEDS: PROTONIX INJ 40 MG VIAL IVP SCH (08:48)
[2019-11-28] MEDS: ROBITUSSIN DM PO SCH ×4 (08:49→22:48)
[2019-11-28] MEDS: TRICOR TAB 160 MG PO SCH (08:49)
[2019-11-28] MEDS: VITAMIN D3 125 mcg (5,000 UNITS) PO SCH (08:50)
[2019-11-28] MEDS: ZINC SULFATE PO SCH ×2 (08:50→22:48)
[2019-11-28] MEDS: VITAMIN A PO SCH (08:50)
[2019-11-28] MEDS: REMDESIVIR (INVESTIGATIONAL DRUG GS-5734) 100 MG in NS 250 ML IV 250 ML IV SCH (11:52)
[2019-11-28 12:15] LABS: ABG BASE EXCESS 1.3 mmol/L (-2.0-2.0); ABG HCO3 25.9 mmol/L (22-26)
[2019-11-28 12:17] LABS: ABG ALLEN TEST POS
--- NOTE | 2019-11-28 12:17 | CT ---
HISTORYCOVID, sepsisSTUDYCTA chest with contrast for pulmonary embolusTechnique: Axial post-contrast images with coronal, sagittal, and 3 dimensional maximum intensity projection images obtained in evaluated. Dose reduction procedures were used with mA/kv adjusted for body size.COMPARISONNoneFINDINGSThere is no evidence for acute pulmonary thromboembolic disease. Examination of the mediastinum demonstrated no evidence for mediastinal masses, enlarged mediastinal or enlarged hilar adenopathy or significant aortic abnormality. No pleural effusions are identified. No chest wall or axillary abnormality is identified. Those portions of the upper abdominal organs visualized were within normal limits. Examination of the lung cohen demonstrated diffuse ground-glass infiltrates throughout the right upper lobe and both lower lobes. There are some patchy peripheral left upper lobe ground-glass infiltrates. There is subpleural sparing. In the lower lobes there is some peribronchial consolidation with bronchiectasis. Findings are consistent with COVID-19 lung involvement. No definite nodules or masses are identified although if present they could be obscured by the infiltrates noted.IMPRESSIONNo evidence for acute pulmonary thromboembolic diseaseDiffuse right upper, right lower, and left lower lobe ground-glass infiltrates demonstrating pleural sparing, some areas of bilateral lower lobe peribronchial consolidation and bronchiectasis and some patchy peripheral left upper lobe ground-glass infiltrates. Findings are certainly consistent with but not definitely diagnostic of COVID-19 lung involvementElectronically signed by: KATHLEEN VAZQUEZ (Nov 28, 2019 12:16:28)
[2019-11-28 14:05] LABS: ABG BASE EXCESS 0.3 mmol/L (-2.0-2.0); ABG HCO3 24.6 mmol/L (22-26)
--- NOTE | 2019-11-28 17:36 | VAS ---
HISTORYLT LEG PAINSTUDYLOWER EXT VENOUS, BILATERALCOMPARISONNoneTECHNIQUEMultiple campos scale and color flow Doppler images of the deep venous system were obtained of the right and left lower extremity.FINDINGSThe deep venous system of the right and left lower extremities were evaluated from the level of the common femoral vein through the popliteal vein. Normal color flow and augmentation can be observed on the right. There is also normal flow noted on the right. However on the left the level of the CF the/greater saphenous junction there appears to be incomplete compression and color flow and is concerning for nonocclusive thrombus. The remainder of the left lower extremity appears patent.IMPRESSIONPartial thrombus at the level of the greater saphenous/COPD junction on the left.Electronically signed by: MILO PETE (Nov 28, 2019 17:35:44)
[2019-11-28 18:00] LABS: ABG HCO3 26.5 mmol/L (22-26)
[2019-11-28] MEDS ORDERED: HEPARIN SODIUM INJ 5000 UNITS IVP ONE (18:54)
[2019-11-28 19:28] LABS: HEMATOCRIT 31.7 % (36.0-47.0); HEMOGLOBIN 10.8 g/dL (12.0-16.0)
[2019-11-28] MEDS: HEPARIN SODIUM IN D5W 25,000 UNITS/500 ML BAG IV PRN (19:30)
[2019-11-28] MEDS: SNACK - Diabetic Appropriate PO SCH (21:00)
[2019-11-28] MEDS: ZITHROMAX INJ 500 MG VIAL 500 MG in NS 250 ML IV 250 ML IV SCH (22:48)
[2019-11-29] MEDS: DUONEB 0.5 MG/3 MG (3 mL) NEB SCH ×6 (00:39→20:30)
[2019-11-29 04:22] LABS: BASOPHILS % (AUTO) 0.4 % (0.2-1.0); EOSINOPHILS # (AUTO) 0.1 x10^3/uL (0.0-0.2); EOSINOPHILS % (AUTO) 0.6 % (0.9-2.9); HEMATOCRIT 32.1 % (36.0-47.0); LYMPHOCYTES # (AUTO) 0.6 X10^3/uL (1.3-2.9); MEAN CORPUSCULAR HEMOGLOBIN 29.7 pg (27.0-34.0); MEAN CORPUSCULAR HGB CONC 34.4 g/dL (33.0-35.0); MEAN CORPUSCULAR VOLUME 86.2 fL (80.0-100.0); MEAN PLATELET VOLUME 7.7 fL (7.4-11.0); MONOCYTES # (AUTO) 0.2 x10^3/uL (0.3-0.8); MONOCYTES % (AUTO) 2.6 % (0.0-13.0); NEUTROPHILS % (AUTO) 89.4 % (42.0-75.0); PLATELET COUNT 296 X10^3/uL (150.0-450.0); RED BLOOD COUNT 3.72 X10^6/uL (3.5-5.4); WHITE BLOOD COUNT 8.9 X10^3/uL (3.6-10.0)
[2019-11-29 04:30] LABS: ALANINE AMINOTRANSFERASE 48 Units/L (12-78); ALBUMIN 2.8 g/dL (3.4-5.0); ALKALINE PHOSPHATASE 92 Units/L (46-116); ASPARTATE AMINO TRANSFERASE 45 Units/L (15-37); BLOOD UREA NITROGEN 13 mg/dL (7-18); CALCIUM 8.2 mg/dL (8.5-10.1); CARBON DIOXIDE 28.4 mmol/L (21-32); CHLORIDE 103 mmol/L (98-107); COR CA(FOR HYPOALB) 9.2 mg/dL (8.5-10.1); COR NA(FOR HYPERGLY) 141 mmol/L (136-145); CREATININE 0.78 mg/dL (0.55-1.02); SODIUM 138 mmol/L (136-145); TOTAL PROTEIN 6.5 g/dL (6.4-8.2); eGFR NON BLACK RACES > 60 (>60)
[2019-11-29] MEDS: ASCORBIC ACID INJ MULTI-DOSE VIAL 1,500 MG in NS 100 ML IV 100 ML IV SCH ×4 (05:30→22:35)
[2019-11-29 05:56] LABS: ABG ALLEN TEST POS; ABG BASE EXCESS 3.9 mmol/L (-2.0-2.0); ABG HCO3 28.5 mmol/L (22-26)
[2019-11-29] MEDS: NS 1000 ML 1,000 ML IV SCH (06:00)
[2019-11-29] MEDS: SOLU-Medrol 125 MG VIAL IVP SCH ×3 (06:00→21:40)
[2019-11-29 06:08] LABS: BILIRUBIN,URINE NEGATIVE (NEGATIVE); BLOOD/HEMOGLOBIN,URINE NEGATIVE (NEGATIVE); GLUCOSE, URINE 4+ (NEGATIVE); KETONES,URINE NEGATIVE (NEGATIVE); LEUKOCYTE ESTERASE ,URINE NEGATIVE (NEGATIVE); NITRITES,URINE NEGATIVE (NEGATIVE); PROTEIN,URINE 2+ (NEGATIVE); UROBILINOGEN,URINE NORMAL (NORMAL)
[2019-11-29 06:09] LABS: APPEARANCE,URINE CLEAR (CLEAR); COLOR,URINE YELLOW (YELLOW)
[2019-11-29 06:14] LABS: BACTERIA,URINE NEGATIVE /HPF (NEGATIVE); RBC,URINE NONE SEEN /HPF (0-3); SQUAMOUS EPITHELIAL CELL,UR NEGATIVE /HPF (NEGATIVE)
[2019-11-29] MEDS: ZOSYN VIAL 3.375 GRAMS 3.375 G in NS 100 ML IV + SPIKE MINIBAG* 100 ML IV SCH ×3 (06:25→21:30)
[2019-11-29] MEDS: HumuLIN R SUBCUT PRN ×2 (06:26→12:30)
[2019-11-29] MEDS ORDERED: ZESTRIL TAB 20 MG ONE (09:44)
[2019-11-29] MEDS: FLONASE NASAL SPRAY ENOSTRIL SCH ×2 (10:23→21:23)
[2019-11-29] MEDS: MAG-OX TAB PO SCH ×2 (10:23→17:22)
[2019-11-29] MEDS: LANTUS SC SCH (10:24)
[2019-11-29] MEDS: REMDESIVIR (INVESTIGATIONAL DRUG GS-5734) 100 MG in NS 250 ML IV 250 ML IV SCH (10:24)
[2019-11-29] MEDS: PROTONIX INJ 40 MG VIAL IVP SCH (10:24)
[2019-11-29] MEDS: NORCO 5/325 MG TAB PO PRN ×2 (10:25→17:30)
[2019-11-29] MEDS: ZINC SULFATE PO SCH ×2 (10:25→21:30)
[2019-11-29] MEDS: ZESTRIL TAB 20 MG PO SCH (10:25)
[2019-11-29] MEDS: ROBITUSSIN DM PO SCH ×4 (10:25→21:23)
[2019-11-29] MEDS: TRICOR TAB 160 MG PO SCH (10:26)
[2019-11-29] MEDS: VITAMIN D3 125 mcg (5,000 UNITS) PO SCH (10:26)
[2019-11-29] MEDS: VITAMIN A PO SCH (10:26)
--- NOTE | 2019-11-29 11:56 | PCM.PROG ---
Progress Note Progress Note for Day of Date of Exam: 11/29/19 Subjective Subjective: Pt is a 59 yo f admitted for COVID19 pneumonia(positive 11/24) and hypoxia. Overnight patient became acutely dyspneic with O2 saturations dropping into the low 70s. Heated high flow was increased but patient continued to have difficulty breathing. She was placed on BiPAP overnight and did well. Labs/imaging: Wbc 8.9, Hgb 11, Plt 296, Na 138, K 4.0, Cr 0.78, Gluc 222, CRP 27, AB.44/42/60/28.5/92% on FiO2 90% on BiPAP. Her treatment course includes: Remdesivir, Convalescent plasma x1, Solumedrol 80mg q8h, Abx: Zosyn+Azithromycin, Bronchodilators, pneumonia protocol. She had lower extremity U/S that showed left partial thrombus in left leg. Heparin gtt was started for anticoagulation. Will attempt to place back on heated high flow today if tolerated. Continue to monitor and follow up labs/imaging in the morning. Past Medical Family Social History Past Med/Fam/Surg Hx: No changes since H&P Allergies: Allergies No Known Drug Allergies Allergy (Verified 03/12/19 17:18) Review of Systems ROS: No change since H&P Vital Signs and I&O's Vital Signs: Temperature 98.9 F Pulse Rate [Right Brachial] 91 Pulse Rate [Left Brachial] 98 Pulse Rate 92 Respiratory Rate 32 Blood Pressure [Right Arm] 168/84 Blood Pressure [Left Arm] 125/58 Blood Pressure 153/74 O2 Sat by Pulse Oximetry 93 Intake and Output: Intake & Output 11/26/19 11/27/19 11/28/19 11/29/19 23:59 23:59 23:59 23:59 Intake Total 3607 / 3607 3361 / 3361 3302 / 3302 608 / 608 Output Total 904 / 904 850 / 850 Balance 3607 / 3607 3361 / 3361 2398 / 2398 -242 / -242 Physical Exam Oriented: Normal Eyes: Normal Ear: Normal Nose: Normal Throat: Normal Respiratory: Diminished Cardiovascular: Normal : Normal Auscultation: Bowel Sounds: Normal Tenderness: Epigastric and Mild Skin: Normal Musculoskeletal: Back:Lumbar Psychiatric: Normal Speech Pattern: Clear and Appropriate Laboratory and Diagnostics Result Diagrams: 11/29/19 04:05 11/29/19 04:05 Labs: 11/25/19 04:53 Blood Blood Culture - Preliminary 11/25/19 04:58 Blood Blood Culture - Preliminary 11/25/19 13:50 Urine,Clean Catch Urine Culture - Final Laboratory WBC 8.9 X10^3/uL (3.6-10.0) 11/29/19 04:05 RBC 3.72 X10^6/uL (3.5-5.4) 11/29/19 04:05 Hgb 11.0 g/dL (12.0-16.0) L 11/29/19 04:05 Hct 32.1 % (36.0-47.0) L 11/29/19 04:05 MCV 86.2 fL (80.0-100.0) 11/29/19 04:05 MCH 29.7 pg (27.0-34.0) 11/29/19 04:05 MCHC 34.4 g/dL (33.0-35.0) 11/29/19 04:05 RDW 14.0 % (11.6-16.5) 11/29/19 04:05 Plt Count 296 X10^3/uL (150.0-450.0) 11/29/19 04:05 MPV 7.7 fL (7.4-11.0) 11/29/19 04:05 Neut % (Auto) 89.4 % (42.0-75.0) H 11/29/19 04:05 Lymph % (Auto) 7.0 % (21.0-51.0) L 11/29/19 04:05 [place] % (Auto) 2.6 % (0.0-13.0) 11/29/19 04:05 Eos % (Auto) 0.6 % (0.9-2.9) L 11/29/19 04:05 Baso % (Auto) 0.4 % (0.2-1.0) 11/29/19 04:05 Neut # (Auto) 8.0 x10^3/uL (2.2-4.8) H 11/29/19 04:05 Lymph # (Auto) 0.6 X10^3/uL (1.3-2.9) L 11/29/19 04:05 [place] # (Auto) 0.2 x10^3/uL (0.3-0.8) L 11/29/19 04:05 Eos # (Auto) 0.1 x10^3/uL (0.0-0.2) 11/29/19 04:05 Baso # (Auto) 0.0 X10^3/uL (0.0-0.1) 11/29/19 04:05 Absolute Nucleated RBC 0.1 /100WBC 11/29/19 04:05 PT 29.7 SECONDS (11.8-14.3) 11/29/19 01:41 INR Target Range - 11/29/19 01:41 INR 2.93 (0.8-1.3) H 11/29/19 01:41 APTT 99.1 SECONDS (22.9-36.5) H 11/29/19 10:52 PTT Comment - 11/29/19 10:52 D-Dimer 0.45 ug/ml (0.0-0.57) 11/28/19 17:18 Sample Site Rr 11/29/19 06:00 ABG pH 7.440 (7.35-7.45) 11/29/19 06:00 ABG pCO2 42.0 mmHg (35.0-45.0) 11/29/19 06:00 ABG pO2 60.0 mmHg (80.0-100.0) L 11/29/19 06:00 ABG HCO3 28.5 mmol/L (22-26) H 11/29/19 06:00 ABG O2 Saturation 92.0 % (90-100) 11/29/19 06:00 ABG Base Excess 3.9 mmol/L (-2.0-2.0) H 11/29/19 06:00 Willy Test Pos 11/29/19 06:00 A-a Gradient 529.0 mmHg 11/29/19 06:00 FiO2 90.0 11/29/19 06:00 Blood Gas Comments Fio2 90, al well sw 11/29/19 06:00 Sodium 138 mmol/L (136-145) 11/29/19 04:05 Corrected Sodium 141 mmol/L (136-145) 11/29/19 04:05 Potassium 4.0 mmol/L (3.5-5.1) 11/29/19 04:05 Chloride 103 mmol/L (98-107) 11/29/19 04:05 Carbon Dioxide 28.4 mmol/L (21-32) 11/29/19 04:05 BUN 13 mg/dL (7-18) 11/29/19 04:05 Creatinine 0.78 mg/dL (0.55-1.02) 11/29/19 04:05 Est GFR (MDRD) Af Amer > 60 (>60) 11/29/19 04:05 Est GFR (MDRD) Non-Af > 60 (>60) 11/29/19 04:05 Glucose 222 mg/dL (65-99) H 11/29/19 04:05 POC Glucose (mg/dL) 297 mg/dL (65-99) H 11/28/19 20:36 Lactic Acid 0.9 mmol/L (0.4-2.0) 11/25/19 08:26 Calcium 8.2 mg/dL (8.5-10.1) L 11/29/19 04:05 Corrected Calcium 9.2 mg/dL (8.5-10.1) 11/29/19 04:05 Magnesium 1.7 mg/dL (1.7-2.9) 11/26/19 04:07 Ferritin 345 ng/mL (8-252) H 11/28/19 04:49 Total Bilirubin 0.40 mg/dL (0.2-1.0) 11/29/19 04:05 AST 45 Units/L (15-37) H 11/29/19 04:05 ALT 48 Units/L (12-78) 11/29/19 04:05 Alkaline Phosphatase 92 Units/L (46-116) 11/29/19 04:05 Creatine Kinase 98 Units/L (26-192) 11/26/19 22:07 CK-MB (CK-2) 1.3 ng/mL (0-4.0) 11/26/19 22:07 CK/CKMB % Calc 1.3 % (<4) 11/26/19 22:07 Troponin I < 0.02 ng/mL (0-1.5) 11/26/19 22:07 C-Reactive Protein 27.80 mg/L (0-3.0) H 11/28/19 04:49 Total Protein 6.5 g/dL (6.4-8.2) 11/29/19 04:05 Albumin 2.8 g/dL (3.4-5.0) L 11/29/19 04:05 Globulin 3.7 g/dL (2.5-4.5) 11/29/19 04:05 Albumin/Globulin Ratio 0.8 Ratio (1.1-2.1) L 11/29/19 04:05 Specimen Type Catherized urine 11/29/19 05:53 Urine Color Yellow (YELLOW) 11/29/19 05:53 Urine Appearance Clear (CLEAR) 11/29/19 05:53 Urine pH 7.0 (5.0 - 8.0) 11/29/19 05:53 Ur Specific [place] 1.005 (1.000-1.030) 11/29/19 05:53 Urine Protein 2+ (NEGATIVE) 11/29/19 05:53 Urine Glucose (UA) 4+ (NEGATIVE) 11/29/19 05:53 Urine Ketones Negative (NEGATIVE) 11/29/19 05:53 Urine Occult Blood Negative (NEGATIVE) 11/29/19 05:53 Urine Nitrite Negative (NEGATIVE) 11/29/19 05:53 Urine Bilirubin Negative (NEGATIVE) 11/29/19 05:53 Urine Acetone Small (NEGATIVE) H 11/26/19 17:50 Urine Urobilinogen Normal (NORMAL) 11/29/19 05:53 Ur Leukocyte Esterase Negative (NEGATIVE) 11/29/19 05:53 Urine RBC None seen /HPF (0-3) 11/29/19 05:53 Urine WBC None seen /HPF (0-5) 11/29/19 05:53 Ur Squamous Epith Cells Negative /HPF (NEGATIVE) 11/29/19 05:53 Amorphous Sediment 1+ /HPF (NEGATIVE) 11/26/19 17:51 Urine Bacteria Negative /HPF (NEGATIVE) 11/29/19 05:53 Ur Culture Indicated? No/not indicated 11/29/19 05:53 Influenza Type A Ag Negative-presumptive (NEGATIVE) 11/24/19 20:30 Influenza Type B Ag Negative-presumptive (NEGATIVE) 11/24/19 20:30 SARS-CoV-2 (PCR) Positive (NEGATIVE) A 11/25/19 00:14 S. pyogenes (TEM-PCR) Not detected (NOT DETECT) 11/24/19 20:30 Blood Type O POSITIVE 11/25/19 08:42 Plan (1) Bilateral interstitial pneumonia: Status: Acute Plan: DUE TO COVID 19. PT ADMITTED TO ICU ISOLATION STRICT I&OS, SUPPLEMENTAL O2, CONTINUOUS CARDIAC MONITORING IV ZITHROMAX AND ZOSYN, IV REMDESIVIR AND CONVALESCENT PLASMA BS CONTROL, SSI COVERAGE, AM LABS, BC ON ADMISSION, FEVER CONTRO RESP THERAPY (2) Diabetes mellitus type 2: Status: Acute (3) Hypoxia: Status: Acute (4) Essential hypertension: Status: Acute (5) Gastroesophageal reflux disease: Status: Active (6) Degenerative lumbar spinal stenosis: Status: Acute
[2019-11-29] MEDS: PEPCID 20 MG IV PREMIX* 20 MG/50 ML BAG IV SCH (14:05)
[2019-11-29] MEDS ORDERED: HumuLIN R ONE (16:58)
[2019-11-29] MEDS: HumuLIN R SC PRN ×2 (17:23→21:50)
[2019-11-29] MEDS: HEPARIN SODIUM IN D5W 25,000 UNITS/500 ML BAG IV PRN (19:30)
[2019-11-29] MEDS: SNACK - Diabetic Appropriate PO SCH (20:04)
[2019-11-29] MEDS: ZITHROMAX INJ 500 MG VIAL 500 MG in NS 250 ML IV 250 ML IV SCH (23:00)
[2019-11-30] MEDS: DUONEB 0.5 MG/3 MG (3 mL) NEB SCH ×6 (00:20→21:25)
[2019-11-30] MEDS: NORCO 5/325 MG TAB PO PRN ×3 (03:49→21:05)
[2019-11-30] MEDS: NS 1000 ML 1,000 ML IV SCH (05:20)
[2019-11-30] MEDS: ASCORBIC ACID INJ MULTI-DOSE VIAL 1,500 MG in NS 100 ML IV 100 ML IV SCH ×4 (05:20→22:00)
[2019-11-30] MEDS: SOLU-Medrol 125 MG VIAL IVP SCH ×3 (06:07→21:00)
[2019-11-30] MEDS: ZOSYN VIAL 3.375 GRAMS 3.375 G in NS 100 ML IV + SPIKE MINIBAG* 100 ML IV SCH ×3 (06:07→21:41)
[2019-11-30] MEDS: HumuLIN R SC PRN ×4 (06:08→21:10)
[2019-11-30] MEDS: MAG-OX TAB PO SCH ×2 (06:08→16:44)
[2019-11-30 06:25] LABS: BASOPHILS % (AUTO) 0.5 % (0.2-1.0); HEMATOCRIT 29.8 % (36.0-47.0); HEMOGLOBIN 10.3 g/dL (12.0-16.0); LYMPHOCYTES # (AUTO) 0.5 X10^3/uL (1.3-2.9); LYMPHOCYTES % (AUTO) 6.5 % (21.0-51.0); MEAN CORPUSCULAR HEMOGLOBIN 29.6 pg (27.0-34.0); MEAN CORPUSCULAR HGB CONC 34.6 g/dL (33.0-35.0); MEAN CORPUSCULAR VOLUME 85.5 fL (80.0-100.0); MEAN PLATELET VOLUME 7.5 fL (7.4-11.0); MONOCYTES # (AUTO) 0.3 x10^3/uL (0.3-0.8); MONOCYTES % (AUTO) 3.3 % (0.0-13.0); NEUTROPHILS # (AUTO) 7.5 x10^3/uL (2.2-4.8); NEUTROPHILS % (AUTO) 89.7 % (42.0-75.0); PLATELET COUNT 299 X10^3/uL (150.0-450.0); RED BLOOD COUNT 3.48 X10^6/uL (3.5-5.4); RED CELL DISTRIBUTION WIDTH 14.4 % (11.6-16.5); WHITE BLOOD COUNT 8.4 X10^3/uL (3.6-10.0)
[2019-11-30 06:42] LABS: ALANINE AMINOTRANSFERASE 43 Units/L (12-78); ALBUMIN 2.6 g/dL (3.4-5.0); ALKALINE PHOSPHATASE 113 Units/L (46-116); ASPARTATE AMINO TRANSFERASE 37 Units/L (15-37); BLOOD UREA NITROGEN 12 mg/dL (7-18); CALCIUM 8.3 mg/dL (8.5-10.1); CARBON DIOXIDE 27.1 mmol/L (21-32); CHLORIDE 102 mmol/L (98-107); COR CA(FOR HYPOALB) 9.4 mg/dL (8.5-10.1); COR NA(FOR HYPERGLY) 139 mmol/L (136-145); CREATININE 0.71 mg/dL (0.55-1.02); SODIUM 137 mmol/L (136-145); TOTAL PROTEIN 6.4 g/dL (6.4-8.2); eGFR NON BLACK RACES > 60 (>60)
[2019-11-30] MEDS ORDERED: ZESTRIL TAB 20 MG ONE (08:17)
[2019-11-30] MEDS: FLONASE NASAL SPRAY ENOSTRIL SCH ×2 (09:04→21:05)
[2019-11-30] MEDS: ZESTRIL TAB 20 MG PO SCH (09:04)
[2019-11-30] MEDS: LANTUS SC SCH (09:04)
[2019-11-30] MEDS: VITAMIN D3 125 mcg (5,000 UNITS) PO SCH (09:05)
[2019-11-30] MEDS: VITAMIN A PO SCH (09:05)
[2019-11-30] MEDS: ZINC SULFATE PO SCH ×2 (09:05→21:05)
[2019-11-30] MEDS: PEPCID 20 MG IV PREMIX* 20 MG/50 ML BAG IV SCH (09:05)
[2019-11-30] MEDS: PROTONIX INJ 40 MG VIAL IVP SCH (09:05)
[2019-11-30] MEDS: ROBITUSSIN DM PO SCH ×4 (09:06→21:00)
--- NOTE | 2019-11-30 09:23 | RAD ---
HISTORYPneumoniaSTUDYPortable AP [id number]/2020FINDINGSModerately severe stable cardiac enlargement. Diffuse confluent airs pace disease is noted in both lungs, slightly increased since prior. No large pleural effusion or ext rapulmonary air is identified.IMPRESSIONCardiomegaly with bilateral pneumonia and/or pulmonary edema, slightly increased since 2 days earlier.Electronically signed by: ARMANDO BARRAGAN (Nov 30, 2019 09:23 :11)
[2019-11-30] MEDS ORDERED: LASIX IVP ONE (09:36)
--- NOTE | 2019-11-30 09:57 | PCM.PROG ---
Progress Note Progress Note for Day of Date of Exam: 11/30/19 Subjective Subjective: Pt is a 59 yo f admitted for COVID19 pneumonia(positive 11/24) and hypoxia. This morning she is on BiPAP, she has required continuously and overnight. She is oxygenating well on it. Labs/imaging: Wbc 8.4, Hgb 10.3, Plt 299, Na 137, K 4.1, Cr 0.71, Gluc 199, CRP 27>52. Will get ABG this morning, result pending. Her treatment course includes: Remdesivir, Convalescent plasma x1, Solumedrol 80mg q8h, Abx: Zosyn + Azithromycin, Bronchodilators, Heparin gtt(partial thrombus in left leg), pneumonia protocol. CXR: cardiomegaly with bilateral pneumonia and/or pulmonary edema, slightly increased since 2 days earlier. IV lasix 40mg x1 ordered. Will also get Echo to evaluate cardiac function. Try again today to place back on heated high flow today if tolerated. Continue to monitor and follow up labs/imaging in the morning. Past Medical Family Social History Past Med/Fam/Surg Hx: No changes since H&P Allergies: Allergies No Known Drug Allergies Allergy (Verified 03/12/19 17:18) Review of Systems ROS: No change since H&P Vital Signs and I&O's Vital Signs: Temperature 98.9 F Pulse Rate [Right Brachial] 98 Pulse Rate [Left Brachial] 98 Pulse Rate 84 Respiratory Rate 37 Blood Pressure [Right Arm] 155/71 Blood Pressure [Left Arm] 125/58 Blood Pressure 153/74 O2 Sat by Pulse Oximetry 86 Intake and Output: Intake & Output 11/27/19 11/28/19 11/29/19 11/30/19 23:59 23:59 23:59 23:59 Intake Total 3361 / 3361 3302 / 3302 2947 / 2947 530 / 530 Output Total 904 / 904 2950 / 2950 500 / 500 Balance 3361 / 3361 2398 / 2398 -3 / -3 Physical Exam Oriented: Normal Eyes: Normal Ear: Normal Nose: Normal Throat: Normal Respiratory: Diminished Cardiovascular: Normal : Normal Auscultation: Bowel Sounds: Normal Tenderness: Epigastric and Mild Skin: Normal Musculoskeletal: Back:Lumbar Psychiatric: Normal Speech Pattern: Clear and Appropriate Laboratory and Diagnostics Result Diagrams: 11/30/19 06:05 11/30/19 06:05 Labs: 11/25/19 04:53 Blood Blood Culture - Final 11/25/19 04:58 Blood Blood Culture - Final 11/25/19 13:50 Urine,Clean Catch Urine Culture - Final Laboratory WBC 8.4 X10^3/uL (3.6-10.0) 11/30/19 06:05 RBC 3.48 X10^6/uL (3.5-5.4) L 11/30/19 06:05 Hgb 10.3 g/dL (12.0-16.0) L 11/30/19 06:05 Hct 29.8 % (36.0-47.0) L 11/30/19 06:05 MCV 85.5 fL (80.0-100.0) 11/30/19 06:05 MCH 29.6 pg (27.0-34.0) 11/30/19 06:05 MCHC 34.6 g/dL (33.0-35.0) 11/30/19 06:05 RDW 14.4 % (11.6-16.5) 11/30/19 06:05 Plt Count 299 X10^3/uL (150.0-450.0) 11/30/19 06:05 MPV 7.5 fL (7.4-11.0) 11/30/19 06:05 Neut % (Auto) 89.7 % (42.0-75.0) H 11/30/19 06:05 Lymph % (Auto) 6.5 % (21.0-51.0) L 11/30/19 06:05 [place] % (Auto) 3.3 % (0.0-13.0) 11/30/19 06:05 Eos % (Auto) 0.0 % (0.9-2.9) L 11/30/19 06:05 Baso % (Auto) 0.5 % (0.2-1.0) 11/30/19 06:05 Neut # (Auto) 7.5 x10^3/uL (2.2-4.8) H 11/30/19 06:05 Lymph # (Auto) 0.5 X10^3/uL (1.3-2.9) L 11/30/19 06:05 [place] # (Auto) 0.3 x10^3/uL (0.3-0.8) 11/30/19 06:05 Eos # (Auto) 0.0 x10^3/uL (0.0-0.2) 11/30/19 06:05 Baso # (Auto) 0.0 X10^3/uL (0.0-0.1) 11/30/19 06:05 Absolute Nucleated RBC 0.0 /100WBC 11/30/19 06:05 PT 29.7 SECONDS (11.8-14.3) 11/29/19 01:41 INR Target Range - 11/29/19 01:41 INR 2.93 (0.8-1.3) H 11/29/19 01:41 APTT 78.6 SECONDS (22.9-36.5) H 11/30/19 06:05 PTT Comment - 11/30/19 06:05 D-Dimer 0.45 ug/ml (0.0-0.57) 11/28/19 17:18 Sample Site Rr 11/29/19 06:00 ABG pH 7.440 (7.35-7.45) 11/29/19 06:00 ABG pCO2 42.0 mmHg (35.0-45.0) 11/29/19 06:00 ABG pO2 60.0 mmHg (80.0-100.0) L 11/29/19 06:00 ABG HCO3 28.5 mmol/L (22-26) H 11/29/19 06:00 ABG O2 Saturation 92.0 % (90-100) 11/29/19 06:00 ABG Base Excess 3.9 mmol/L (-2.0-2.0) H 11/29/19 06:00 Willy Test Pos 11/29/19 06:00 A-a Gradient 529.0 mmHg 11/29/19 06:00 FiO2 90.0 11/29/19 06:00 Blood Gas Comments Fio2 90, al well sw 11/29/19 06:00 Sodium 137 mmol/L (136-145) 11/30/19 06:05 Corrected Sodium 139 mmol/L (136-145) 11/30/19 06:05 Potassium 4.1 mmol/L (3.5-5.1) 11/30/19 06:05 Chloride 102 mmol/L (98-107) 11/30/19 06:05 Carbon Dioxide 27.1 mmol/L (21-32) 11/30/19 06:05 BUN 12 mg/dL (7-18) 11/30/19 06:05 Creatinine 0.71 mg/dL (0.55-1.02) 11/30/19 06:05 Est GFR (MDRD) Af Amer > 60 (>60) 11/30/19 06:05 Est GFR (MDRD) Non-Af > 60 (>60) 11/30/19 06:05 Glucose 199 mg/dL (65-99) H 11/30/19 06:05 POC Glucose (mg/dL) 195 mg/dL (65-99) H 11/30/19 05:30 Lactic Acid 0.9 mmol/L (0.4-2.0) 11/25/19 08:26 Calcium 8.3 mg/dL (8.5-10.1) L 11/30/19 06:05 Corrected Calcium 9.4 mg/dL (8.5-10.1) 11/30/19 06:05 Magnesium 1.7 mg/dL (1.7-2.9) 11/26/19 04:07 Ferritin 345 ng/mL (8-252) H 11/28/19 04:49 Total Bilirubin 0.50 mg/dL (0.2-1.0) 11/30/19 06:05 AST 37 Units/L (15-37) 11/30/19 06:05 ALT 43 Units/L (12-78) 11/30/19 06:05 Alkaline Phosphatase 113 Units/L (46-116) 11/30/19 06:05 Creatine Kinase 98 Units/L (26-192) 11/26/19 22:07 CK-MB (CK-2) 1.3 ng/mL (0-4.0) 11/26/19 22:07 CK/CKMB % Calc 1.3 % (<4) 11/26/19 22:07 Troponin I < 0.02 ng/mL (0-1.5) 11/26/19 22:07 C-Reactive Protein 52.70 mg/L (0-3.0) H 11/30/19 06:05 Total Protein 6.4 g/dL (6.4-8.2) 11/30/19 06:05 Albumin 2.6 g/dL (3.4-5.0) L 11/30/19 06:05 Globulin 3.8 g/dL (2.5-4.5) 11/30/19 06:05 Albumin/Globulin Ratio 0.7 Ratio (1.1-2.1) L 11/30/19 06:05 Specimen Type Catherized urine 11/29/19 05:53 Urine Color Yellow (YELLOW) 11/29/19 05:53 Urine Appearance Clear (CLEAR) 11/29/19 05:53 Urine pH 7.0 (5.0 - 8.0) 11/29/19 05:53 Ur Specific [place] 1.005 (1.000-1.030) 11/29/19 05:53 Urine Protein 2+ (NEGATIVE) 11/29/19 05:53 Urine Glucose (UA) 4+ (NEGATIVE) 11/29/19 05:53 Urine Ketones Negative (NEGATIVE) 11/29/19 05:53 Urine Occult Blood Negative (NEGATIVE) 11/29/19 05:53 Urine Nitrite Negative (NEGATIVE) 11/29/19 05:53 Urine Bilirubin Negative (NEGATIVE) 11/29/19 05:53 Urine Acetone Small (NEGATIVE) H 11/26/19 17:50 Urine Urobilinogen Normal (NORMAL) 11/29/19 05:53 Ur Leukocyte Esterase Negative (NEGATIVE) 11/29/19 05:53 Urine RBC None seen /HPF (0-3) 11/29/19 05:53 Urine WBC None seen /HPF (0-5) 11/29/19 05:53 Ur Squamous Epith Cells Negative /HPF (NEGATIVE) 11/29/19 05:53 Amorphous Sediment 1+ /HPF (NEGATIVE) 11/26/19 17:51 Urine Bacteria Negative /HPF (NEGATIVE) 11/29/19 05:53 Ur Culture Indicated? No/not indicated 11/29/19 05:53 Influenza Type A Ag Negative-presumptive (NEGATIVE) 11/24/19 20:30 Influenza Type B Ag Negative-presumptive (NEGATIVE) 11/24/19 20:30 SARS-CoV-2 (PCR) Positive (NEGATIVE) A 11/25/19 00:14 S. pyogenes (TEM-PCR) Not detected (NOT DETECT) 11/24/19 20:30 Blood Type O POSITIVE 11/25/19 08:42 Plan (1) Bilateral interstitial pneumonia: Status: Acute Plan: DUE TO COVID 19. PT ADMITTED TO ICU ISOLATION STRICT I&OS, SUPPLEMENTAL O2, CONTINUOUS CARDIAC MONITORING IV ZITHROMAX AND ZOSYN, IV REMDESIVIR AND CONVALESCENT PLASMA BS CONTROL, SSI COVERAGE, AM LABS, BC ON ADMISSION, FEVER CONTRO RESP THERAPY (2) Diabetes mellitus type 2: Status: Acute (3) Hypoxia: Status: Acute (4) Essential hypertension: Status: Acute (5) Gastroesophageal reflux disease: Status: Active (6) Degenerative lumbar spinal stenosis: Status: Acute
[2019-11-30 10:46] LABS: ABG BASE EXCESS 5.8 mmol/L (-2.0-2.0)
[2019-11-30 10:47] LABS: ABG HCO3 30.6 mmol/L (22-26)
[2019-11-30] MEDS: HEPARIN SODIUM IN D5W 25,000 UNITS/500 ML BAG IV PRN (20:43)
[2019-11-30] MEDS: ATIVAN INJ 2 MG VIAL IVP PRN (20:45)
[2019-11-30] MEDS: COLACE CAP 100 MG PO SCH (21:05)
[2019-11-30] MEDS: TRICOR TAB 160 MG PO SCH (21:05)
[2019-11-30] MEDS: SNACK - Diabetic Appropriate PO SCH (21:10)
[2019-11-30] MEDS: ZITHROMAX INJ 500 MG VIAL 500 MG in NS 250 ML IV 250 ML IV SCH (22:41)
[2019-12-01] MEDS: DUONEB 0.5 MG/3 MG (3 mL) NEB SCH ×6 (01:33→21:00)
[2019-12-01 05:24] LABS: BASOPHILS % (AUTO) 0.3 % (0.2-1.0); HEMATOCRIT 31.5 % (36.0-47.0); HEMOGLOBIN 10.9 g/dL (12.0-16.0); LYMPHOCYTES # (AUTO) 0.5 X10^3/uL (1.3-2.9); MEAN CORPUSCULAR HEMOGLOBIN 29.4 pg (27.0-34.0); MEAN CORPUSCULAR HGB CONC 34.5 g/dL (33.0-35.0); MEAN CORPUSCULAR VOLUME 85.2 fL (80.0-100.0); MEAN PLATELET VOLUME 8.1 fL (7.4-11.0); MONOCYTES # (AUTO) 0.3 x10^3/uL (0.3-0.8); MONOCYTES % (AUTO) 3.8 % (0.0-13.0); NEUTROPHILS # (AUTO) 7.3 x10^3/uL (2.2-4.8); NEUTROPHILS % (AUTO) 89.9 % (42.0-75.0); PLATELET COUNT 374 X10^3/uL (150.0-450.0); RED BLOOD COUNT 3.69 X10^6/uL (3.5-5.4); RED CELL DISTRIBUTION WIDTH 14.1 % (11.6-16.5); WHITE BLOOD COUNT 8.2 X10^3/uL (3.6-10.0)
[2019-12-01 05:30] LABS: ALANINE AMINOTRANSFERASE 37 Units/L (12-78); ALBUMIN 2.6 g/dL (3.4-5.0); ALKALINE PHOSPHATASE 125 Units/L (46-116); ASPARTATE AMINO TRANSFERASE 29 Units/L (15-37); BLOOD UREA NITROGEN 14 mg/dL (7-18); CALCIUM 8.6 mg/dL (8.5-10.1); CHLORIDE 102 mmol/L (98-107); COR CA(FOR HYPOALB) 9.7 mg/dL (8.5-10.1); COR NA(FOR HYPERGLY) 139 mmol/L (136-145); CREATININE 0.69 mg/dL (0.55-1.02); SODIUM 138 mmol/L (136-145); TOTAL PROTEIN 6.5 g/dL (6.4-8.2); eGFR NON BLACK RACES > 60 (>60)
[2019-12-01] MEDS: SOLU-Medrol 125 MG VIAL IVP SCH ×3 (05:40→21:30)
[2019-12-01] MEDS: ASCORBIC ACID INJ MULTI-DOSE VIAL 1,500 MG in NS 100 ML IV 100 ML IV SCH ×4 (05:45→21:30)
[2019-12-01] MEDS: NS 1000 ML 1,000 ML IV SCH ×2 (05:50→06:24)
[2019-12-01 05:55] LABS: ABG BASE EXCESS 9.5 mmol/L (-2.0-2.0)
[2019-12-01 05:57] LABS: ABG ALLEN TEST POS; ABG HCO3 33.5 mmol/L (22-26)
[2019-12-01] MEDS: ZOSYN VIAL 3.375 GRAMS 3.375 G in NS 100 ML IV + SPIKE MINIBAG* 100 ML IV SCH ×3 (06:25→22:05)
[2019-12-01] MEDS: MAG-OX TAB PO SCH ×2 (06:26→17:11)
[2019-12-01] MEDS ORDERED: ZESTRIL TAB 20 MG ONE (07:52)
[2019-12-01] MEDS: FLONASE NASAL SPRAY ENOSTRIL SCH ×2 (08:13→20:00)
[2019-12-01] MEDS: LANTUS SC SCH (08:14)
[2019-12-01] MEDS: PROTONIX INJ 40 MG VIAL IVP SCH (08:15)
[2019-12-01] MEDS: PEPCID 20 MG IV PREMIX* 20 MG/50 ML BAG IV SCH (08:15)
[2019-12-01] MEDS: VITAMIN D3 125 mcg (5,000 UNITS) PO SCH (08:16)
[2019-12-01] MEDS: TRICOR TAB 160 MG PO SCH (08:16)
[2019-12-01] MEDS: ROBITUSSIN DM PO SCH ×4 (08:16→21:45)
[2019-12-01] MEDS: ZESTRIL TAB 20 MG PO SCH (08:16)
[2019-12-01] MEDS: ZINC SULFATE PO SCH ×2 (08:17→21:45)
[2019-12-01] MEDS: VITAMIN A PO SCH (08:32)
[2019-12-01] MEDS: LASIX IVP SCH ×2 (08:42→17:11)
[2019-12-01] MEDS: K-DUR TAB 20 MEQ PO PRN (08:50)
[2019-12-01] MEDS: NORCO 5/325 MG TAB PO PRN ×2 (08:50→21:45)
[2019-12-01] MEDS: HumuLIN R SC PRN ×3 (11:45→21:40)
[2019-12-01] MEDS: TYLENOL 325 MG TAB PO PRN ×2 (11:55→18:17)
[2019-12-01] MEDS: SNACK - Diabetic Appropriate PO SCH (20:09)
[2019-12-01] MEDS: HEPARIN SODIUM IN D5W 25,000 UNITS/500 ML BAG IV PRN (21:20)
[2019-12-01] MEDS: ATIVAN INJ 2 MG VIAL IVP PRN (21:25)
[2019-12-01] MEDS: COLACE CAP 100 MG PO SCH (21:45)
[2019-12-01] MEDS: ZITHROMAX INJ 500 MG VIAL 500 MG in NS 250 ML IV 250 ML IV SCH (23:10)
[2019-12-02] MEDS: DUONEB 0.5 MG/3 MG (3 mL) NEB SCH ×6 (01:00→21:05)
[2019-12-02 05:18] LABS: MEAN CORPUSCULAR HEMOGLOBIN 29.4 pg (27.0-34.0)
[2019-12-02 05:20] LABS: BASOPHILS % (AUTO) 0 % (0.2-1.0); EOSINOPHILS % (AUTO) 0.1 % (0.9-2.9); LYMPHOCYTES # (AUTO) 0.3 X10^3/uL (1.3-2.9); LYMPHOCYTES % (AUTO) 4.8 % (21.0-51.0); MEAN CORPUSCULAR HGB CONC 34.5 g/dL (33.0-35.0); MEAN CORPUSCULAR VOLUME 85.1 fL (80.0-100.0); MEAN PLATELET VOLUME 7.4 fL (7.4-11.0); MONOCYTES # (AUTO) 0.2 x10^3/uL (0.3-0.8); MONOCYTES % (AUTO) 3.3 % (0.0-13.0); NEUTROPHILS # (AUTO) 6.1 x10^3/uL (2.2-4.8); NEUTROPHILS % (AUTO) 91.8 % (42.0-75.0); PLATELET COUNT 375 X10^3/uL (150.0-450.0); RED BLOOD COUNT 3.76 X10^6/uL (3.5-5.4); RED CELL DISTRIBUTION WIDTH 14.1 % (11.6-16.5); WHITE BLOOD COUNT 6.7 X10^3/uL (3.6-10.0)
[2019-12-02 05:32] LABS: ALANINE AMINOTRANSFERASE 34 Units/L (12-78); ALBUMIN 2.5 g/dL (3.4-5.0); ALKALINE PHOSPHATASE 114 Units/L (46-116); ASPARTATE AMINO TRANSFERASE 25 Units/L (15-37); BLOOD UREA NITROGEN 17 mg/dL (7-18); CALCIUM 8.4 mg/dL (8.5-10.1); CARBON DIOXIDE 27.9 mmol/L (21-32); CHLORIDE 100 mmol/L (98-107); COR CA(FOR HYPOALB) 9.6 mg/dL (8.5-10.1); COR NA(FOR HYPERGLY) 138 mmol/L (136-145); CREATININE 0.86 mg/dL (0.55-1.02); SODIUM 136 mmol/L (136-145); TOTAL PROTEIN 6.5 g/dL (6.4-8.2); eGFR NON BLACK RACES > 60 (>60)
[2019-12-02] MEDS: SOLU-Medrol 125 MG VIAL IVP SCH ×3 (05:44→21:26)
[2019-12-02] MEDS: ASCORBIC ACID INJ MULTI-DOSE VIAL 1,500 MG in NS 100 ML IV 100 ML IV SCH ×4 (05:44→21:25)
[2019-12-02] MEDS: ZOSYN VIAL 3.375 GRAMS 3.375 G in NS 100 ML IV + SPIKE MINIBAG* 100 ML IV SCH ×3 (05:44→22:03)
[2019-12-02] MEDS: NS 1000 ML 1,000 ML IV SCH (05:44)
[2019-12-02] MEDS: MAG-OX TAB PO SCH ×2 (06:06→16:42)
[2019-12-02] MEDS: K-DUR TAB 20 MEQ PO PRN (06:07)
[2019-12-02 06:12] LABS: PLATELET MORPHOLOGY COMMENT NORMAL (NORMAL)
[2019-12-02] MEDS ORDERED: ZESTRIL TAB 20 MG ONE (07:35)
[2019-12-02] MEDS: FLONASE NASAL SPRAY ENOSTRIL SCH ×2 (08:17→21:00)
[2019-12-02] MEDS: LANTUS SC SCH (08:18)
[2019-12-02] MEDS: PEPCID 20 MG IV PREMIX* 20 MG/50 ML BAG IV SCH (08:18)
[2019-12-02] MEDS: ROBITUSSIN DM PO SCH ×4 (08:19→21:25)
[2019-12-02] MEDS: PROTONIX INJ 40 MG VIAL IVP SCH (08:19)
[2019-12-02] MEDS: TRICOR TAB 160 MG PO SCH (08:19)
[2019-12-02] MEDS: VITAMIN A PO SCH (08:19)
[2019-12-02] MEDS: VITAMIN D3 125 mcg (5,000 UNITS) PO SCH (08:20)
[2019-12-02] MEDS: ZESTRIL TAB 20 MG PO SCH (08:20)
[2019-12-02] MEDS: ZINC SULFATE PO SCH ×2 (08:21→21:25)
[2019-12-02] MEDS: NORCO 5/325 MG TAB PO PRN ×2 (09:19→21:25)
[2019-12-02] MEDS: HumuLIN R SC PRN ×3 (11:24→21:20)
[2019-12-02] MEDS: HEPARIN SODIUM IN D5W 25,000 UNITS/500 ML BAG IV PRN (18:45)
[2019-12-02] MEDS: ATIVAN INJ 2 MG VIAL IVP PRN (21:24)
[2019-12-02] MEDS: COLACE CAP 100 MG PO SCH (21:25)
[2019-12-02] MEDS: MIRALAX POWDER (1 DOSE 17 G) PO PRN (21:30)
[2019-12-02] MEDS: SNACK - Diabetic Appropriate PO SCH (22:17)
[2019-12-02] MEDS: ZITHROMAX INJ 500 MG VIAL 500 MG in NS 250 ML IV 250 ML IV SCH (23:03)
[2019-12-03] MEDS: DUONEB 0.5 MG/3 MG (3 mL) NEB SCH ×6 (00:22→20:10)
[2019-12-03] MEDS: ASCORBIC ACID INJ MULTI-DOSE VIAL 1,500 MG in NS 100 ML IV 100 ML IV SCH ×4 (05:40→23:00)
[2019-12-03] MEDS: NS 1000 ML 1,000 ML IV SCH (05:42)
[2019-12-03] MEDS: MAG-OX TAB PO SCH ×2 (06:08→17:09)
[2019-12-03] MEDS: SOLU-Medrol 125 MG VIAL IVP SCH ×3 (06:08→21:05)
[2019-12-03] MEDS: ZOSYN VIAL 3.375 GRAMS 3.375 G in NS 100 ML IV + SPIKE MINIBAG* 100 ML IV SCH ×3 (06:08→21:05)
[2019-12-03] MEDS: HumuLIN R SC PRN ×4 (06:26→20:24)
[2019-12-03 06:27] LABS: BASOPHILS % (AUTO) 0.2 % (0.2-1.0); EOSINOPHILS % (AUTO) 0.3 % (0.9-2.9); HEMATOCRIT 31.4 % (36.0-47.0); HEMOGLOBIN 10.7 g/dL (12.0-16.0); LYMPHOCYTES # (AUTO) 0.4 X10^3/uL (1.3-2.9); MEAN CORPUSCULAR HEMOGLOBIN 29.2 pg (27.0-34.0); MEAN CORPUSCULAR HGB CONC 34.2 g/dL (33.0-35.0); MEAN CORPUSCULAR VOLUME 85.5 fL (80.0-100.0); MEAN PLATELET VOLUME 7.4 fL (7.4-11.0); MONOCYTES # (AUTO) 0.2 x10^3/uL (0.3-0.8); MONOCYTES % (AUTO) 2.9 % (0.0-13.0); NEUTROPHILS # (AUTO) 6.1 x10^3/uL (2.2-4.8); NEUTROPHILS % (AUTO) 90.6 % (42.0-75.0); PLATELET COUNT 412 X10^3/uL (150.0-450.0); RED BLOOD COUNT 3.67 X10^6/uL (3.5-5.4); RED CELL DISTRIBUTION WIDTH 13.5 % (11.6-16.5); WHITE BLOOD COUNT 6.8 X10^3/uL (3.6-10.0)
[2019-12-03 06:34] LABS: ALANINE AMINOTRANSFERASE 30 Units/L (12-78); ALBUMIN 2.6 g/dL (3.4-5.0); ALKALINE PHOSPHATASE 103 Units/L (46-116); ASPARTATE AMINO TRANSFERASE 15 Units/L (15-37); BLOOD UREA NITROGEN 16 mg/dL (7-18); CALCIUM 8.6 mg/dL (8.5-10.1); CARBON DIOXIDE 28.8 mmol/L (21-32); CHLORIDE 103 mmol/L (98-107); COR CA(FOR HYPOALB) 9.7 mg/dL (8.5-10.1); COR NA(FOR HYPERGLY) 142 mmol/L (136-145); CREATININE 0.86 mg/dL (0.55-1.02); SODIUM 139 mmol/L (136-145); TOTAL PROTEIN 6.9 g/dL (6.4-8.2); eGFR NON BLACK RACES > 60 (>60)
[2019-12-03 07:28] LABS: PLATELET MORPHOLOGY COMMENT NORMAL (NORMAL)
[2019-12-03] MEDS ORDERED: ZESTRIL TAB 20 MG ONE (08:26)
[2019-12-03 09:25] LABS: ABG BASE EXCESS 7.4 mmol/L (-2.0-2.0)
[2019-12-03] MEDS: PEPCID 20 MG IV PREMIX* 20 MG/50 ML BAG IV SCH (10:12)
[2019-12-03] MEDS: FLONASE NASAL SPRAY ENOSTRIL SCH ×2 (10:12→20:22)
[2019-12-03] MEDS: PROTONIX INJ 40 MG VIAL IVP SCH (10:12)
[2019-12-03] MEDS: ZINC SULFATE PO SCH ×2 (10:13→20:22)
[2019-12-03] MEDS: TRICOR TAB 160 MG PO SCH (10:13)
[2019-12-03] MEDS: VITAMIN A PO SCH (10:13)
[2019-12-03] MEDS: ROBITUSSIN DM PO SCH ×4 (10:13→20:23)
[2019-12-03] MEDS: VITAMIN D3 125 mcg (5,000 UNITS) PO SCH (10:14)
[2019-12-03] MEDS: ZESTRIL TAB 20 MG PO SCH (10:14)
[2019-12-03] MEDS: LANTUS SC SCH (10:15)
[2019-12-03] MEDS: HEPARIN SODIUM IN D5W 25,000 UNITS/500 ML BAG IV PRN (14:50)
[2019-12-03] MEDS: SNACK - Diabetic Appropriate PO SCH (20:22)
[2019-12-03] MEDS: COLACE CAP 100 MG PO SCH (20:22)
[2019-12-03] MEDS: NORCO 5/325 MG TAB PO PRN (20:23)
[2019-12-03] MEDS: ZITHROMAX INJ 500 MG VIAL 500 MG in NS 250 ML IV 250 ML IV SCH (21:04)
[2019-12-04] MEDS: DUONEB 0.5 MG/3 MG (3 mL) NEB SCH ×5 (00:20→20:55)
[2019-12-04] MEDS: ASCORBIC ACID INJ MULTI-DOSE VIAL 1,500 MG in NS 100 ML IV 100 ML IV SCH ×4 (05:00→22:18)
[2019-12-04] MEDS: NS 1000 ML 1,000 ML IV SCH (05:00)
[2019-12-04] MEDS: SOLU-Medrol 125 MG VIAL IVP SCH ×3 (05:00→20:59)
[2019-12-04] MEDS: ZOSYN VIAL 3.375 GRAMS 3.375 G in NS 100 ML IV + SPIKE MINIBAG* 100 ML IV SCH ×3 (05:01→21:00)
[2019-12-04 05:27] LABS: BASOPHILS % (AUTO) 0.3 % (0.2-1.0); EOSINOPHILS % (AUTO) 0.6 % (0.9-2.9); HEMATOCRIT 31.8 % (36.0-47.0); HEMOGLOBIN 10.7 g/dL (12.0-16.0); LYMPHOCYTES # (AUTO) 0.9 X10^3/uL (1.3-2.9); LYMPHOCYTES % (AUTO) 12.2 % (21.0-51.0); MEAN CORPUSCULAR HEMOGLOBIN 29.2 pg (27.0-34.0); MEAN CORPUSCULAR HGB CONC 33.6 g/dL (33.0-35.0); MEAN CORPUSCULAR VOLUME 86.8 fL (80.0-100.0); MEAN PLATELET VOLUME 7.8 fL (7.4-11.0); MONOCYTES # (AUTO) 0.3 x10^3/uL (0.3-0.8); MONOCYTES % (AUTO) 4.2 % (0.0-13.0); NEUTROPHILS # (AUTO) 5.8 x10^3/uL (2.2-4.8); NEUTROPHILS % (AUTO) 82.7 % (42.0-75.0); PLATELET COUNT 363 X10^3/uL (150.0-450.0); RED BLOOD COUNT 3.67 X10^6/uL (3.5-5.4); RED CELL DISTRIBUTION WIDTH 14.1 % (11.6-16.5)
[2019-12-04] MEDS: NORCO 5/325 MG TAB PO PRN ×3 (05:31→21:20)
[2019-12-04 05:39] LABS: ALANINE AMINOTRANSFERASE 27 Units/L (12-78); ALBUMIN 2.6 g/dL (3.4-5.0); ALKALINE PHOSPHATASE 90 Units/L (46-116); ASPARTATE AMINO TRANSFERASE 20 Units/L (15-37); BLOOD UREA NITROGEN 12 mg/dL (7-18); CALCIUM 8.5 mg/dL (8.5-10.1); CARBON DIOXIDE 30.7 mmol/L (21-32); CHLORIDE 104 mmol/L (98-107); COR CA(FOR HYPOALB) 9.6 mg/dL (8.5-10.1); COR NA(FOR HYPERGLY) 142 mmol/L (136-145); CREATININE 0.74 mg/dL (0.55-1.02); SODIUM 141 mmol/L (136-145); TOTAL PROTEIN 6.8 g/dL (6.4-8.2); eGFR NON BLACK RACES > 60 (>60)
[2019-12-04] MEDS: MAG-OX TAB PO SCH ×2 (06:34→16:57)
[2019-12-04] MEDS: BENADRYL INJ 50 MG VIAL ONE ×2 (06:50→18:50)
--- NOTE | 2019-12-04 06:52 | RAD ---
HISTORYPNEUMONIASTUDYCHEST, 1 [id number]/20/2020TECHNIQUEAP view of the chestFINDINGSCardiac silhouette is stably enlarged. Stable bilateral airspace disease. No pleural effusion or pneumothorax. Soft tissue attenuation limits evaluation.IMPRESSIONNo significant change.Electronically signed by: Jigar Calvillo (Dec 04, 2019 06:51:30)
[2019-12-04] MEDS ORDERED: ZESTRIL TAB 20 MG ONE (07:17)
[2019-12-04] MEDS ORDERED: HEPARIN SODIUM INJ 5000 UNITS ONE (08:23)
[2019-12-04] MEDS: FLONASE NASAL SPRAY ENOSTRIL SCH ×2 (09:08→20:07)
[2019-12-04] MEDS: LANTUS SC SCH (09:08)
[2019-12-04] MEDS: PEPCID 20 MG IV PREMIX* 20 MG/50 ML BAG IV SCH (09:09)
[2019-12-04] MEDS: ROBITUSSIN DM PO SCH ×4 (09:09→20:08)
[2019-12-04] MEDS: PROTONIX INJ 40 MG VIAL IVP SCH (09:09)
[2019-12-04] MEDS: TRICOR TAB 160 MG PO SCH (09:09)
[2019-12-04] MEDS: VITAMIN D3 125 mcg (5,000 UNITS) PO SCH (09:10)
[2019-12-04] MEDS: VITAMIN A PO SCH (09:10)
[2019-12-04] MEDS: ZESTRIL TAB 20 MG PO SCH (09:10)
[2019-12-04] MEDS: ZINC SULFATE PO SCH ×2 (09:10→20:08)
[2019-12-04] MEDS ORDERED: NS 500 ML IV 500 ML IV ONE (17:48)
[2019-12-04] MEDS: TYLENOL 325 MG TAB PO PRN (18:50)
[2019-12-04] MEDS: SNACK - Diabetic Appropriate PO SCH (20:06)
[2019-12-04] MEDS: COLACE CAP 100 MG PO SCH (20:07)
[2019-12-04] MEDS: HumuLIN R SC PRN (20:09)
[2019-12-04] MEDS: ZITHROMAX INJ 500 MG VIAL 500 MG in NS 250 ML IV 250 ML IV SCH (20:59)
[2019-12-04] MEDS: K-DUR TAB 20 MEQ PO PRN (22:19)
[2019-12-05] MEDS: DUONEB 0.5 MG/3 MG (3 mL) NEB SCH ×6 (01:00→21:30)
[2019-12-05] MEDS: HEPARIN SODIUM IN D5W 25,000 UNITS/500 ML BAG IV PRN ×3 (03:21→22:06)
[2019-12-05 04:11] LABS: BASOPHILS % (AUTO) 0.2 % (0.2-1.0); EOSINOPHILS # (AUTO) 0.1 x10^3/uL (0.0-0.2); EOSINOPHILS % (AUTO) 1.3 % (0.9-2.9); HEMATOCRIT 29.2 % (36.0-47.0); HEMOGLOBIN 10.2 g/dL (12.0-16.0); LYMPHOCYTES # (AUTO) 1.5 X10^3/uL (1.3-2.9); MEAN CORPUSCULAR HEMOGLOBIN 29.9 pg (27.0-34.0); MEAN CORPUSCULAR HGB CONC 34.9 g/dL (33.0-35.0); MEAN CORPUSCULAR VOLUME 85.8 fL (80.0-100.0); MEAN PLATELET VOLUME 7.3 fL (7.4-11.0); MONOCYTES # (AUTO) 0.3 x10^3/uL (0.3-0.8); MONOCYTES % (AUTO) 3.7 % (0.0-13.0); NEUTROPHILS # (AUTO) 6.8 x10^3/uL (2.2-4.8); NEUTROPHILS % (AUTO) 77.8 % (42.0-75.0); PLATELET COUNT 388 X10^3/uL (150.0-450.0); RED CELL DISTRIBUTION WIDTH 14.2 % (11.6-16.5); WHITE BLOOD COUNT 8.7 X10^3/uL (3.6-10.0)
[2019-12-05 04:17] LABS: ALANINE AMINOTRANSFERASE 29 Units/L (12-78); ALBUMIN 2.4 g/dL (3.4-5.0); ALKALINE PHOSPHATASE 84 Units/L (46-116); ASPARTATE AMINO TRANSFERASE 21 Units/L (15-37); BLOOD UREA NITROGEN 11 mg/dL (7-18); CALCIUM 8.2 mg/dL (8.5-10.1); CARBON DIOXIDE 31.9 mmol/L (21-32); CHLORIDE 105 mmol/L (98-107); COR CA(FOR HYPOALB) 9.5 mg/dL (8.5-10.1); COR NA(FOR HYPERGLY) 144 mmol/L (136-145); CREATININE 0.84 mg/dL (0.55-1.02); MAGNESIUM 1.7 mg/dL (1.7-2.9); SODIUM 143 mmol/L (136-145); TOTAL PROTEIN 6.4 g/dL (6.4-8.2); eGFR NON BLACK RACES > 60 (>60)
[2019-12-05] MEDS: ASCORBIC ACID INJ MULTI-DOSE VIAL 1,500 MG in NS 100 ML IV 100 ML IV SCH ×4 (04:17→22:06)
[2019-12-05] MEDS: NS 1000 ML 1,000 ML IV SCH (04:17)
[2019-12-05] MEDS: SOLU-Medrol 125 MG VIAL IVP SCH ×3 (05:00→21:18)
[2019-12-05] MEDS: ZOSYN VIAL 3.375 GRAMS 3.375 G in NS 100 ML IV + SPIKE MINIBAG* 100 ML IV SCH (05:01)
[2019-12-05] MEDS: NORCO 5/325 MG TAB PO PRN ×3 (05:35→22:09)
[2019-12-05] MEDS: MAG-OX TAB PO SCH ×2 (06:29→16:46)
[2019-12-05] MEDS ORDERED: ZESTRIL TAB 20 MG ONE (08:22)
[2019-12-05] MEDS: ZESTRIL TAB 20 MG PO SCH (09:17)
[2019-12-05] MEDS: FLONASE NASAL SPRAY ENOSTRIL SCH ×2 (09:17→20:27)
[2019-12-05] MEDS: LANTUS SC SCH (09:18)
[2019-12-05] MEDS: PEPCID 20 MG IV PREMIX* 20 MG/50 ML BAG IV SCH (09:18)
[2019-12-05] MEDS: PROTONIX INJ 40 MG VIAL IVP SCH (09:18)
[2019-12-05] MEDS: VITAMIN A PO SCH (09:19)
[2019-12-05] MEDS: ROBITUSSIN DM PO SCH ×4 (09:19→20:28)
[2019-12-05] MEDS: TRICOR TAB 160 MG PO SCH (09:19)
[2019-12-05] MEDS: VITAMIN D3 125 mcg (5,000 UNITS) PO SCH (09:19)
[2019-12-05] MEDS: ZINC SULFATE PO SCH ×2 (09:20→20:28)
[2019-12-05 10:11] LABS: ABG BASE EXCESS 5.9 mmol/L (-2.0-2.0); ABG HCO3 29.7 mmol/L (22-26)
[2019-12-05 10:13] LABS: ABG ALLEN TEST POS
[2019-12-05] MEDS: HumuLIN R SC PRN ×2 (16:45→20:29)
[2019-12-05] MEDS: SNACK - Diabetic Appropriate PO SCH (20:26)
[2019-12-05] MEDS: COLACE CAP 100 MG PO SCH (20:27)
[2019-12-05] MEDS: ULTRAM PO PRN (20:28)
[2019-12-05] MEDS: ZITHROMAX INJ 500 MG VIAL 500 MG in NS 250 ML IV 250 ML IV SCH (21:18)
[2019-12-06] MEDS: DUONEB 0.5 MG/3 MG (3 mL) NEB SCH ×6 (01:10→21:35)
[2019-12-06] MEDS: NS 1000 ML 1,000 ML IV SCH (04:25)
[2019-12-06] MEDS: ASCORBIC ACID INJ MULTI-DOSE VIAL 1,500 MG in NS 100 ML IV 100 ML IV SCH ×4 (04:25→23:20)
--- NOTE | 2019-12-06 04:57 | RAD ---
HISTORYpneumonia, covid-19STUDYCHEST, 1 [id number]/24/2020FINDINGSThe trachea is midline. The cardiac silhouette is enlarged. Bilateral perihilar as well as middle and lower lung zone airspace opacities, more confluent/consolidated at the right lung base compared to prior exam.. The bony thorax is stable.IMPRESSIONWorsening airspace opacity/infiltrates at the right lung base.Electronically signed by: Gypsy Acevedo (Dec 06, 2019 04:56:45)
[2019-12-06 05:09] LABS: BASOPHILS % (AUTO) 0.3 % (0.2-1.0); EOSINOPHILS % (AUTO) 0.3 % (0.9-2.9); HEMATOCRIT 30.6 % (36.0-47.0); HEMOGLOBIN 10.6 g/dL (12.0-16.0); LYMPHOCYTES # (AUTO) 1.1 X10^3/uL (1.3-2.9); LYMPHOCYTES % (AUTO) 10.2 % (21.0-51.0); MEAN CORPUSCULAR HEMOGLOBIN 30.2 pg (27.0-34.0); MEAN CORPUSCULAR HGB CONC 34.8 g/dL (33.0-35.0); MEAN CORPUSCULAR VOLUME 86.8 fL (80.0-100.0); MEAN PLATELET VOLUME 7.5 fL (7.4-11.0); MONOCYTES # (AUTO) 0.3 x10^3/uL (0.3-0.8); NEUTROPHILS # (AUTO) 9.1 x10^3/uL (2.2-4.8); NEUTROPHILS % (AUTO) 86.2 % (42.0-75.0); PLATELET COUNT 406 X10^3/uL (150.0-450.0); RED BLOOD COUNT 3.53 X10^6/uL (3.5-5.4); WHITE BLOOD COUNT 10.5 X10^3/uL (3.6-10.0)
[2019-12-06 05:23] LABS: ALANINE AMINOTRANSFERASE 29 Units/L (12-78); ALBUMIN 2.6 g/dL (3.4-5.0); ALKALINE PHOSPHATASE 86 Units/L (46-116); ASPARTATE AMINO TRANSFERASE 20 Units/L (15-37); BLOOD UREA NITROGEN 12 mg/dL (7-18); CALCIUM 8.8 mg/dL (8.5-10.1); CARBON DIOXIDE 29.8 mmol/L (21-32); CHLORIDE 102 mmol/L (98-107); COR CA(FOR HYPOALB) 9.9 mg/dL (8.5-10.1); COR NA(FOR HYPERGLY) 141 mmol/L (136-145); SODIUM 138 mmol/L (136-145); TOTAL PROTEIN 7.1 g/dL (6.4-8.2); eGFR NON BLACK RACES > 60 (>60)
[2019-12-06 05:32] LABS: PLATELET MORPHOLOGY COMMENT NORMAL (NORMAL)
[2019-12-06] MEDS: SOLU-Medrol 125 MG VIAL IVP SCH ×3 (05:36→21:42)
[2019-12-06] MEDS: ULTRAM PO PRN ×2 (05:45→20:25)
[2019-12-06] MEDS: MAG-OX TAB PO SCH ×2 (06:06→17:30)
[2019-12-06] MEDS ORDERED: ZESTRIL TAB 20 MG ONE (07:28)
[2019-12-06] MEDS: PEPCID 20 MG IV PREMIX* 20 MG/50 ML BAG IV SCH (08:18)
[2019-12-06] MEDS: FLONASE NASAL SPRAY ENOSTRIL SCH ×2 (08:33→20:22)
[2019-12-06] MEDS: LANTUS SC SCH (09:22)
[2019-12-06] MEDS: TRICOR TAB 160 MG PO SCH (09:23)
[2019-12-06] MEDS: PROTONIX INJ 40 MG VIAL IVP SCH (09:23)
[2019-12-06] MEDS: ROBITUSSIN DM PO SCH ×4 (09:23→20:25)
[2019-12-06] MEDS: VITAMIN D3 125 mcg (5,000 UNITS) PO SCH (09:24)
[2019-12-06] MEDS: ZESTRIL TAB 20 MG PO SCH (09:24)
[2019-12-06] MEDS: VITAMIN A PO SCH (09:24)
[2019-12-06] MEDS: ZINC SULFATE PO SCH ×2 (09:25→20:24)
[2019-12-06] MEDS: HumuLIN R SC PRN ×3 (12:13→20:27)
[2019-12-06] MEDS: HEPARIN SODIUM IN D5W 25,000 UNITS/500 ML BAG IV PRN (16:00)
[2019-12-06] MEDS: NORCO 5/325 MG TAB PO PRN (16:00)
[2019-12-06] MEDS: COLACE CAP 100 MG PO SCH (20:22)
[2019-12-06] MEDS: SNACK - Diabetic Appropriate PO SCH (20:22)
[2019-12-06] MEDS: ZITHROMAX INJ 500 MG VIAL 500 MG in NS 250 ML IV 250 ML IV SCH (21:42)
[2019-12-07] MEDS: DUONEB 0.5 MG/3 MG (3 mL) NEB SCH ×5 (01:15→16:39)
[2019-12-07] MEDS: ASCORBIC ACID INJ MULTI-DOSE VIAL 1,500 MG in NS 100 ML IV 100 ML IV SCH ×4 (04:02→23:00)
[2019-12-07] MEDS: NS 1000 ML 1,000 ML IV SCH (04:02)
[2019-12-07] MEDS: NORCO 5/325 MG TAB PO PRN ×3 (04:03→22:25)
[2019-12-07] MEDS: SOLU-Medrol 125 MG VIAL IVP SCH ×3 (05:43→21:19)
[2019-12-07 05:44] LABS: BASOPHILS # (AUTO) 0.1 X10^3/uL (0.0-0.1); BASOPHILS % (AUTO) 1.1 % (0.2-1.0); EOSINOPHILS # (AUTO) 0.1 x10^3/uL (0.0-0.2); HEMATOCRIT 30.2 % (36.0-47.0); HEMOGLOBIN 10.4 g/dL (12.0-16.0); LYMPHOCYTES # (AUTO) 2.1 X10^3/uL (1.3-2.9); LYMPHOCYTES % (AUTO) 18.5 % (21.0-51.0); MEAN CORPUSCULAR HEMOGLOBIN 29.7 pg (27.0-34.0); MEAN CORPUSCULAR HGB CONC 34.5 g/dL (33.0-35.0); MEAN CORPUSCULAR VOLUME 86.3 fL (80.0-100.0); MONOCYTES # (AUTO) 0.5 x10^3/uL (0.3-0.8); MONOCYTES % (AUTO) 4.3 % (0.0-13.0); NEUTROPHILS # (AUTO) 8.6 x10^3/uL (2.2-4.8); NEUTROPHILS % (AUTO) 75.1 % (42.0-75.0); PLATELET COUNT 402 X10^3/uL (150.0-450.0); RED CELL DISTRIBUTION WIDTH 13.9 % (11.6-16.5); WHITE BLOOD COUNT 11.4 X10^3/uL (3.6-10.0)
[2019-12-07 06:02] LABS: ALANINE AMINOTRANSFERASE 26 Units/L (12-78); ALBUMIN 2.4 g/dL (3.4-5.0); ALKALINE PHOSPHATASE 86 Units/L (46-116); ASPARTATE AMINO TRANSFERASE 19 Units/L (15-37); BLOOD UREA NITROGEN 12 mg/dL (7-18); CALCIUM 8.7 mg/dL (8.5-10.1); CARBON DIOXIDE 31.9 mmol/L (21-32); CHLORIDE 103 mmol/L (98-107); COR NA(FOR HYPERGLY) 143 mmol/L (136-145); SODIUM 142 mmol/L (136-145); eGFR NON BLACK RACES > 60 (>60)
[2019-12-07 06:18] LABS: ABG BASE EXCESS 8.4 mmol/L (-2.0-2.0)
[2019-12-07] MEDS: MAG-OX TAB PO SCH ×2 (06:18→16:48)
[2019-12-07 06:20] LABS: ABG ALLEN TEST POS; ABG HCO3 33.4 mmol/L (22-26)
[2019-12-07] MEDS: HEPARIN SODIUM IN D5W 25,000 UNITS/500 ML BAG IV PRN (08:31)
[2019-12-07] MEDS ORDERED: ZESTRIL TAB 20 MG ONE (08:43)
[2019-12-07] MEDS: FLONASE NASAL SPRAY ENOSTRIL SCH ×2 (08:54→20:25)
[2019-12-07] MEDS: PROTONIX INJ 40 MG VIAL IVP SCH (08:55)
[2019-12-07] MEDS: PEPCID 20 MG IV PREMIX* 20 MG/50 ML BAG IV SCH (08:55)
[2019-12-07] MEDS: TRICOR TAB 160 MG PO SCH (08:57)
[2019-12-07] MEDS: ZINC SULFATE PO SCH ×2 (08:57→20:25)
[2019-12-07] MEDS: VITAMIN D3 125 mcg (5,000 UNITS) PO SCH (08:57)
[2019-12-07] MEDS: ROBITUSSIN DM PO SCH ×4 (08:57→20:24)
[2019-12-07] MEDS: ZESTRIL TAB 20 MG PO SCH (08:58)
[2019-12-07] MEDS ORDERED: HEPARIN SODIUM IN D5W 25,000 UNITS/500 ML BAG IV ONE (08:59)
[2019-12-07] MEDS: VITAMIN A PO SCH (09:01)
[2019-12-07] MEDS: LANTUS SC SCH (09:02)
[2019-12-07] MEDS ORDERED: HEPARIN SODIUM INJ 5000 UNITS IVP ONE (15:29)
[2019-12-07] MEDS ORDERED: HEPARIN SODIUM INJ 5000 UNITS ONE (15:39)
[2019-12-07] MEDS ORDERED: LOPRESSOR INJ 5 MG AMP IVP ONE (18:32)
[2019-12-07] MEDS ORDERED: CATAPRES TAB 0.1 MG PO PRN (18:34)
[2019-12-07] MEDS: ULTRAM PO PRN (19:04)
[2019-12-07] MEDS: SNACK - Diabetic Appropriate PO SCH (20:24)
[2019-12-07] MEDS: COLACE CAP 100 MG PO SCH (20:24)
[2019-12-07] MEDS: ZITHROMAX INJ 500 MG VIAL 500 MG in NS 250 ML IV 250 ML IV SCH (21:19)
[2019-12-07] MEDS: HumuLIN R SC PRN (21:20)
[2019-12-08] MEDS: XOPENEX 1.25 MG/3 ML NEBULE NEB SCH ×5 (00:26→19:17)
[2019-12-08] MEDS: HEPARIN SODIUM IN D5W 25,000 UNITS/500 ML BAG IV PRN ×2 (01:19→16:23)
[2019-12-08] MEDS: ULTRAM PO PRN ×2 (03:33→21:05)
[2019-12-08] MEDS: ASCORBIC ACID INJ MULTI-DOSE VIAL 1,500 MG in NS 100 ML IV 100 ML IV SCH ×4 (05:15→23:22)
[2019-12-08] MEDS: SOLU-Medrol 125 MG VIAL IVP SCH (05:16)
[2019-12-08] MEDS: NS 1000 ML 1,000 ML IV SCH (05:16)
--- NOTE | 2019-12-08 05:35 | RAD ---
HISTORYPNEUMONIASTUDYCHEST, 1 [id number]/16/2020FINDINGSThe trachea is midline. The cardiac silhouette is grossly stable. Bilateral airspace opacities/infiltrates, unchanged compared to prior exam. No pneumothorax. The bony thorax is stable.IMPRESSIONNo significant interval change.Electronically signed by: Gypsy Acevedo (Dec 08, 2019 05:34:21)
[2019-12-08 05:46] LABS: ABG BASE EXCESS 5.9 mmol/L (-2.0-2.0)
[2019-12-08 05:47] LABS: ABG HCO3 31.2 mmol/L (22-26)
[2019-12-08 05:48] LABS: ABG ALLEN TEST POS
[2019-12-08 05:53] LABS: BASOPHILS % (AUTO) 0.2 % (0.2-1.0); EOSINOPHILS % (AUTO) 0.3 % (0.9-2.9); HEMOGLOBIN 10.4 g/dL (12.0-16.0); LYMPHOCYTES # (AUTO) 1.1 X10^3/uL (1.3-2.9); LYMPHOCYTES % (AUTO) 8.1 % (21.0-51.0); MEAN CORPUSCULAR HEMOGLOBIN 29.6 pg (27.0-34.0); MEAN CORPUSCULAR HGB CONC 33.6 g/dL (33.0-35.0); MEAN PLATELET VOLUME 8.7 fL (7.4-11.0); MONOCYTES # (AUTO) 0.5 x10^3/uL (0.3-0.8); MONOCYTES % (AUTO) 3.3 % (0.0-13.0); NEUTROPHILS # (AUTO) 12.4 x10^3/uL (2.2-4.8); NEUTROPHILS % (AUTO) 88.1 % (42.0-75.0); PLATELET COUNT 442 X10^3/uL (150.0-450.0); RED BLOOD COUNT 3.52 X10^6/uL (3.5-5.4); RED CELL DISTRIBUTION WIDTH 14.2 % (11.6-16.5)
[2019-12-08 05:56] LABS: ALANINE AMINOTRANSFERASE 35 Units/L (12-78); ALBUMIN 2.5 g/dL (3.4-5.0); ALKALINE PHOSPHATASE 117 Units/L (46-116); ASPARTATE AMINO TRANSFERASE 27 Units/L (15-37); BLOOD UREA NITROGEN 13 mg/dL (7-18); CALCIUM 8.9 mg/dL (8.5-10.1); CARBON DIOXIDE 29.1 mmol/L (21-32); CHLORIDE 101 mmol/L (98-107); COR CA(FOR HYPOALB) 10.1 mg/dL (8.5-10.1); COR NA(FOR HYPERGLY) 141 mmol/L (136-145); CREATININE 0.87 mg/dL (0.55-1.02); SODIUM 137 mmol/L (136-145); TOTAL PROTEIN 7.3 g/dL (6.4-8.2); eGFR NON BLACK RACES > 60 (>60)
[2019-12-08] MEDS: MAG-OX TAB PO SCH ×2 (06:17→16:45)
[2019-12-08] MEDS: HumuLIN R SC PRN ×3 (06:19→16:44)
[2019-12-08] MEDS ORDERED: ZESTRIL TAB 20 MG ONE (07:54)
[2019-12-08] MEDS: LANTUS SC SCH (08:40)
[2019-12-08] MEDS: PEPCID 20 MG IV PREMIX* 20 MG/50 ML BAG IV SCH (08:41)
[2019-12-08] MEDS: PROTONIX INJ 40 MG VIAL IVP SCH (08:42)
[2019-12-08] MEDS: ROBITUSSIN DM PO SCH ×4 (08:43→20:58)
[2019-12-08] MEDS: TRICOR TAB 160 MG PO SCH (08:45)
[2019-12-08] MEDS: VITAMIN D3 125 mcg (5,000 UNITS) PO SCH (08:46)
[2019-12-08] MEDS: ZESTRIL TAB 20 MG PO SCH (08:47)
[2019-12-08] MEDS: SOLU-Medrol 40 MG VIAL IVP SCH ×2 (08:50→20:58)
[2019-12-08] MEDS: VITAMIN A PO SCH (09:00)
[2019-12-08] MEDS: FLONASE NASAL SPRAY ENOSTRIL SCH ×2 (10:00→20:58)
[2019-12-08] MEDS: ZINC SULFATE PO SCH ×2 (10:00→20:58)
[2019-12-08] MEDS: NORCO 5/325 MG TAB PO PRN ×2 (15:14→23:23)
[2019-12-08] MEDS: SNACK - Diabetic Appropriate PO SCH (20:53)
[2019-12-08] MEDS: COLACE CAP 100 MG PO SCH (20:57)
[2019-12-08] MEDS: ZITHROMAX INJ 500 MG VIAL 500 MG in NS 250 ML IV 250 ML IV SCH (21:57)
[2019-12-08] MEDS ORDERED: LOPRESSOR INJ 5 MG AMP IVP ONE (22:13)
[2019-12-08] MEDS ORDERED: LOPRESSOR INJ 5 MG AMP ONE (22:17)
[2019-12-08 22:58] LABS: CKMB % 3.2 % (<4); CREATINE KINASE 44 Units/L (26-192); CREATINE KINASE MB 1.4 ng/mL (0-4.0); TROPONIN I < 0.02 ng/mL (0-1.5)
[2019-12-09] MEDS: XOPENEX 1.25 MG/3 ML NEBULE NEB SCH ×4 (00:25→17:05)
[2019-12-09] MEDS: ASCORBIC ACID INJ MULTI-DOSE VIAL 1,500 MG in NS 100 ML IV 100 ML IV SCH ×4 (05:12→23:11)
[2019-12-09] MEDS: NS 1000 ML 1,000 ML IV SCH (05:12)
[2019-12-09 05:41] LABS: BASOPHILS # (AUTO) 0.1 X10^3/uL (0.0-0.1); BASOPHILS % (AUTO) 0.7 % (0.2-1.0); EOSINOPHILS % (AUTO) 0.3 % (0.9-2.9); HEMATOCRIT 32.1 % (36.0-47.0); HEMOGLOBIN 10.9 g/dL (12.0-16.0); LYMPHOCYTES # (AUTO) 1.4 X10^3/uL (1.3-2.9); LYMPHOCYTES % (AUTO) 9.5 % (21.0-51.0); MEAN CORPUSCULAR HEMOGLOBIN 29.5 pg (27.0-34.0); MEAN CORPUSCULAR HGB CONC 33.9 g/dL (33.0-35.0); MEAN CORPUSCULAR VOLUME 87.1 fL (80.0-100.0); MEAN PLATELET VOLUME 8.1 fL (7.4-11.0); MONOCYTES # (AUTO) 0.6 x10^3/uL (0.3-0.8); MONOCYTES % (AUTO) 4.4 % (0.0-13.0); NEUTROPHILS # (AUTO) 12.2 x10^3/uL (2.2-4.8); NEUTROPHILS % (AUTO) 85.1 % (42.0-75.0); PLATELET COUNT 418 X10^3/uL (150.0-450.0); RED BLOOD COUNT 3.68 X10^6/uL (3.5-5.4); RED CELL DISTRIBUTION WIDTH 14.4 % (11.6-16.5); WHITE BLOOD COUNT 14.3 X10^3/uL (3.6-10.0)
[2019-12-09 05:56] LABS: ALANINE AMINOTRANSFERASE 28 Units/L (12-78); ALBUMIN 2.6 g/dL (3.4-5.0); ALKALINE PHOSPHATASE 145 Units/L (46-116); ASPARTATE AMINO TRANSFERASE 24 Units/L (15-37); BLOOD UREA NITROGEN 11 mg/dL (7-18); CALCIUM 9.1 mg/dL (8.5-10.1); CARBON DIOXIDE 28.8 mmol/L (21-32); CHLORIDE 102 mmol/L (98-107); COR CA(FOR HYPOALB) 10.2 mg/dL (8.5-10.1); CREATININE 0.74 mg/dL (0.55-1.02); SODIUM 140 mmol/L (136-145); TOTAL PROTEIN 7.7 g/dL (6.4-8.2); eGFR NON BLACK RACES > 60 (>60)
[2019-12-09] MEDS: MAG-OX TAB PO SCH ×2 (06:14→17:00)
[2019-12-09 06:16] LABS: CKMB % 4.1 % (<4); CREATINE KINASE 32 Units/L (26-192); CREATINE KINASE MB 1.3 ng/mL (0-4.0); TROPONIN I < 0.02 ng/mL (0-1.5)
[2019-12-09] MEDS ORDERED: ZESTRIL TAB 20 MG ONE (07:33)
[2019-12-09] MEDS: LANTUS SC SCH (08:24)
[2019-12-09] MEDS: FLONASE NASAL SPRAY ENOSTRIL SCH ×2 (08:24→21:00)
[2019-12-09] MEDS: PROTONIX INJ 40 MG VIAL IVP SCH (08:26)
[2019-12-09] MEDS: ROBITUSSIN DM PO SCH ×4 (08:29→21:00)
[2019-12-09] MEDS: SOLU-Medrol 40 MG VIAL IVP SCH (08:29)
[2019-12-09] MEDS: VITAMIN D3 125 mcg (5,000 UNITS) PO SCH (08:32)
[2019-12-09] MEDS: ZESTRIL TAB 20 MG PO SCH (08:33)
[2019-12-09] MEDS: TRICOR TAB 160 MG PO SCH (08:33)
[2019-12-09] MEDS: ZINC SULFATE PO SCH ×2 (08:33→21:00)
[2019-12-09] MEDS: PEPCID 20 MG IV PREMIX* 20 MG/50 ML BAG IV SCH (08:34)
[2019-12-09] MEDS: NORCO 5/325 MG TAB PO PRN (08:55)
[2019-12-09] MEDS: VITAMIN A PO SCH (09:00)
[2019-12-09] MEDS ORDERED: LASIX IVP ONE (09:46)
[2019-12-09] MEDS: HEPARIN SODIUM IN D5W 25,000 UNITS/500 ML BAG IV PRN (10:26)
[2019-12-09 10:33] LABS: ABG BASE EXCESS 4.7 mmol/L (-2.0-2.0); ABG HCO3 29.2 mmol/L (22-26)
[2019-12-09 10:49] LABS: CKMB % 3.4 % (<4); CREATINE KINASE 35 Units/L (26-192); CREATINE KINASE MB 1.2 ng/mL (0-4.0); TROPONIN I < 0.02 ng/mL (0-1.5)
[2019-12-09] MEDS: SOLU-Medrol 125 MG VIAL IVP SCH ×3 (11:00→21:00)
--- NOTE | 2019-12-09 11:02 | RAD ---
HISTORYPNEUMONIA.br LUMPECTOMYSTUDYCHEST, 1 [id number]/28/2020FINDINGSDiffuse bilateral opacity in the lungs is present, unchanged from prior study. Findings could be pneumonia and were better appreciated on the CT 11/28/2019.No pneumothorax or significant effusion.The heart size is magnified.Bones are unremarkable.EKG leads are noted.IMPRESSION1. Unchanged pneumoniaElectronically signed by: Jigar Saldaña (Dec 09, 2019 11:02:30)
[2019-12-09] MEDS: HumuLIN R SC PRN ×3 (12:00→21:00)
[2019-12-09] MEDS: SNACK - Diabetic Appropriate PO SCH (21:00)
[2019-12-09] MEDS: COLACE CAP 100 MG PO SCH (21:00)
[2019-12-09] MEDS: ZITHROMAX INJ 500 MG VIAL 500 MG in NS 250 ML IV 250 ML IV SCH (21:00)
[2019-12-10] MEDS: XOPENEX 1.25 MG/3 ML NEBULE NEB SCH ×4 (00:02→17:00)
[2019-12-10] MEDS: HEPARIN SODIUM IN D5W 25,000 UNITS/500 ML BAG IV PRN ×2 (00:54→14:34)
[2019-12-10] MEDS ORDERED: NS 250 ML IV 250 ML IV ONE (02:08)
[2019-12-10] MEDS: NORCO 5/325 MG TAB PO PRN ×2 (04:16→14:34)
[2019-12-10] MEDS: ASCORBIC ACID INJ MULTI-DOSE VIAL 1,500 MG in NS 100 ML IV 100 ML IV SCH ×4 (04:17→22:25)
[2019-12-10] MEDS: SOLU-Medrol 125 MG VIAL IVP SCH ×3 (05:13→21:00)
[2019-12-10] MEDS: NS 1000 ML 1,000 ML IV SCH (05:14)
[2019-12-10] MEDS: HumuLIN R SC PRN ×4 (05:47→20:49)
[2019-12-10] MEDS: MAG-OX TAB PO SCH ×2 (06:12→16:11)
[2019-12-10 06:58] LABS: BASOPHILS % (AUTO) 0.1 % (0.2-1.0); EOSINOPHILS % (AUTO) 0.1 % (0.9-2.9); HEMATOCRIT 33.6 % (36.0-47.0); HEMOGLOBIN 11.2 g/dL (12.0-16.0); LYMPHOCYTES # (AUTO) 1.1 X10^3/uL (1.3-2.9); LYMPHOCYTES % (AUTO) 9.2 % (21.0-51.0); MEAN CORPUSCULAR HEMOGLOBIN 29.1 pg (27.0-34.0); MEAN CORPUSCULAR HGB CONC 33.3 g/dL (33.0-35.0); MEAN CORPUSCULAR VOLUME 87.3 fL (80.0-100.0); MEAN PLATELET VOLUME 8.1 fL (7.4-11.0); MONOCYTES # (AUTO) 0.6 x10^3/uL (0.3-0.8); MONOCYTES % (AUTO) 4.9 % (0.0-13.0); NEUTROPHILS # (AUTO) 10.2 x10^3/uL (2.2-4.8); NEUTROPHILS % (AUTO) 85.7 % (42.0-75.0); PLATELET COUNT 387 X10^3/uL (150.0-450.0); RED BLOOD COUNT 3.85 X10^6/uL (3.5-5.4); RED CELL DISTRIBUTION WIDTH 14.5 % (11.6-16.5); WHITE BLOOD COUNT 11.9 X10^3/uL (3.6-10.0)
[2019-12-10 07:15] LABS: ALANINE AMINOTRANSFERASE 31 Units/L (12-78); ALBUMIN 2.9 g/dL (3.4-5.0); ALKALINE PHOSPHATASE 150 Units/L (46-116); ASPARTATE AMINO TRANSFERASE 23 Units/L (15-37); BLOOD UREA NITROGEN 16 mg/dL (7-18); CALCIUM 9.8 mg/dL (8.5-10.1); CARBON DIOXIDE 30.1 mmol/L (21-32); CHLORIDE 100 mmol/L (98-107); COR CA(FOR HYPOALB) 10.7 mg/dL (8.5-10.1); COR NA(FOR HYPERGLY) 142 mmol/L (136-145); CREATININE 0.83 mg/dL (0.55-1.02); SODIUM 139 mmol/L (136-145); TOTAL PROTEIN 8.5 g/dL (6.4-8.2); eGFR NON BLACK RACES > 60 (>60)
[2019-12-10 07:35] LABS: PLATELET MORPHOLOGY COMMENT NORMAL (NORMAL)
[2019-12-10] MEDS ORDERED: ZESTRIL TAB 20 MG ONE (09:05)
[2019-12-10 09:08] LABS: ABG BASE EXCESS 9.3 mmol/L (-2.0-2.0)
[2019-12-10 09:09] LABS: ABG HCO3 34.8 mmol/L (22-26); FRACTIONATED INSPIRED OXYGEN 92
[2019-12-10] MEDS: FLONASE NASAL SPRAY ENOSTRIL SCH ×2 (09:09→20:47)
[2019-12-10] MEDS: PEPCID 20 MG IV PREMIX* 20 MG/50 ML BAG IV SCH (09:10)
[2019-12-10] MEDS: LANTUS SC SCH (09:10)
[2019-12-10] MEDS: PROTONIX INJ 40 MG VIAL IVP SCH (09:11)
[2019-12-10] MEDS: TRICOR TAB 160 MG PO SCH (09:11)
[2019-12-10] MEDS: VITAMIN A PO SCH (09:11)
[2019-12-10] MEDS: ROBITUSSIN DM PO SCH ×4 (09:11→20:47)
[2019-12-10] MEDS: ZESTRIL TAB 20 MG PO SCH (09:12)
[2019-12-10] MEDS: ZINC SULFATE PO SCH ×2 (09:12→20:47)
[2019-12-10] MEDS: VITAMIN D3 125 mcg (5,000 UNITS) PO SCH (09:12)
[2019-12-10] MEDS: SNACK - Diabetic Appropriate PO SCH (20:46)
[2019-12-10] MEDS: COLACE CAP 100 MG PO SCH (20:46)
[2019-12-10] MEDS: ULTRAM PO PRN (20:48)
[2019-12-10] MEDS: ZITHROMAX INJ 500 MG VIAL 500 MG in NS 250 ML IV 250 ML IV SCH (21:00)
[2019-12-11] MEDS: XOPENEX 1.25 MG/3 ML NEBULE NEB SCH ×4 (00:21→17:25)
[2019-12-11] MEDS: ASCORBIC ACID INJ MULTI-DOSE VIAL 1,500 MG in NS 100 ML IV 100 ML IV SCH ×4 (04:02→23:14)
[2019-12-11] MEDS: NORCO 5/325 MG TAB PO PRN ×2 (04:15→14:31)
[2019-12-11] MEDS: SOLU-Medrol 125 MG VIAL IVP SCH ×3 (05:10→21:30)
[2019-12-11] MEDS: NS 1000 ML 1,000 ML IV SCH (05:11)
[2019-12-11] MEDS: HumuLIN R SC PRN ×2 (05:46→10:55)
[2019-12-11] MEDS: MAG-OX TAB PO SCH ×2 (06:09→16:19)
[2019-12-11 06:15] LABS: BASOPHILS % (AUTO) 0.2 % (0.2-1.0); HEMOGLOBIN 10.2 g/dL (12.0-16.0); LYMPHOCYTES # (AUTO) 1.1 X10^3/uL (1.3-2.9); LYMPHOCYTES % (AUTO) 7.4 % (21.0-51.0); MEAN CORPUSCULAR HEMOGLOBIN 29.6 pg (27.0-34.0); MEAN CORPUSCULAR HGB CONC 34.2 g/dL (33.0-35.0); MEAN CORPUSCULAR VOLUME 86.7 fL (80.0-100.0); MEAN PLATELET VOLUME 8.6 fL (7.4-11.0); MONOCYTES # (AUTO) 0.7 x10^3/uL (0.3-0.8); MONOCYTES % (AUTO) 4.8 % (0.0-13.0); NEUTROPHILS # (AUTO) 12.7 x10^3/uL (2.2-4.8); NEUTROPHILS % (AUTO) 87.6 % (42.0-75.0); PLATELET COUNT 343 X10^3/uL (150.0-450.0); RED BLOOD COUNT 3.46 X10^6/uL (3.5-5.4); RED CELL DISTRIBUTION WIDTH 14.5 % (11.6-16.5); WHITE BLOOD COUNT 14.5 X10^3/uL (3.6-10.0)
[2019-12-11 06:42] LABS: ALANINE AMINOTRANSFERASE 28 Units/L (12-78); ALBUMIN 2.5 g/dL (3.4-5.0); ALKALINE PHOSPHATASE 145 Units/L (46-116); ASPARTATE AMINO TRANSFERASE 20 Units/L (15-37); BLOOD UREA NITROGEN 19 mg/dL (7-18); CARBON DIOXIDE 28.3 mmol/L (21-32); CHLORIDE 102 mmol/L (98-107); COR CA(FOR HYPOALB) 10.2 mg/dL (8.5-10.1); COR NA(FOR HYPERGLY) 142 mmol/L (136-145); CREATININE 0.74 mg/dL (0.55-1.02); SODIUM 139 mmol/L (136-145); TOTAL PROTEIN 7.4 g/dL (6.4-8.2); eGFR NON BLACK RACES > 60 (>60)
[2019-12-11 06:45] LABS: ABG BASE EXCESS 8.4 mmol/L (-2.0-2.0)
[2019-12-11 06:46] LABS: ABG ALLEN TEST POS; FRACTIONATED INSPIRED OXYGEN 94
--- NOTE | 2019-12-11 06:55 | RAD ---
HISTORYFollow-up pneumoniaSTUDYChest AP [id number]/29/2020FINDINGSThe heart is within normal limits in size. The lungs are hypoinflated. There has been general improvement in the bilateral infiltrates being followed. Residual infiltrates remain on the right. The left lung is clear or nearly so. No pleural effusions are identified. Bony thorax is unremarkable.IMPRESSIONImproving bilateral infiltrates when compared to the prior examinationElectronically signed by: KATHLEEN VAZQUEZ (Dec 11, 2019 06:55:50)
[2019-12-11] MEDS ORDERED: ZESTRIL TAB 20 MG ONE (07:55)
[2019-12-11] MEDS: FLONASE NASAL SPRAY ENOSTRIL SCH ×2 (08:31→20:18)
[2019-12-11] MEDS: LANTUS SC SCH (08:31)
[2019-12-11] MEDS: PEPCID 20 MG IV PREMIX* 20 MG/50 ML BAG IV SCH (08:32)
[2019-12-11] MEDS: PROTONIX INJ 40 MG VIAL IVP SCH (08:32)
[2019-12-11] MEDS: ROBITUSSIN DM PO SCH ×4 (08:33→20:18)
[2019-12-11] MEDS: TRICOR TAB 160 MG PO SCH (08:34)
[2019-12-11] MEDS: VITAMIN D3 125 mcg (5,000 UNITS) PO SCH (08:34)
[2019-12-11] MEDS: ZINC SULFATE PO SCH ×2 (08:35→20:16)
[2019-12-11] MEDS: ZESTRIL TAB 20 MG PO SCH (08:35)
[2019-12-11] MEDS: VITAMIN A PO SCH (08:35)
[2019-12-11] MEDS: MICRO K EXTEN CAP 10 MEQ PO SCH ×2 (08:37→20:17)
[2019-12-11] MEDS: LASIX IVP SCH ×2 (08:37→16:18)
[2019-12-11] MEDS: HEPARIN SODIUM IN D5W 25,000 UNITS/500 ML BAG IV PRN (10:54)
[2019-12-11] MEDS: SNACK - Diabetic Appropriate PO SCH (20:16)
[2019-12-11] MEDS: COLACE CAP 100 MG PO SCH (20:18)
[2019-12-11] MEDS: ZITHROMAX INJ 500 MG VIAL 500 MG in NS 250 ML IV 250 ML IV SCH (21:00)
[2019-12-12] MEDS: XOPENEX 1.25 MG/3 ML NEBULE NEB SCH ×4 (00:36→17:45)
[2019-12-12] MEDS: HEPARIN SODIUM IN D5W 25,000 UNITS/500 ML BAG IV PRN (01:11)
[2019-12-12] MEDS: NORCO 5/325 MG TAB PO PRN ×2 (02:49→14:25)
[2019-12-12 03:28] LABS: BASOPHILS % (AUTO) 0 % (0.2-1.0); HEMATOCRIT 32.2 % (36.0-47.0); HEMOGLOBIN 10.6 g/dL (12.0-16.0); LYMPHOCYTES # (AUTO) 0.8 X10^3/uL (1.3-2.9); LYMPHOCYTES % (AUTO) 6.3 % (21.0-51.0); MEAN CORPUSCULAR HEMOGLOBIN 29.1 pg (27.0-34.0); MEAN CORPUSCULAR HGB CONC 32.9 g/dL (33.0-35.0); MEAN CORPUSCULAR VOLUME 88.4 fL (80.0-100.0); MEAN PLATELET VOLUME 8.2 fL (7.4-11.0); MONOCYTES # (AUTO) 0.3 x10^3/uL (0.3-0.8); MONOCYTES % (AUTO) 2.6 % (0.0-13.0); NEUTROPHILS # (AUTO) 11.9 x10^3/uL (2.2-4.8); NEUTROPHILS % (AUTO) 91.1 % (42.0-75.0); PLATELET COUNT 382 X10^3/uL (150.0-450.0); RED BLOOD COUNT 3.64 X10^6/uL (3.5-5.4); RED CELL DISTRIBUTION WIDTH 14.6 % (11.6-16.5)
[2019-12-12 03:34] LABS: ALANINE AMINOTRANSFERASE 28 Units/L (12-78); ALBUMIN 2.7 g/dL (3.4-5.0); ALKALINE PHOSPHATASE 136 Units/L (46-116); ASPARTATE AMINO TRANSFERASE 19 Units/L (15-37); BLOOD UREA NITROGEN 20 mg/dL (7-18); CALCIUM 9.2 mg/dL (8.5-10.1); CARBON DIOXIDE 30.9 mmol/L (21-32); CHLORIDE 100 mmol/L (98-107); COR CA(FOR HYPOALB) 10.2 mg/dL (8.5-10.1); COR NA(FOR HYPERGLY) 143 mmol/L (136-145); SODIUM 138 mmol/L (136-145); TOTAL PROTEIN 7.7 g/dL (6.4-8.2); eGFR NON BLACK RACES > 60 (>60)
[2019-12-12] MEDS ORDERED: HEPARIN SODIUM INJ 5000 UNITS IVP ONE (03:45)
[2019-12-12] MEDS ORDERED: HEPARIN SODIUM INJ 5000 UNITS ONE (03:52)
[2019-12-12 03:53] LABS: BAND NEUTROPHILS % 1 % (0-10); PLATELET MORPHOLOGY COMMENT NORMAL (NORMAL)
[2019-12-12] MEDS: ASCORBIC ACID INJ MULTI-DOSE VIAL 1,500 MG in NS 100 ML IV 100 ML IV SCH ×4 (04:02→23:23)
[2019-12-12] MEDS: NS 1000 ML 1,000 ML IV SCH (05:01)
[2019-12-12] MEDS: SOLU-Medrol 125 MG VIAL IVP SCH ×3 (05:01→21:15)
[2019-12-12] MEDS: HumuLIN R SC PRN ×4 (05:31→20:26)
[2019-12-12] MEDS: MAG-OX TAB PO SCH ×2 (06:40→16:38)
[2019-12-12] MEDS ORDERED: ZESTRIL TAB 20 MG ONE (07:09)
[2019-12-12 08:03] LABS: ABG BASE EXCESS 5.6 mmol/L (-2.0-2.0)
[2019-12-12 08:04] LABS: ABG HCO3 31.1 mmol/L (22-26)
[2019-12-12] MEDS: FLONASE NASAL SPRAY ENOSTRIL SCH ×2 (08:36→20:24)
[2019-12-12] MEDS: PEPCID 20 MG IV PREMIX* 20 MG/50 ML BAG IV SCH (08:37)
[2019-12-12] MEDS: PROTONIX INJ 40 MG VIAL IVP SCH (08:37)
[2019-12-12] MEDS: ROBITUSSIN DM PO SCH ×4 (08:38→20:24)
[2019-12-12] MEDS: TRICOR TAB 160 MG PO SCH (08:38)
[2019-12-12] MEDS: VITAMIN A PO SCH (08:39)
[2019-12-12] MEDS: VITAMIN D3 125 mcg (5,000 UNITS) PO SCH (08:39)
[2019-12-12] MEDS: ZESTRIL TAB 20 MG PO SCH (08:40)
[2019-12-12] MEDS: ZINC SULFATE PO SCH ×2 (08:40→20:23)
[2019-12-12] MEDS: LANTUS SC SCH (08:40)
[2019-12-12] MEDS: ELIQUIS PO SCH ×2 (09:02→20:24)
--- NOTE | 2019-12-12 10:48 | RAD ---
HISTORYSOB- COVID POSITIVESTUDYCHEST, 1 [id number]/01/2020FINDINGSThe trachea is midline. The cardiac silhouette is widened but stable. Hypoventilatory exam with similar bilateral airspace opacities. The bony thorax is unremarkable.IMPRESSIONNo significant change. Similar bilateral airspace disease.Electronically signed by: KATHLEEN VAZQUEZ (Dec 12, 2019 10:50:33)
[2019-12-12] MEDS: COLACE CAP 100 MG PO SCH (20:23)
[2019-12-12] MEDS: SNACK - Diabetic Appropriate PO SCH (20:23)
[2019-12-12] MEDS: ULTRAM PO PRN (20:25)
[2019-12-12] MEDS: ZITHROMAX INJ 500 MG VIAL 500 MG in NS 250 ML IV 250 ML IV SCH (21:16)
[2019-12-13] MEDS: XOPENEX 1.25 MG/3 ML NEBULE NEB SCH ×4 (00:31→17:10)
[2019-12-13] MEDS: NORCO 5/325 MG TAB PO PRN ×3 (02:04→20:20)
[2019-12-13] MEDS: NS 1000 ML 1,000 ML IV SCH (05:14)
[2019-12-13] MEDS: ASCORBIC ACID INJ MULTI-DOSE VIAL 1,500 MG in NS 100 ML IV 100 ML IV SCH ×4 (05:14→22:48)
[2019-12-13] MEDS: SOLU-Medrol 125 MG VIAL IVP SCH ×3 (05:14→21:24)
[2019-12-13] MEDS: HumuLIN R SC PRN ×2 (05:38→12:29)
[2019-12-13] MEDS: MAG-OX TAB PO SCH ×2 (06:15→17:16)
[2019-12-13 06:22] LABS: BASOPHILS % (AUTO) 0.3 % (0.2-1.0); EOSINOPHILS % (AUTO) 0.1 % (0.9-2.9); HEMATOCRIT 32.4 % (36.0-47.0); LYMPHOCYTES # (AUTO) 0.8 X10^3/uL (1.3-2.9); LYMPHOCYTES % (AUTO) 6.5 % (21.0-51.0); MEAN CORPUSCULAR HEMOGLOBIN 29.8 pg (27.0-34.0); MEAN CORPUSCULAR HGB CONC 33.8 g/dL (33.0-35.0); MEAN CORPUSCULAR VOLUME 88.1 fL (80.0-100.0); MEAN PLATELET VOLUME 8.2 fL (7.4-11.0); MONOCYTES # (AUTO) 0.4 x10^3/uL (0.3-0.8); MONOCYTES % (AUTO) 3.5 % (0.0-13.0); NEUTROPHILS # (AUTO) 11.2 x10^3/uL (2.2-4.8); NEUTROPHILS % (AUTO) 89.6 % (42.0-75.0); PLATELET COUNT 358 X10^3/uL (150.0-450.0); RED BLOOD COUNT 3.68 X10^6/uL (3.5-5.4); RED CELL DISTRIBUTION WIDTH 14.7 % (11.6-16.5); WHITE BLOOD COUNT 12.5 X10^3/uL (3.6-10.0)
[2019-12-13 06:40] LABS: ALANINE AMINOTRANSFERASE 25 Units/L (12-78); ALBUMIN 2.8 g/dL (3.4-5.0); ALKALINE PHOSPHATASE 128 Units/L (46-116); ASPARTATE AMINO TRANSFERASE 17 Units/L (15-37); BLOOD UREA NITROGEN 20 mg/dL (7-18); CALCIUM 9.3 mg/dL (8.5-10.1); CHLORIDE 101 mmol/L (98-107); COR CA(FOR HYPOALB) 10.3 mg/dL (8.5-10.1); COR NA(FOR HYPERGLY) 141 mmol/L (136-145); CREATININE 0.74 mg/dL (0.55-1.02); SODIUM 138 mmol/L (136-145); TOTAL PROTEIN 7.6 g/dL (6.4-8.2); eGFR NON BLACK RACES > 60 (>60)
[2019-12-13] MEDS ORDERED: ZESTRIL TAB 20 MG ONE (09:16)
[2019-12-13] MEDS: ELIQUIS PO SCH ×2 (09:23→20:19)
[2019-12-13] MEDS: FLONASE NASAL SPRAY ENOSTRIL SCH ×2 (09:23→20:19)
[2019-12-13] MEDS: LANTUS SC SCH (09:24)
[2019-12-13] MEDS: PROTONIX INJ 40 MG VIAL IVP SCH (09:26)
[2019-12-13] MEDS: PEPCID 20 MG IV PREMIX* 20 MG/50 ML BAG IV SCH (09:26)
[2019-12-13] MEDS: ZESTRIL TAB 20 MG PO SCH (09:28)
[2019-12-13] MEDS: ZINC SULFATE PO SCH ×2 (09:28→20:20)
[2019-12-13] MEDS: ROBITUSSIN DM PO SCH ×4 (09:28→20:18)
[2019-12-13] MEDS: VITAMIN D3 125 mcg (5,000 UNITS) PO SCH (09:29)
[2019-12-13] MEDS: TRICOR TAB 160 MG PO SCH (09:30)
[2019-12-13] MEDS: VITAMIN A PO SCH (09:30)
--- NOTE | 2019-12-13 12:44 | PCM.PROG ---
Progress Note Progress Note for Day of Date of Exam: 12/13/19 Subjective Subjective: Pt is a 59 yo f admitted for COVID19 pneumonia(positive 11/24), hypoxia, and DVT(LLE). This morning she is sitting in chair on heated high flow. Labs/imaging: Wbc 12.5, Hgb 11, Plt 358, Na 138, K 4.6, Cr 0.74, Gluc 223. She has been receiving aggressive respiratory therapy, supplemental oxygen, corticosteroid therapy, and dual antibiotic coverage. Pneumonia protocol. Eliquis for DVT. Continue with treatment plan. Monitor and follow up labs/imaging in the morning. Past Medical Family Social History Past Med/Fam/Surg Hx: No changes since H&P Allergies: Allergies No Known Drug Allergies Allergy (Verified 03/12/19 17:18) Review of Systems ROS: No change since H&P Vital Signs and I&O's Vital Signs: Temperature 98.7 F Pulse Rate [Right Brachial] 85 Pulse Rate [Left Brachial] 98 Pulse Rate 98 Respiratory Rate 26 Blood Pressure [Right Arm] 149/69 Blood Pressure [Left Arm] 125/58 Blood Pressure 141/71 O2 Sat by Pulse Oximetry 91 Intake and Output: Intake & Output 12/10/19 12/11/19 12/12/19 12/13/19 23:59 23:59 23:59 23:59 Intake Total 3878 / 3878 4601 / 4601 3546 / 3546 820 / 820 Output Total 2375 / 2375 4850 / 4850 1900 / 1900 1000 / 1000 Balance 1503 / 1503 -249 / -249 1646 / 1646 -180 / -180 Physical Exam Oriented: Normal Eyes: Normal Ear: Normal Nose: Normal Throat: Normal Respiratory: Diminished Cardiovascular: Normal : Normal Auscultation: Bowel Sounds: Normal Tenderness: Epigastric and Mild Skin: Normal Musculoskeletal: Back:Lumbar Psychiatric: Normal Speech Pattern: Clear and Appropriate Laboratory and Diagnostics Result Diagrams: 12/13/19 05:48 12/13/19 05:48 Labs: 12/09/19 10:17 Blood Blood Culture - Preliminary 12/09/19 10:10 Blood Blood Culture - Preliminary 11/25/19 04:53 Blood Blood Culture - Final 11/25/19 04:58 Blood Blood Culture - Final 11/25/19 13:50 Urine,Clean Catch Urine Culture - Final Laboratory WBC 12.5 X10^3/uL (3.6-10.0) H 12/13/19 05:48 RBC 3.68 X10^6/uL (3.5-5.4) 12/13/19 05:48 Hgb 11.0 g/dL (12.0-16.0) L 12/13/19 05:48 Hct 32.4 % (36.0-47.0) L 12/13/19 05:48 MCV 88.1 fL (80.0-100.0) 12/13/19 05:48 MCH 29.8 pg (27.0-34.0) 12/13/19 05:48 MCHC 33.8 g/dL (33.0-35.0) 12/13/19 05:48 RDW 14.7 % (11.6-16.5) 12/13/19 05:48 Plt Count 358 X10^3/uL (150.0-450.0) 12/13/19 05:48 Plt Count Comment Adequate (ADEQUATE) 12/12/19 03:11 MPV 8.2 fL (7.4-11.0) 12/13/19 05:48 Neut % (Auto) 89.6 % (42.0-75.0) H 12/13/19 05:48 Lymph % (Auto) 6.5 % (21.0-51.0) L 12/13/19 05:48 [place] % (Auto) 3.5 % (0.0-13.0) 12/13/19 05:48 Eos % (Auto) 0.1 % (0.9-2.9) L 12/13/19 05:48 Baso % (Auto) 0.3 % (0.2-1.0) 12/13/19 05:48 Neut # (Auto) 11.2 x10^3/uL (2.2-4.8) H 12/13/19 05:48 Lymph # (Auto) 0.8 X10^3/uL (1.3-2.9) L 12/13/19 05:48 [place] # (Auto) 0.4 x10^3/uL (0.3-0.8) 12/13/19 05:48 Eos # (Auto) 0.0 x10^3/uL (0.0-0.2) 12/13/19 05:48 Baso # (Auto) 0.0 X10^3/uL (0.0-0.1) 12/13/19 05:48 Absolute Nucleated RBC 0.1 /100WBC 12/13/19 05:48 Total Counted 100 12/12/19 03:11 Neutrophils % (Manual) 92 % (39-76) H 12/12/19 03:11 Band Neutrophils % 1 % (0-10) 12/12/19 03:11 Lymphocytes % (Manual) 6 % (13-43) L 12/12/19 03:11 Monocytes % (Manual) 1 % (4-9) L 12/12/19 03:11 Eosinophils % (Manual) 1 % (0-6) 12/06/19 04:41 Plt Morphology Comment Normal (NORMAL) 12/12/19 03:11 RBC Morphology Normal (NORMAL) 12/12/19 03:11 ESR 67 MM/HOUR (0-20) H 12/11/19 05:24 PT 29.7 SECONDS (11.8-14.3) 11/29/19 01:41 INR Target Range - 11/29/19 01:41 INR 2.93 (0.8-1.3) H 11/29/19 01:41 APTT 133.2 SECONDS (22.9-36.5) H 12/12/19 09:38 PTT Comment - 12/12/19 09:38 D-Dimer 0.45 ug/ml (0.0-0.57) 11/28/19 17:18 Sample Site Rb 12/12/19 07:57 ABG pH 7.420 (7.35-7.45) 12/12/19 07:57 ABG pCO2 48.0 mmHg (35.0-45.0) H 12/12/19 07:57 ABG pO2 55.0 mmHg (80.0-100.0) L 12/12/19 07:57 ABG HCO3 31.1 mmol/L (22-26) H* 12/12/19 07:57 ABG O2 Saturation 89.0 % (90-100) L 12/12/19 07:57 ABG Base Excess 5.6 mmol/L (-2.0-2.0) H 12/12/19 07:57 Willy Test Na 12/12/19 07:57 A-a Gradient 548.0 mmHg 12/12/19 07:57 FiO2 93.0 12/12/19 07:57 Blood Gas Comments Dulce Maria well 12/12/19 07:57 Sodium 138 mmol/L (136-145) 12/13/19 05:48 Corrected Sodium 141 mmol/L (136-145) 12/13/19 05:48 Potassium 4.6 mmol/L (3.5-5.1) 12/13/19 05:48 Chloride 101 mmol/L (98-107) 12/13/19 05:48 Carbon Dioxide 29.0 mmol/L (21-32) 12/13/19 05:48 BUN 20 mg/dL (7-18) H 12/13/19 05:48 Creatinine 0.74 mg/dL (0.55-1.02) 12/13/19 05:48 Est GFR (MDRD) Af Amer > 60 (>60) 12/13/19 05:48 Est GFR (MDRD) Non-Af > 60 (>60) 12/13/19 05:48 Glucose 223 mg/dL (65-99) H 12/13/19 05:48 POC Glucose (mg/dL) 268 mg/dL (65-99) H 12/13/19 11:34 Lactic Acid 0.9 mmol/L (0.4-2.0) 11/25/19 08:26 Calcium 9.3 mg/dL (8.5-10.1) 12/13/19 05:48 Corrected Calcium 10.3 mg/dL (8.5-10.1) H 12/13/19 05:48 Magnesium 1.7 mg/dL (1.7-2.9) 12/08/19 04:57 Ferritin 345 ng/mL (8-252) H 11/28/19 04:49 Total Bilirubin 0.30 mg/dL (0.2-1.0) 12/13/19 05:48 AST 17 Units/L (15-37) 12/13/19 05:48 ALT 25 Units/L (12-78) 12/13/19 05:48 Alkaline Phosphatase 128 Units/L (46-116) H 12/13/19 05:48 Creatine Kinase 35 Units/L (26-192) 12/09/19 10:10 CK-MB (CK-2) 1.2 ng/mL (0-4.0) 12/09/19 10:10 CK/CKMB % Calc 3.4 % (<4) 12/09/19 10:10 Troponin I < 0.02 ng/mL (0-1.5) 12/09/19 10:10 C-Reactive Protein 17.70 mg/L (0-3.0) H 12/12/19 03:11 Total Protein 7.6 g/dL (6.4-8.2) 12/13/19 05:48 Albumin 2.8 g/dL (3.4-5.0) L 12/13/19 05:48 Globulin 4.8 g/dL (2.5-4.5) H 12/13/19 05:48 Albumin/Globulin Ratio 0.6 Ratio (1.1-2.1) L 12/13/19 05:48 Specimen Type Catherized urine 11/29/19 05:53 Urine Color Yellow (YELLOW) 11/29/19 05:53 Urine Appearance Clear (CLEAR) 11/29/19 05:53 Urine pH 7.0 (5.0 - 8.0) 11/29/19 05:53 Ur Specific [place] 1.005 (1.000-1.030) 11/29/19 05:53 Urine Protein 2+ (NEGATIVE) 11/29/19 05:53 Urine Glucose (UA) 4+ (NEGATIVE) 11/29/19 05:53 Urine Ketones Negative (NEGATIVE) 11/29/19 05:53 Urine Occult Blood Negative (NEGATIVE) 11/29/19 05:53 Urine Nitrite Negative (NEGATIVE) 11/29/19 05:53 Urine Bilirubin Negative (NEGATIVE) 11/29/19 05:53 Urine Acetone Small (NEGATIVE) H 11/26/19 17:50 Urine Urobilinogen Normal (NORMAL) 11/29/19 05:53 Ur Leukocyte Esterase Negative (NEGATIVE) 11/29/19 05:53 Urine RBC None seen /HPF (0-3) 11/29/19 05:53 Urine WBC None seen /HPF (0-5) 11/29/19 05:53 Ur Squamous Epith Cells Negative /HPF (NEGATIVE) 11/29/19 05:53 Amorphous Sediment 1+ /HPF (NEGATIVE) 11/26/19 17:51 Urine Bacteria Negative /HPF (NEGATIVE) 11/29/19 05:53 Ur Culture Indicated? No/not indicated 11/29/19 05:53 Influenza Type A Ag Negative-presumptive (NEGATIVE) 11/24/19 20:30 Influenza Type B Ag Negative-presumptive (NEGATIVE) 11/24/19 20:30 SARS-CoV-2 (PCR) Positive (NEGATIVE) A 11/25/19 00:14 S. pyogenes (TEM-PCR) Not detected (NOT DETECT) 11/24/19 20:30 Blood Type O POSITIVE 11/25/19 08:42 Plan (1) Bilateral interstitial pneumonia: Status: Acute Plan: DUE TO COVID 19. PT ADMITTED TO ICU ISOLATION STRICT I&OS, SUPPLEMENTAL O2, CONTINUOUS CARDIAC MONITORING IV ZITHROMAX AND ZOSYN, IV REMDESIVIR AND CONVALESCENT PLASMA BS CONTROL, SSI COVERAGE, AM LABS, BC ON ADMISSION, FEVER CONTRO RESP THERAPY (2) Diabetes mellitus type 2: Status: Acute (3) Hypoxia: Status: Acute (4) Essential hypertension: Status: Acute (5) Gastroesophageal reflux disease: Status: Chronic (6) Degenerative lumbar spinal stenosis: Status: Chronic
[2019-12-13] MEDS: ULTRAM PO PRN (16:30)
[2019-12-13] MEDS: SNACK - Diabetic Appropriate PO SCH (20:17)
[2019-12-13] MEDS: COLACE CAP 100 MG PO SCH (20:18)
[2019-12-13] MEDS: ZITHROMAX INJ 500 MG VIAL 500 MG in NS 250 ML IV 250 ML IV SCH (21:24)
[2019-12-14] MEDS: XOPENEX 1.25 MG/3 ML NEBULE NEB SCH ×5 (00:18→17:10)
[2019-12-14] MEDS: NS 1000 ML 1,000 ML IV SCH (05:24)
[2019-12-14] MEDS: ASCORBIC ACID INJ MULTI-DOSE VIAL 1,500 MG in NS 100 ML IV 100 ML IV SCH ×4 (05:24→23:06)
[2019-12-14] MEDS: SOLU-Medrol 125 MG VIAL IVP SCH ×3 (05:25→21:14)
[2019-12-14] MEDS: NORCO 5/325 MG TAB PO PRN ×2 (05:29→17:58)
[2019-12-14] MEDS: MIRALAX POWDER (1 DOSE 17 G) PO PRN (05:30)
[2019-12-14 05:32] LABS: ABG ALLEN TEST POS; ABG BASE EXCESS 9.8 mmol/L (-2.0-2.0); ABG HCO3 34.9 mmol/L (22-26)
[2019-12-14] MEDS ORDERED: ZESTRIL TAB 20 MG ONE (06:03)
[2019-12-14] MEDS: MAG-OX TAB PO SCH ×2 (06:19→17:12)
[2019-12-14 06:59] LABS: ALANINE AMINOTRANSFERASE 28 Units/L (12-78); ALBUMIN 2.7 g/dL (3.4-5.0); ALKALINE PHOSPHATASE 122 Units/L (46-116); ASPARTATE AMINO TRANSFERASE 38 Units/L (15-37); BLOOD UREA NITROGEN 17 mg/dL (7-18); CALCIUM 9.2 mg/dL (8.5-10.1); CARBON DIOXIDE 24.7 mmol/L (21-32); CHLORIDE 102 mmol/L (98-107); COR CA(FOR HYPOALB) 10.2 mg/dL (8.5-10.1); COR NA(FOR HYPERGLY) 141 mmol/L (136-145); CREATININE 0.76 mg/dL (0.55-1.02); SODIUM 140 mmol/L (136-145); TOTAL PROTEIN 7.6 g/dL (6.4-8.2); eGFR NON BLACK RACES > 60 (>60)
[2019-12-14 08:25] LABS: BASOPHILS % (AUTO) 0.2 % (0.2-1.0); EOSINOPHILS # (AUTO) 0.1 x10^3/uL (0.0-0.2); EOSINOPHILS % (AUTO) 0.4 % (0.9-2.9); HEMATOCRIT 33.5 % (36.0-47.0); HEMOGLOBIN 11.1 g/dL (12.0-16.0); LYMPHOCYTES # (AUTO) 0.4 X10^3/uL (1.3-2.9); LYMPHOCYTES % (AUTO) 3.1 % (21.0-51.0); MEAN CORPUSCULAR HEMOGLOBIN 29.5 pg (27.0-34.0); MEAN CORPUSCULAR HGB CONC 33.1 g/dL (33.0-35.0); MEAN PLATELET VOLUME 8.2 fL (7.4-11.0); MONOCYTES # (AUTO) 0.3 x10^3/uL (0.3-0.8); MONOCYTES % (AUTO) 1.9 % (0.0-13.0); NEUTROPHILS # (AUTO) 13.3 x10^3/uL (2.2-4.8); NEUTROPHILS % (AUTO) 94.4 % (42.0-75.0); PLATELET COUNT 300 X10^3/uL (150.0-450.0); RED BLOOD COUNT 3.76 X10^6/uL (3.5-5.4); RED CELL DISTRIBUTION WIDTH 14.6 % (11.6-16.5)
[2019-12-14 08:46] LABS: PLATELET MORPHOLOGY COMMENT NORMAL (NORMAL)
[2019-12-14] MEDS: ELIQUIS PO SCH ×2 (08:59→20:10)
[2019-12-14] MEDS: FLONASE NASAL SPRAY ENOSTRIL SCH ×2 (09:00→20:12)
[2019-12-14] MEDS: ROBITUSSIN DM PO SCH ×4 (09:06→20:11)
[2019-12-14] MEDS: TRICOR TAB 160 MG PO SCH (09:09)
[2019-12-14] MEDS: ZESTRIL TAB 20 MG PO SCH (09:09)
[2019-12-14] MEDS: LANTUS SC SCH (09:10)
[2019-12-14] MEDS: ZINC SULFATE PO SCH ×2 (09:10→20:11)
[2019-12-14] MEDS: VITAMIN D3 125 mcg (5,000 UNITS) PO SCH (09:10)
[2019-12-14] MEDS: VITAMIN A PO SCH (09:11)
[2019-12-14] MEDS: PROTONIX INJ 40 MG VIAL IVP SCH (09:12)
[2019-12-14] MEDS: PEPCID 20 MG IV PREMIX* 20 MG/50 ML BAG IV SCH (09:12)
--- NOTE | 2019-12-14 10:43 | PCM.PROG ---
Progress Note Progress Note for Day of Date of Exam: 12/14/19 Subjective Subjective: Pt is a 59 yo f admitted for COVID19 pneumonia(positive 11/24), hypoxia, and DVT(LLE). She is in her chair this morning on heated high flow. Labs/imaging: Wbc 14, Hgb 11.1, Plt 300, Na 140, K 4.7, Cr 0.76, Gluc 151. AB.47/48/52/34/89% on FiO2 93%. She has been receiving aggressive respiratory therapy, supplemental oxygen, corticosteroid therapy, and dual antibiotic coverage. Pneumonia protocol. Eliquis for DVT. Her mood has been down recently, will start on zoloft. Continue with treatment plan. Monitor and follow up labs/imaging in the morning. Past Medical Family Social History Past Med/Fam/Surg Hx: No changes since H&P Allergies: Allergies No Known Drug Allergies Allergy (Verified 03/12/19 17:18) Review of Systems ROS: No change since H&P Vital Signs and I&O's Vital Signs: Temperature 98.3 F Pulse Rate [Right Brachial] 94 Pulse Rate [Left Brachial] 98 Pulse Rate 97 Respiratory Rate 13 Blood Pressure [Right Arm] 143/69 Blood Pressure [Left Arm] 125/58 Blood Pressure 141/71 O2 Sat by Pulse Oximetry 88 Intake and Output: Intake & Output 12/11/19 12/12/19 12/13/19 12/14/19 23:59 23:59 23:59 23:59 Intake Total 4601 / 4601 3546 / 3546 2310 / 2310 460 / 460 Output Total 4850 / 4850 1900 / 1900 3200 / 3200 900 / 900 Balance -249 / -249 1646 / 1646 -890 / -890 -440 / -440 Physical Exam Oriented: Normal Eyes: Normal Ear: Normal Nose: Normal Throat: Normal Respiratory: Diminished Cardiovascular: Normal : Normal Auscultation: Bowel Sounds: Normal Tenderness: Epigastric and Mild Skin: Normal Musculoskeletal: Back:Lumbar Psychiatric: Normal Speech Pattern: Clear and Appropriate Laboratory and Diagnostics Result Diagrams: 12/14/19 06:15 12/14/19 06:15 Labs: 12/09/19 10:17 Blood Blood Culture - Preliminary 12/09/19 10:10 Blood Blood Culture - Preliminary 11/25/19 04:53 Blood Blood Culture - Final 11/25/19 04:58 Blood Blood Culture - Final 11/25/19 13:50 Urine,Clean Catch Urine Culture - Final Laboratory WBC 14.0 X10^3/uL (3.6-10.0) H 12/14/19 06:15 RBC 3.76 X10^6/uL (3.5-5.4) 12/14/19 06:15 Hgb 11.1 g/dL (12.0-16.0) L 12/14/19 06:15 Hct 33.5 % (36.0-47.0) L 12/14/19 06:15 MCV 89.0 fL (80.0-100.0) 12/14/19 06:15 MCH 29.5 pg (27.0-34.0) 12/14/19 06:15 MCHC 33.1 g/dL (33.0-35.0) 12/14/19 06:15 RDW 14.6 % (11.6-16.5) 12/14/19 06:15 Plt Count 300 X10^3/uL (150.0-450.0) 12/14/19 06:15 Plt Count Comment Adequate (ADEQUATE) 12/14/19 06:15 MPV 8.2 fL (7.4-11.0) 12/14/19 06:15 Neut % (Auto) 94.4 % (42.0-75.0) H 12/14/19 06:15 Lymph % (Auto) 3.1 % (21.0-51.0) L 12/14/19 06:15 [place] % (Auto) 1.9 % (0.0-13.0) 12/14/19 06:15 Eos % (Auto) 0.4 % (0.9-2.9) L 12/14/19 06:15 Baso % (Auto) 0.2 % (0.2-1.0) 12/14/19 06:15 Neut # (Auto) 13.3 x10^3/uL (2.2-4.8) H 12/14/19 06:15 Lymph # (Auto) 0.4 X10^3/uL (1.3-2.9) L 12/14/19 06:15 [place] # (Auto) 0.3 x10^3/uL (0.3-0.8) 12/14/19 06:15 Eos # (Auto) 0.1 x10^3/uL (0.0-0.2) 12/14/19 06:15 Baso # (Auto) 0.0 X10^3/uL (0.0-0.1) 12/14/19 06:15 Absolute Nucleated RBC 0.1 /100WBC 12/14/19 06:15 Total Counted 100 12/14/19 06:15 Neutrophils % (Manual) 88 % (39-76) H 12/14/19 06:15 Band Neutrophils % 1 % (0-10) 12/12/19 03:11 Lymphocytes % (Manual) 6 % (13-43) L 12/14/19 06:15 Monocytes % (Manual) 6 % (4-9) 12/14/19 06:15 Eosinophils % (Manual) 1 % (0-6) 12/06/19 04:41 Plt Morphology Comment Normal (NORMAL) 12/14/19 06:15 RBC Morphology Normal (NORMAL) 12/14/19 06:15 ESR 67 MM/HOUR (0-20) H 12/11/19 05:24 PT 29.7 SECONDS (11.8-14.3) 11/29/19 01:41 INR Target Range - 11/29/19 01:41 INR 2.93 (0.8-1.3) H 11/29/19 01:41 APTT 133.2 SECONDS (22.9-36.5) H 12/12/19 09:38 PTT Comment - 12/12/19 09:38 D-Dimer 0.45 ug/ml (0.0-0.57) 11/28/19 17:18 Sample Site Lr 12/14/19 05:25 ABG pH 7.470 (7.35-7.45) H 12/14/19 05:25 ABG pCO2 48.0 mmHg (35.0-45.0) H 12/14/19 05:25 ABG pO2 52.0 mmHg (80.0-100.0) L 12/14/19 05:25 ABG HCO3 34.9 mmol/L (22-26) H* 12/14/19 05:25 ABG O2 Saturation 89.0 % (90-100) L 12/14/19 05:25 ABG Base Excess 9.8 mmol/L (-2.0-2.0) H 12/14/19 05:25 Willy Test Pos 12/14/19 05:25 A-a Gradient 551.0 mmHg 12/14/19 05:25 FiO2 93.0 12/14/19 05:25 Blood Gas Comments Pt al well. cdn/sw 12/14/19 05:25 Sodium 140 mmol/L (136-145) 12/14/19 06:15 Corrected Sodium 141 mmol/L (136-145) 12/14/19 06:15 Potassium 4.7 mmol/L (3.5-5.1) 12/14/19 06:15 Chloride 102 mmol/L (98-107) 12/14/19 06:15 Carbon Dioxide 24.7 mmol/L (21-32) 12/14/19 06:15 BUN 17 mg/dL (7-18) 12/14/19 06:15 Creatinine 0.76 mg/dL (0.55-1.02) 12/14/19 06:15 Est GFR (MDRD) Af Amer > 60 (>60) 12/14/19 06:15 Est GFR (MDRD) Non-Af > 60 (>60) 12/14/19 06:15 Glucose 151 mg/dL (65-99) H 12/14/19 06:15 POC Glucose (mg/dL) 136 mg/dL (65-99) H 12/14/19 05:13 Lactic Acid 0.9 mmol/L (0.4-2.0) 11/25/19 08:26 Calcium 9.2 mg/dL (8.5-10.1) 12/14/19 06:15 Corrected Calcium 10.2 mg/dL (8.5-10.1) H 12/14/19 06:15 Magnesium 1.7 mg/dL (1.7-2.9) 12/08/19 04:57 Ferritin 345 ng/mL (8-252) H 11/28/19 04:49 Total Bilirubin 0.50 mg/dL (0.2-1.0) 12/14/19 06:15 AST 38 Units/L (15-37) H 12/14/19 06:15 ALT 28 Units/L (12-78) 12/14/19 06:15 Alkaline Phosphatase 122 Units/L (46-116) H 12/14/19 06:15 Creatine Kinase 35 Units/L (26-192) 12/09/19 10:10 CK-MB (CK-2) 1.2 ng/mL (0-4.0) 12/09/19 10:10 CK/CKMB % Calc 3.4 % (<4) 12/09/19 10:10 Troponin I < 0.02 ng/mL (0-1.5) 12/09/19 10:10 C-Reactive Protein 17.70 mg/L (0-3.0) H 12/12/19 03:11 Total Protein 7.6 g/dL (6.4-8.2) 12/14/19 06:15 Albumin 2.7 g/dL (3.4-5.0) L 12/14/19 06:15 Globulin 4.9 g/dL (2.5-4.5) H 12/14/19 06:15 Albumin/Globulin Ratio 0.6 Ratio (1.1-2.1) L 12/14/19 06:15 Specimen Type Catherized urine 11/29/19 05:53 Urine Color Yellow (YELLOW) 11/29/19 05:53 Urine Appearance Clear (CLEAR) 11/29/19 05:53 Urine pH 7.0 (5.0 - 8.0) 11/29/19 05:53 Ur Specific [place] 1.005 (1.000-1.030) 11/29/19 05:53 Urine Protein 2+ (NEGATIVE) 11/29/19 05:53 Urine Glucose (UA) 4+ (NEGATIVE) 11/29/19 05:53 Urine Ketones Negative (NEGATIVE) 11/29/19 05:53 Urine Occult Blood Negative (NEGATIVE) 11/29/19 05:53 Urine Nitrite Negative (NEGATIVE) 11/29/19 05:53 Urine Bilirubin Negative (NEGATIVE) 11/29/19 05:53 Urine Acetone Small (NEGATIVE) H 11/26/19 17:50 Urine Urobilinogen Normal (NORMAL) 11/29/19 05:53 Ur Leukocyte Esterase Negative (NEGATIVE) 11/29/19 05:53 Urine RBC None seen /HPF (0-3) 11/29/19 05:53 Urine WBC None seen /HPF (0-5) 11/29/19 05:53 Ur Squamous Epith Cells Negative /HPF (NEGATIVE) 11/29/19 05:53 Amorphous Sediment 1+ /HPF (NEGATIVE) 11/26/19 17:51 Urine Bacteria Negative /HPF (NEGATIVE) 11/29/19 05:53 Ur Culture Indicated? No/not indicated 11/29/19 05:53 Influenza Type A Ag Negative-presumptive (NEGATIVE) 11/24/19 20:30 Influenza Type B Ag Negative-presumptive (NEGATIVE) 11/24/19 20:30 SARS-CoV-2 (PCR) Positive (NEGATIVE) A 11/25/19 00:14 S. pyogenes (TEM-PCR) Not detected (NOT DETECT) 11/24/19 20:30 Blood Type O POSITIVE 11/25/19 08:42 Plan (1) Bilateral interstitial pneumonia: Status: Acute Plan: DUE TO COVID 19. PT ADMITTED TO ICU ISOLATION STRICT I&OS, SUPPLEMENTAL O2, CONTINUOUS CARDIAC MONITORING IV ZITHROMAX AND ZOSYN, IV REMDESIVIR AND CONVALESCENT PLASMA BS CONTROL, SSI COVERAGE, AM LABS, BC ON ADMISSION, FEVER CONTRO RESP THERAPY (2) Diabetes mellitus type 2: Status: Acute (3) Hypoxia: Status: Acute (4) Essential hypertension: Status: Acute (5) Gastroesophageal reflux disease: Status: Chronic (6) Degenerative lumbar spinal stenosis: Status: Chronic
[2019-12-14] MEDS: HumuLIN R SC PRN ×3 (13:15→20:49)
[2019-12-14] MEDS: ATIVAN INJ 2 MG VIAL IVP PRN (19:23)
[2019-12-14] MEDS: COLACE CAP 100 MG PO SCH (20:11)
[2019-12-14] MEDS: SNACK - Diabetic Appropriate PO SCH (20:11)
[2019-12-14] MEDS: ZITHROMAX INJ 500 MG VIAL 500 MG in NS 250 ML IV 250 ML IV SCH (21:14)
[2019-12-14] MEDS: ZOLOFT PO SCH (21:25)
[2019-12-15] MEDS: XOPENEX 1.25 MG/3 ML NEBULE NEB SCH ×4 (00:50→17:00)
[2019-12-15] MEDS: NORCO 5/325 MG TAB PO PRN ×2 (01:29→16:25)
[2019-12-15] MEDS: ASCORBIC ACID INJ MULTI-DOSE VIAL 1,500 MG in NS 100 ML IV 100 ML IV SCH ×4 (04:37→23:48)
[2019-12-15] MEDS: NS 1000 ML 1,000 ML IV SCH (04:37)
[2019-12-15] MEDS: SOLU-Medrol 125 MG VIAL IVP SCH ×3 (05:12→21:19)
[2019-12-15] MEDS: ULTRAM PO PRN (05:49)
[2019-12-15] MEDS: MAG-OX TAB PO SCH ×2 (06:01→16:53)
[2019-12-15 06:11] LABS: BASOPHILS % (AUTO) 0.3 % (0.2-1.0); EOSINOPHILS # (AUTO) 0.3 x10^3/uL (0.0-0.2); EOSINOPHILS % (AUTO) 2.5 % (0.9-2.9); HEMOGLOBIN 11.7 g/dL (12.0-16.0); LYMPHOCYTES # (AUTO) 1.3 X10^3/uL (1.3-2.9); LYMPHOCYTES % (AUTO) 10.3 % (21.0-51.0); MEAN CORPUSCULAR HEMOGLOBIN 29.5 pg (27.0-34.0); MEAN CORPUSCULAR HGB CONC 33.5 g/dL (33.0-35.0); MEAN CORPUSCULAR VOLUME 87.9 fL (80.0-100.0); MEAN PLATELET VOLUME 7.5 fL (7.4-11.0); MONOCYTES # (AUTO) 0.3 x10^3/uL (0.3-0.8); MONOCYTES % (AUTO) 2.8 % (0.0-13.0); NEUTROPHILS # (AUTO) 10.6 x10^3/uL (2.2-4.8); NEUTROPHILS % (AUTO) 84.1 % (42.0-75.0); PLATELET COUNT 282 X10^3/uL (150.0-450.0); RED BLOOD COUNT 3.99 X10^6/uL (3.5-5.4); WHITE BLOOD COUNT 12.6 X10^3/uL (3.6-10.0)
[2019-12-15 06:26] LABS: ALANINE AMINOTRANSFERASE 27 Units/L (12-78); ALBUMIN 2.8 g/dL (3.4-5.0); ALKALINE PHOSPHATASE 133 Units/L (46-116); ASPARTATE AMINO TRANSFERASE 19 Units/L (15-37); BLOOD UREA NITROGEN 18 mg/dL (7-18); CALCIUM 9.5 mg/dL (8.5-10.1); CARBON DIOXIDE 29.7 mmol/L (21-32); CHLORIDE 99 mmol/L (98-107); COR CA(FOR HYPOALB) 10.5 mg/dL (8.5-10.1); CREATININE 0.76 mg/dL (0.55-1.02); SODIUM 138 mmol/L (136-145); TOTAL PROTEIN 7.7 g/dL (6.4-8.2); eGFR NON BLACK RACES > 60 (>60)
[2019-12-15 06:39] LABS: PLATELET MORPHOLOGY COMMENT NORMAL (NORMAL)
[2019-12-15] MEDS ORDERED: ZESTRIL TAB 20 MG ONE (08:33)
[2019-12-15] MEDS: ELIQUIS PO SCH ×2 (08:37→21:15)
[2019-12-15] MEDS: LANTUS SC SCH (08:38)
[2019-12-15] MEDS: PEPCID 20 MG IV PREMIX* 20 MG/50 ML BAG IV SCH (08:39)
[2019-12-15] MEDS: FLONASE NASAL SPRAY ENOSTRIL SCH ×2 (08:39→21:00)
[2019-12-15] MEDS: PROTONIX INJ 40 MG VIAL IVP SCH (08:39)
[2019-12-15] MEDS: ROBITUSSIN DM PO SCH ×5 (08:40→21:20)
[2019-12-15] MEDS: TRICOR TAB 160 MG PO SCH (08:40)
[2019-12-15] MEDS: ZINC SULFATE PO SCH ×2 (08:41→21:15)
[2019-12-15] MEDS: VITAMIN D3 125 mcg (5,000 UNITS) PO SCH (08:41)
[2019-12-15] MEDS: ZOLOFT PO SCH (08:41)
[2019-12-15] MEDS: ZESTRIL TAB 20 MG PO SCH (08:41)
[2019-12-15] MEDS: VITAMIN A PO SCH (08:42)
[2019-12-15] MEDS ORDERED: ZOLOFT PO SCH (09:00)
--- NOTE | 2019-12-15 09:54 | RAD ---
HISTORYPNEUMONIA, COVID +STUDYCHEST x-ray, 1 VIEWCOMPARISONX-ray 12/12/2019FINDINGSBilateral lung infiltrates are unchanged. Heart is probably normal in size. Small pleural effusions may be present. No pneumothorax is seen.IMPRESSIONAppearance of the chest is unchanged.Electronically signed by: Bunny Slaughter (Dec 15, 2019 09:54:04)
[2019-12-15] MEDS: SNACK - Diabetic Appropriate PO SCH (19:56)
[2019-12-15] MEDS: COLACE CAP 100 MG PO SCH (21:15)
[2019-12-15] MEDS: ZITHROMAX INJ 500 MG VIAL 500 MG in NS 250 ML IV 250 ML IV SCH (21:22)
[2019-12-15] MEDS: HumuLIN R SC PRN (21:34)
[2019-12-16] MEDS: XOPENEX 1.25 MG/3 ML NEBULE NEB SCH ×4 (00:50→17:10)
[2019-12-16] MEDS: NORCO 5/325 MG TAB PO PRN ×2 (04:07→12:32)
[2019-12-16] MEDS: ASCORBIC ACID INJ MULTI-DOSE VIAL 1,500 MG in NS 100 ML IV 100 ML IV SCH ×4 (05:45→23:25)
[2019-12-16] MEDS: NS 1000 ML 1,000 ML IV SCH (05:45)
[2019-12-16] MEDS: SOLU-Medrol 125 MG VIAL IVP SCH ×3 (05:45→21:30)
[2019-12-16] MEDS: HumuLIN R SC PRN ×4 (06:09→21:15)
[2019-12-16] MEDS: MAG-OX TAB PO SCH ×2 (06:09→16:05)
[2019-12-16 06:21] LABS: BASOPHILS % (AUTO) 0.2 % (0.2-1.0); HEMATOCRIT 32.8 % (36.0-47.0); LYMPHOCYTES # (AUTO) 0.6 X10^3/uL (1.3-2.9); LYMPHOCYTES % (AUTO) 5.7 % (21.0-51.0); MEAN CORPUSCULAR HEMOGLOBIN 29.8 pg (27.0-34.0); MEAN CORPUSCULAR HGB CONC 33.7 g/dL (33.0-35.0); MEAN CORPUSCULAR VOLUME 88.5 fL (80.0-100.0); MEAN PLATELET VOLUME 7.8 fL (7.4-11.0); MONOCYTES # (AUTO) 0.3 x10^3/uL (0.3-0.8); NEUTROPHILS # (AUTO) 9.4 x10^3/uL (2.2-4.8); NEUTROPHILS % (AUTO) 91.1 % (42.0-75.0); PLATELET COUNT 252 X10^3/uL (150.0-450.0); RED BLOOD COUNT 3.71 X10^6/uL (3.5-5.4); WHITE BLOOD COUNT 10.3 X10^3/uL (3.6-10.0)
[2019-12-16 06:26] LABS: ALANINE AMINOTRANSFERASE 30 Units/L (12-78); ALBUMIN 2.5 g/dL (3.4-5.0); ALKALINE PHOSPHATASE 128 Units/L (46-116); ASPARTATE AMINO TRANSFERASE 19 Units/L (15-37); BLOOD UREA NITROGEN 15 mg/dL (7-18); CARBON DIOXIDE 28.2 mmol/L (21-32); CHLORIDE 99 mmol/L (98-107); COR CA(FOR HYPOALB) 10.2 mg/dL (8.5-10.1); COR NA(FOR HYPERGLY) 143 mmol/L (136-145); CREATININE 0.79 mg/dL (0.55-1.02); SODIUM 137 mmol/L (136-145); TOTAL PROTEIN 7.3 g/dL (6.4-8.2); eGFR NON BLACK RACES > 60 (>60)
[2019-12-16 06:58] LABS: PLATELET MORPHOLOGY COMMENT NORMAL (NORMAL)
[2019-12-16] MEDS ORDERED: ZESTRIL TAB 20 MG ONE (09:17)
[2019-12-16] MEDS: FLONASE NASAL SPRAY ENOSTRIL SCH ×2 (09:23→21:20)
[2019-12-16] MEDS: ELIQUIS PO SCH ×2 (09:23→21:20)
[2019-12-16] MEDS: PEPCID 20 MG IV PREMIX* 20 MG/50 ML BAG IV SCH (09:24)
[2019-12-16] MEDS: LANTUS SC SCH (09:24)
[2019-12-16] MEDS: PROTONIX INJ 40 MG VIAL IVP SCH (09:25)
[2019-12-16] MEDS: ROBITUSSIN DM PO SCH ×4 (09:25→21:20)
[2019-12-16] MEDS: TRICOR TAB 160 MG PO SCH (09:25)
[2019-12-16] MEDS: VITAMIN A PO SCH (09:25)
[2019-12-16] MEDS: ZESTRIL TAB 20 MG PO SCH (09:26)
[2019-12-16] MEDS: ZINC SULFATE PO SCH ×2 (09:26→21:20)
[2019-12-16] MEDS: VITAMIN D3 125 mcg (5,000 UNITS) PO SCH (09:26)
[2019-12-16] MEDS: ZOLOFT PO SCH (09:27)
[2019-12-16] MEDS: SNACK - Diabetic Appropriate PO SCH (20:16)
[2019-12-16] MEDS: COLACE CAP 100 MG PO SCH (21:20)
[2019-12-16] MEDS: ATIVAN INJ 2 MG VIAL IVP PRN (21:32)
[2019-12-16] MEDS: ZITHROMAX INJ 500 MG VIAL 500 MG in NS 250 ML IV 250 ML IV SCH (21:35)
[2019-12-17] MEDS: XOPENEX 1.25 MG/3 ML NEBULE NEB SCH ×4 (00:55→16:40)
[2019-12-17] MEDS: ULTRAM PO PRN (02:47)
[2019-12-17] MEDS: NORCO 5/325 MG TAB PO PRN ×3 (04:17→23:45)
[2019-12-17 05:16] LABS: BASOPHILS % (AUTO) 0.2 % (0.2-1.0); HEMATOCRIT 31.7 % (36.0-47.0); HEMOGLOBIN 10.6 g/dL (12.0-16.0); LYMPHOCYTES # (AUTO) 0.5 X10^3/uL (1.3-2.9); LYMPHOCYTES % (AUTO) 6.2 % (21.0-51.0); MEAN CORPUSCULAR HEMOGLOBIN 29.8 pg (27.0-34.0); MEAN CORPUSCULAR HGB CONC 33.4 g/dL (33.0-35.0); MEAN CORPUSCULAR VOLUME 89.4 fL (80.0-100.0); MEAN PLATELET VOLUME 8.1 fL (7.4-11.0); MONOCYTES # (AUTO) 0.3 x10^3/uL (0.3-0.8); MONOCYTES % (AUTO) 3.2 % (0.0-13.0); NEUTROPHILS # (AUTO) 7.9 x10^3/uL (2.2-4.8); NEUTROPHILS % (AUTO) 90.4 % (42.0-75.0); PLATELET COUNT 275 X10^3/uL (150.0-450.0); RED BLOOD COUNT 3.54 X10^6/uL (3.5-5.4); RED CELL DISTRIBUTION WIDTH 14.9 % (11.6-16.5); WHITE BLOOD COUNT 8.8 X10^3/uL (3.6-10.0)
[2019-12-17 05:41] LABS: ALANINE AMINOTRANSFERASE 34 Units/L (12-78); ALBUMIN 2.5 g/dL (3.4-5.0); ALKALINE PHOSPHATASE 111 Units/L (46-116); ASPARTATE AMINO TRANSFERASE 23 Units/L (15-37); BLOOD UREA NITROGEN 17 mg/dL (7-18); CALCIUM 8.7 mg/dL (8.5-10.1); CARBON DIOXIDE 31.2 mmol/L (21-32); CHLORIDE 100 mmol/L (98-107); COR CA(FOR HYPOALB) 9.9 mg/dL (8.5-10.1); COR NA(FOR HYPERGLY) 141 mmol/L (136-145); CREATININE 0.79 mg/dL (0.55-1.02); SODIUM 136 mmol/L (136-145); TOTAL PROTEIN 7.1 g/dL (6.4-8.2); eGFR NON BLACK RACES > 60 (>60)
[2019-12-17] MEDS: SOLU-Medrol 125 MG VIAL IVP SCH ×3 (05:50→21:00)
[2019-12-17] MEDS: ASCORBIC ACID INJ MULTI-DOSE VIAL 1,500 MG in NS 100 ML IV 100 ML IV SCH (05:50)
[2019-12-17] MEDS: NS 1000 ML 1,000 ML IV SCH (05:50)
[2019-12-17] MEDS: HumuLIN R SC PRN ×4 (06:00→21:05)
[2019-12-17] MEDS: MAG-OX TAB PO SCH ×2 (06:06→17:35)
[2019-12-17 06:08] LABS: PLATELET MORPHOLOGY COMMENT NORMAL (NORMAL)
[2019-12-17] MEDS ORDERED: ZESTRIL TAB 20 MG ONE (09:24)
[2019-12-17] MEDS: ELIQUIS PO SCH ×2 (09:32→20:45)
[2019-12-17] MEDS: PEPCID 20 MG IV PREMIX* 20 MG/50 ML BAG IV SCH (09:32)
[2019-12-17] MEDS: FLONASE NASAL SPRAY ENOSTRIL SCH ×2 (09:32→20:45)
[2019-12-17] MEDS: PROTONIX INJ 40 MG VIAL IVP SCH (09:33)
[2019-12-17] MEDS: TRICOR TAB 160 MG PO SCH (09:33)
[2019-12-17] MEDS: ROBITUSSIN DM PO SCH ×4 (09:33→20:45)
[2019-12-17] MEDS: VITAMIN D3 125 mcg (5,000 UNITS) PO SCH (09:34)
[2019-12-17] MEDS: ZESTRIL TAB 20 MG PO SCH (09:34)
[2019-12-17] MEDS: VITAMIN A PO SCH (09:34)
[2019-12-17] MEDS: ZOLOFT PO SCH (09:35)
[2019-12-17] MEDS: ZINC SULFATE PO SCH ×2 (09:35→20:45)
[2019-12-17] MEDS: LANTUS SC SCH (09:35)
[2019-12-17 09:41] LABS: ABG BASE EXCESS 9.5 mmol/L (-2.0-2.0)
[2019-12-17 09:43] LABS: ABG HCO3 34.8 mmol/L (22-26)
[2019-12-17 09:46] LABS: ABG ALLEN TEST POS
[2019-12-17 10:16] LABS: ABG BASE EXCESS 7.8 mmol/L (-2.0-2.0)
[2019-12-17 10:17] LABS: ABG HCO3 32.7 mmol/L (22-26)
[2019-12-17] MEDS: SNACK - Diabetic Appropriate PO SCH (19:12)
[2019-12-17] MEDS ORDERED: VITAMIN C ONE (19:48)
[2019-12-17] MEDS ORDERED: SOLU-Medrol 125 MG VIAL ONE (19:48)
[2019-12-17] MEDS: VITAMIN C PO SCH (20:45)
[2019-12-17] MEDS: COLACE CAP 100 MG PO SCH (20:45)
[2019-12-17] MEDS: ATIVAN INJ 2 MG VIAL IVP PRN (20:50)
[2019-12-17] MEDS: ZITHROMAX INJ 500 MG VIAL 500 MG in NS 250 ML IV 250 ML IV SCH (21:00)
[2019-12-18] MEDS: XOPENEX 1.25 MG/3 ML NEBULE NEB SCH ×4 (02:19→17:20)
[2019-12-18] MEDS: SOLU-Medrol 125 MG VIAL IVP SCH ×3 (05:15→21:15)
[2019-12-18] MEDS: NS 1000 ML 1,000 ML IV SCH (05:15)
[2019-12-18] MEDS: HumuLIN R SC PRN ×4 (06:18→20:50)
[2019-12-18] MEDS: MAG-OX TAB PO SCH ×2 (06:18→17:36)
[2019-12-18 08:51] LABS: BASOPHILS % (AUTO) 0.3 % (0.2-1.0); EOSINOPHILS % (AUTO) 0.1 % (0.9-2.9); HEMOGLOBIN 11.4 g/dL (12.0-16.0); LYMPHOCYTES # (AUTO) 0.5 X10^3/uL (1.3-2.9); LYMPHOCYTES % (AUTO) 4.9 % (21.0-51.0); MEAN CORPUSCULAR HEMOGLOBIN 29.8 pg (27.0-34.0); MEAN CORPUSCULAR HGB CONC 33.6 g/dL (33.0-35.0); MEAN CORPUSCULAR VOLUME 88.7 fL (80.0-100.0); MEAN PLATELET VOLUME 8.2 fL (7.4-11.0); MONOCYTES # (AUTO) 0.3 x10^3/uL (0.3-0.8); NEUTROPHILS # (AUTO) 10.1 x10^3/uL (2.2-4.8); NEUTROPHILS % (AUTO) 91.7 % (42.0-75.0); PLATELET COUNT 256 X10^3/uL (150.0-450.0); RED BLOOD COUNT 3.83 X10^6/uL (3.5-5.4); RED CELL DISTRIBUTION WIDTH 14.8 % (11.6-16.5); WHITE BLOOD COUNT 11.1 X10^3/uL (3.6-10.0)
[2019-12-18 09:02] LABS: ALANINE AMINOTRANSFERASE 35 Units/L (12-78); ALBUMIN 2.8 g/dL (3.4-5.0); ALKALINE PHOSPHATASE 109 Units/L (46-116); ASPARTATE AMINO TRANSFERASE 17 Units/L (15-37); BLOOD UREA NITROGEN 21 mg/dL (7-18); CALCIUM 9.1 mg/dL (8.5-10.1); CARBON DIOXIDE 31.5 mmol/L (21-32); CHLORIDE 101 mmol/L (98-107); COR CA(FOR HYPOALB) 10.1 mg/dL (8.5-10.1); COR NA(FOR HYPERGLY) 141 mmol/L (136-145); CREATININE 0.77 mg/dL (0.55-1.02); SODIUM 138 mmol/L (136-145); TOTAL PROTEIN 7.4 g/dL (6.4-8.2); eGFR NON BLACK RACES > 60 (>60)
[2019-12-18] MEDS ORDERED: ZESTRIL TAB 20 MG ONE (09:26)
[2019-12-18] MEDS: LANTUS SC SCH (09:42)
[2019-12-18] MEDS: ELIQUIS PO SCH ×2 (09:42→20:50)
[2019-12-18] MEDS: FLONASE NASAL SPRAY ENOSTRIL SCH ×2 (09:42→20:50)
[2019-12-18] MEDS: PEPCID 20 MG IV PREMIX* 20 MG/50 ML BAG IV SCH (09:43)
[2019-12-18] MEDS: PROTONIX INJ 40 MG VIAL IVP SCH (09:43)
[2019-12-18] MEDS: ROBITUSSIN DM PO SCH ×4 (09:44→20:50)
[2019-12-18] MEDS: TRICOR TAB 160 MG PO SCH (09:44)
[2019-12-18] MEDS: VITAMIN A PO SCH (09:44)
[2019-12-18] MEDS: NORCO 5/325 MG TAB PO PRN ×2 (09:45→22:26)
[2019-12-18] MEDS: VITAMIN C PO SCH ×2 (09:45→20:50)
[2019-12-18] MEDS: ZINC SULFATE PO SCH ×2 (09:45→20:50)
[2019-12-18] MEDS: VITAMIN D3 125 mcg (5,000 UNITS) PO SCH (09:45)
[2019-12-18] MEDS: ZESTRIL TAB 20 MG PO SCH (09:45)
[2019-12-18] MEDS: ZOLOFT PO SCH (09:46)
--- NOTE | 2019-12-18 14:26 | RAD ---
HISTORYPNEUMONIA, COVID +STUDYCHEST, 1 VIEWCOMPARISONOctober 2019FINDINGSThe patient is rotated. The cardiac silhouette is enlarged. Patchy infiltrate is demonstrated bilaterally left greater than right most pronounced within the left lower lobe. No significant interval improvement is appreciated since prior exam.IMPRESSIONCardiomegaly.Persistent bilateral infiltrate as noted above.Electronically signed by: VINOD COSTELLO (Dec 18, 2019 14:26:33)
[2019-12-18] MEDS ORDERED: MILK OF MAGNESIA PO SCH (16:00)
[2019-12-18] MEDS: SNACK - Diabetic Appropriate PO SCH (20:00)
[2019-12-18] MEDS: MIRALAX POWDER (1 DOSE 17 G) PO SCH (20:50)
[2019-12-18] MEDS: COLACE CAP 100 MG PO SCH (20:50)
[2019-12-18] MEDS: ZITHROMAX INJ 500 MG VIAL 500 MG in NS 250 ML IV 250 ML IV SCH (21:15)
[2019-12-18] MEDS: MILK OF MAGNESIA PO SCH (22:23)
[2019-12-19] MEDS: XOPENEX 1.25 MG/3 ML NEBULE NEB SCH ×4 (00:45→17:15)
[2019-12-19] MEDS: ULTRAM PO PRN (04:25)
[2019-12-19 05:09] LABS: BASOPHILS % (AUTO) 0.3 % (0.2-1.0); EOSINOPHILS % (AUTO) 0.1 % (0.9-2.9); HEMATOCRIT 31.3 % (36.0-47.0); HEMOGLOBIN 10.7 g/dL (12.0-16.0); LYMPHOCYTES # (AUTO) 0.9 X10^3/uL (1.3-2.9); LYMPHOCYTES % (AUTO) 9.7 % (21.0-51.0); MEAN CORPUSCULAR HEMOGLOBIN 30.2 pg (27.0-34.0); MEAN CORPUSCULAR HGB CONC 34.3 g/dL (33.0-35.0); MEAN CORPUSCULAR VOLUME 88.1 fL (80.0-100.0); MEAN PLATELET VOLUME 7.6 fL (7.4-11.0); MONOCYTES # (AUTO) 0.5 x10^3/uL (0.3-0.8); MONOCYTES % (AUTO) 5.6 % (0.0-13.0); NEUTROPHILS # (AUTO) 7.7 x10^3/uL (2.2-4.8); NEUTROPHILS % (AUTO) 84.3 % (42.0-75.0); PLATELET COUNT 320 X10^3/uL (150.0-450.0); RED BLOOD COUNT 3.56 X10^6/uL (3.5-5.4); RED CELL DISTRIBUTION WIDTH 14.7 % (11.6-16.5); WHITE BLOOD COUNT 9.2 X10^3/uL (3.6-10.0)
[2019-12-19 05:15] LABS: ALANINE AMINOTRANSFERASE 35 Units/L (12-78); ALBUMIN 2.7 g/dL (3.4-5.0); ALKALINE PHOSPHATASE 105 Units/L (46-116); ASPARTATE AMINO TRANSFERASE 13 Units/L (15-37); BLOOD UREA NITROGEN 20 mg/dL (7-18); CARBON DIOXIDE 31.6 mmol/L (21-32); CHLORIDE 99 mmol/L (98-107); COR NA(FOR HYPERGLY) 141 mmol/L (136-145); CREATININE 0.77 mg/dL (0.55-1.02); SODIUM 137 mmol/L (136-145); TOTAL PROTEIN 7.1 g/dL (6.4-8.2); eGFR NON BLACK RACES > 60 (>60)
[2019-12-19] MEDS: SOLU-Medrol 125 MG VIAL IVP SCH ×3 (06:15→21:15)
[2019-12-19] MEDS: NS 1000 ML 1,000 ML IV SCH (06:16)
[2019-12-19] MEDS: HumuLIN R SC PRN ×4 (06:19→20:25)
[2019-12-19] MEDS: MAG-OX TAB PO SCH ×2 (06:20→17:25)
[2019-12-19] MEDS ORDERED: ZESTRIL TAB 20 MG ONE (09:26)
[2019-12-19] MEDS: FLONASE NASAL SPRAY ENOSTRIL SCH ×2 (09:36→20:25)
[2019-12-19] MEDS: PEPCID 20 MG IV PREMIX* 20 MG/50 ML BAG IV SCH (09:36)
[2019-12-19] MEDS: ZESTRIL TAB 20 MG PO SCH (09:37)
[2019-12-19] MEDS: PROTONIX INJ 40 MG VIAL IVP SCH (09:37)
[2019-12-19] MEDS: ROBITUSSIN DM PO SCH ×4 (09:37→20:25)
[2019-12-19] MEDS: ZINC SULFATE PO SCH ×2 (09:38→20:25)
[2019-12-19] MEDS: ZOLOFT PO SCH (09:38)
[2019-12-19] MEDS: VITAMIN C PO SCH ×2 (09:39→20:25)
[2019-12-19] MEDS: VITAMIN D3 125 mcg (5,000 UNITS) PO SCH (09:39)
[2019-12-19] MEDS: TRICOR TAB 160 MG PO SCH (09:39)
[2019-12-19] MEDS: VITAMIN A PO SCH (09:40)
[2019-12-19] MEDS: NORCO 5/325 MG TAB PO PRN ×2 (09:40→20:25)
[2019-12-19] MEDS: LANTUS SC SCH (10:00)
[2019-12-19] MEDS: MILK OF MAGNESIA PO SCH ×2 (12:09→21:11)
[2019-12-19] MEDS: MIRALAX POWDER (1 DOSE 17 G) PO SCH (20:25)
[2019-12-19] MEDS: SNACK - Diabetic Appropriate PO SCH (20:25)
[2019-12-19] MEDS: COLACE CAP 100 MG PO SCH (20:25)
[2019-12-19] MEDS: ZITHROMAX INJ 500 MG VIAL 500 MG in NS 250 ML IV 250 ML IV SCH (21:15)
[2019-12-20] MEDS: XOPENEX 1.25 MG/3 ML NEBULE NEB SCH ×4 (00:35→17:15)
[2019-12-20] MEDS: NS 1000 ML 1,000 ML IV SCH ×2 (04:01→06:00)
[2019-12-20 05:40] LABS: BASOPHILS % (AUTO) 0.2 % (0.2-1.0); EOSINOPHILS % (AUTO) 0.2 % (0.9-2.9); HEMATOCRIT 32.8 % (36.0-47.0); HEMOGLOBIN 11.3 g/dL (12.0-16.0); LYMPHOCYTES % (AUTO) 9.9 % (21.0-51.0); MEAN CORPUSCULAR HEMOGLOBIN 30.5 pg (27.0-34.0); MEAN CORPUSCULAR HGB CONC 34.4 g/dL (33.0-35.0); MEAN CORPUSCULAR VOLUME 88.7 fL (80.0-100.0); MEAN PLATELET VOLUME 7.8 fL (7.4-11.0); MONOCYTES # (AUTO) 0.3 x10^3/uL (0.3-0.8); MONOCYTES % (AUTO) 3.1 % (0.0-13.0); NEUTROPHILS # (AUTO) 8.4 x10^3/uL (2.2-4.8); NEUTROPHILS % (AUTO) 86.6 % (42.0-75.0); PLATELET COUNT 356 X10^3/uL (150.0-450.0); RED BLOOD COUNT 3.69 X10^6/uL (3.5-5.4); RED CELL DISTRIBUTION WIDTH 14.7 % (11.6-16.5); WHITE BLOOD COUNT 9.7 X10^3/uL (3.6-10.0)
[2019-12-20 05:49] LABS: ALANINE AMINOTRANSFERASE 42 Units/L (12-78); ALBUMIN 2.8 g/dL (3.4-5.0); ALKALINE PHOSPHATASE 100 Units/L (46-116); ASPARTATE AMINO TRANSFERASE 23 Units/L (15-37); BLOOD UREA NITROGEN 17 mg/dL (7-18); CALCIUM 9.1 mg/dL (8.5-10.1); CARBON DIOXIDE 32.4 mmol/L (21-32); CHLORIDE 102 mmol/L (98-107); COR CA(FOR HYPOALB) 10.1 mg/dL (8.5-10.1); CREATININE 0.72 mg/dL (0.55-1.02); SODIUM 140 mmol/L (136-145); TOTAL PROTEIN 7.3 g/dL (6.4-8.2); eGFR NON BLACK RACES > 60 (>60)
[2019-12-20] MEDS: SOLU-Medrol 125 MG VIAL IVP SCH ×2 (06:00→14:28)
[2019-12-20 06:04] LABS: BAND NEUTROPHILS % 2 % (0-10); PLATELET MORPHOLOGY COMMENT NORMAL (NORMAL)
[2019-12-20] MEDS: MAG-OX TAB PO SCH ×2 (06:10→18:15)
[2019-12-20] MEDS ORDERED: ZESTRIL TAB 20 MG ONE (10:27)
[2019-12-20] MEDS: PEPCID 20 MG IV PREMIX* 20 MG/50 ML BAG IV SCH (10:34)
[2019-12-20] MEDS: PROTONIX INJ 40 MG VIAL IVP SCH (10:35)
[2019-12-20] MEDS: ZOLOFT PO SCH (10:37)
[2019-12-20] MEDS: VITAMIN D3 125 mcg (5,000 UNITS) PO SCH (10:38)
[2019-12-20] MEDS: ZINC SULFATE PO SCH ×2 (10:38→20:00)
[2019-12-20] MEDS: VITAMIN C PO SCH ×2 (10:38→20:00)
[2019-12-20] MEDS: ZESTRIL TAB 20 MG PO SCH (10:39)
[2019-12-20] MEDS: TRICOR TAB 160 MG PO SCH (10:39)
[2019-12-20] MEDS: MILK OF MAGNESIA PO SCH ×2 (10:40→20:00)
[2019-12-20] MEDS: ROBITUSSIN DM PO SCH ×4 (10:40→20:00)
[2019-12-20] MEDS: LANTUS SC SCH (10:41)
[2019-12-20] MEDS: FLONASE NASAL SPRAY ENOSTRIL SCH ×2 (10:43→20:00)
[2019-12-20] MEDS: ELIQUIS PO SCH ×2 (10:43→20:00)
[2019-12-20] MEDS: VITAMIN A PO SCH (10:43)
[2019-12-20] MEDS: HumuLIN R SC PRN ×4 (11:51→20:35)
[2019-12-20] MEDS ORDERED: SOLU-Medrol 40 MG VIAL ONE (14:27)
[2019-12-20] MEDS ORDERED: ROBITUSSIN DM ONE (14:27)
[2019-12-20] MEDS ORDERED: ATIVAN TAB 0.5 MG PO PRN (18:02)
[2019-12-20] MEDS: NORCO 5/325 MG TAB PO PRN (19:00)
[2019-12-20] MEDS: COLACE CAP 100 MG PO SCH (20:00)
[2019-12-20] MEDS: SNACK - Diabetic Appropriate PO SCH (20:00)
[2019-12-20] MEDS: MIRALAX POWDER (1 DOSE 17 G) PO SCH (20:00)
[2019-12-20] MEDS: ZITHROMAX INJ 500 MG VIAL 500 MG in NS 250 ML IV 250 ML IV SCH (21:22)
[2019-12-21] MEDS: XOPENEX 1.25 MG/3 ML NEBULE NEB SCH ×4 (00:45→17:25)
[2019-12-21 05:14] LABS: BASOPHILS % (AUTO) 0.3 % (0.2-1.0); EOSINOPHILS % (AUTO) 0.4 % (0.9-2.9); HEMATOCRIT 33.2 % (36.0-47.0); LYMPHOCYTES # (AUTO) 2.8 X10^3/uL (1.3-2.9); LYMPHOCYTES % (AUTO) 23.9 % (21.0-51.0); MEAN CORPUSCULAR HEMOGLOBIN 29.9 pg (27.0-34.0); MEAN CORPUSCULAR HGB CONC 33.1 g/dL (33.0-35.0); MEAN CORPUSCULAR VOLUME 90.2 fL (80.0-100.0); MEAN PLATELET VOLUME 7.9 fL (7.4-11.0); MONOCYTES # (AUTO) 0.9 x10^3/uL (0.3-0.8); MONOCYTES % (AUTO) 7.8 % (0.0-13.0); NEUTROPHILS # (AUTO) 7.9 x10^3/uL (2.2-4.8); NEUTROPHILS % (AUTO) 67.6 % (42.0-75.0); PLATELET COUNT 420 X10^3/uL (150.0-450.0); RED BLOOD COUNT 3.69 X10^6/uL (3.5-5.4); RED CELL DISTRIBUTION WIDTH 15.3 % (11.6-16.5); WHITE BLOOD COUNT 11.7 X10^3/uL (3.6-10.0)
[2019-12-21 05:23] LABS: ALANINE AMINOTRANSFERASE 52 Units/L (12-78); ALBUMIN 2.8 g/dL (3.4-5.0); ALKALINE PHOSPHATASE 93 Units/L (46-116); ASPARTATE AMINO TRANSFERASE 19 Units/L (15-37); BLOOD UREA NITROGEN 22 mg/dL (7-18); CALCIUM 9.2 mg/dL (8.5-10.1); CARBON DIOXIDE 31.7 mmol/L (21-32); CHLORIDE 104 mmol/L (98-107); COR CA(FOR HYPOALB) 10.2 mg/dL (8.5-10.1); CREATININE 0.87 mg/dL (0.55-1.02); SODIUM 142 mmol/L (136-145); eGFR NON BLACK RACES > 60 (>60)
--- NOTE | 2019-12-21 06:04 | RAD ---
HISTORYFollow-up pneumoniaSTUDYChest AP [id number]/08/2020FINDINGSHypo inflation accentuates the heart size. The heart is likely still mildly enlarged. Bilateral interstitial and ground-glass infiltrates are unchanged. No pleural effusions are identified. Bony thorax is unremarkable.IMPRESSIONNo change bilateral interstitial and ground-glass infiltratesElectronically signed by: KATHLEEN VAZQUEZ (Dec 21, 2019 06:04:27)
[2019-12-21] MEDS: NS 1000 ML 1,000 ML IV SCH (06:15)
[2019-12-21] MEDS: NORCO 5/325 MG TAB PO PRN ×2 (06:16→20:50)
[2019-12-21] MEDS: MAG-OX TAB PO SCH ×2 (06:18→17:56)
[2019-12-21] MEDS ORDERED: ZESTRIL TAB 20 MG ONE (09:04)
[2019-12-21] MEDS: LANTUS SC SCH (09:16)
[2019-12-21] MEDS: ELIQUIS PO SCH ×2 (09:18→20:50)
[2019-12-21] MEDS: FLONASE NASAL SPRAY ENOSTRIL SCH ×2 (09:18→20:50)
[2019-12-21] MEDS: MILK OF MAGNESIA PO SCH ×2 (09:19→20:50)
[2019-12-21] MEDS: ROBITUSSIN DM PO SCH ×4 (09:19→20:50)
[2019-12-21] MEDS: PROTONIX TAB 40 MG PO SCH (09:19)
[2019-12-21] MEDS: SOLU-Medrol 125 MG VIAL IVP SCH ×2 (09:20→20:50)
[2019-12-21] MEDS: VITAMIN C PO SCH ×2 (09:20→20:50)
[2019-12-21] MEDS: ZINC SULFATE PO SCH ×2 (09:21→20:50)
[2019-12-21] MEDS: VITAMIN D3 125 mcg (5,000 UNITS) PO SCH (09:21)
[2019-12-21] MEDS: ZESTRIL TAB 20 MG PO SCH (09:22)
[2019-12-21] MEDS: ZOLOFT PO SCH (09:22)
[2019-12-21] MEDS: TRICOR TAB 160 MG PO SCH (09:24)
[2019-12-21] MEDS: VITAMIN A PO SCH (09:24)
[2019-12-21] MEDS: MAALOX or MYLANTA ONE ×2 (10:37→10:41)
[2019-12-21 14:37] LABS: ABG BASE EXCESS 9.2 mmol/L (-2.0-2.0); ABG HCO3 34.2 mmol/L (22-26)
[2019-12-21 14:38] LABS: ABG ALLEN TEST POS
[2019-12-21] MEDS: MIRALAX POWDER (1 DOSE 17 G) PO SCH (20:50)
[2019-12-21] MEDS: SNACK - Diabetic Appropriate PO SCH (20:50)
[2019-12-21] MEDS: COLACE CAP 100 MG PO SCH (20:50)
[2019-12-21] MEDS: ZITHROMAX INJ 500 MG VIAL 500 MG in NS 250 ML IV 250 ML IV SCH (21:15)
[2019-12-22] MEDS: XOPENEX 1.25 MG/3 ML NEBULE NEB SCH ×4 (05:02→15:58)
[2019-12-22 05:25] LABS: BASOPHILS % (AUTO) 0.1 % (0.2-1.0); EOSINOPHILS % (AUTO) 0.3 % (0.9-2.9); HEMATOCRIT 31.1 % (36.0-47.0); HEMOGLOBIN 10.5 g/dL (12.0-16.0); LYMPHOCYTES # (AUTO) 0.8 X10^3/uL (1.3-2.9); LYMPHOCYTES % (AUTO) 10.1 % (21.0-51.0); MEAN CORPUSCULAR HEMOGLOBIN 30.5 pg (27.0-34.0); MEAN CORPUSCULAR HGB CONC 33.7 g/dL (33.0-35.0); MEAN CORPUSCULAR VOLUME 90.3 fL (80.0-100.0); MEAN PLATELET VOLUME 7.9 fL (7.4-11.0); MONOCYTES # (AUTO) 0.2 x10^3/uL (0.3-0.8); MONOCYTES % (AUTO) 2.9 % (0.0-13.0); NEUTROPHILS # (AUTO) 7.1 x10^3/uL (2.2-4.8); NEUTROPHILS % (AUTO) 86.6 % (42.0-75.0); PLATELET COUNT 374 X10^3/uL (150.0-450.0); RED BLOOD COUNT 3.44 X10^6/uL (3.5-5.4); RED CELL DISTRIBUTION WIDTH 15.2 % (11.6-16.5); WHITE BLOOD COUNT 8.2 X10^3/uL (3.6-10.0)
[2019-12-22 05:39] LABS: ALANINE AMINOTRANSFERASE 48 Units/L (12-78); ALBUMIN 2.6 g/dL (3.4-5.0); ALKALINE PHOSPHATASE 94 Units/L (46-116); ASPARTATE AMINO TRANSFERASE 21 Units/L (15-37); BLOOD UREA NITROGEN 23 mg/dL (7-18); CALCIUM 8.9 mg/dL (8.5-10.1); CARBON DIOXIDE 29.7 mmol/L (21-32); CHLORIDE 103 mmol/L (98-107); COR NA(FOR HYPERGLY) 142 mmol/L (136-145); SODIUM 138 mmol/L (136-145); TOTAL PROTEIN 6.8 g/dL (6.4-8.2); eGFR NON BLACK RACES > 60 (>60)
[2019-12-22] MEDS: HumuLIN R SC PRN ×3 (06:27→20:45)
[2019-12-22] MEDS: NS 1000 ML 1,000 ML IV SCH (06:27)
[2019-12-22] MEDS: MAG-OX TAB PO SCH ×2 (06:29→17:45)
[2019-12-22] MEDS ORDERED: ZESTRIL TAB 20 MG ONE (07:41)
--- NOTE | 2019-12-22 07:49 | PCM.PROG ---
Progress Note - Progress Note for Day of Date of Exam: 12/20/19 - Subjective Subjective: The patient is a 59-year-old black female who has had aggressive treatment for bilateral COVID-19 pneumonia with hypoxia. She require heated high flow supplemental oxygen. Attempt at present to decrease high flow has sat of 88%. States that she is easily winded with simple exertion. Denies productive cough. Chest x-ray is still showing bilateral pneumonia and persistent bilateral infiltrate as noted. States that she is using the incentive spirometry. Denies any complaints at present. - Past Medical Family Social History Past Med/Fam/Surg Hx: No changes since H&P Allergies: Allergies No Known Drug Allergies Allergy (Verified 03/12/19 17:18) - Review of Systems ROS: No change since H&P - Vital Signs and I&O's Vital Signs: Temperature 98.5 F Pulse Rate [Right Brachial] 101 Pulse Rate [Left Brachial] 98 Pulse Rate 107 Respiratory Rate 24 Blood Pressure [Right Arm] 114/58 Blood Pressure [Left Arm] 98/47 Blood Pressure 141/71 O2 Sat by Pulse Oximetry 95 Intake and Output: Intake & Output 12/19/19 12/20/19 12/21/19 12/22/19 23:59 23:59 23:59 23:59 Intake Total 3534 / 3534 2339 / 2339 2521 / 2521 655 / 655 Output Total 2350 / 2350 2850 / 2850 1200 / 1200 625 / 625 Balance 1184 / 1184 -511 / -511 1321 / 1321 30 / 30 - Physical Exam Oriented: Normal Eyes: Normal Ear: Normal Nose: Normal Throat: Normal Respiratory: Diminished Cardiovascular: Normal : Normal Auscultation: Bowel Sounds: Normal Tenderness: Normal Skin: Normal Musculoskeletal: Back:Lumbar Psychiatric: Normal Mood Description: Calm Affect: Quiet Speech Pattern: Clear, Appropriate - Laboratory and Diagnostics Result Diagrams: 12/22/19 05:00 12/22/19 05:00 Labs: 12/09/19 10:17 Blood Blood Culture - Final 12/09/19 10:10 Blood Blood Culture - Final 11/25/19 04:53 Blood Blood Culture - Final 11/25/19 04:58 Blood Blood Culture - Final 11/25/19 13:50 Urine,Clean Catch Urine Culture - Final Laboratory WBC 8.2 X10^3/uL (3.6-10.0) 12/22/19 05:00 RBC 3.44 X10^6/uL (3.5-5.4) L 12/22/19 05:00 Hgb 10.5 g/dL (12.0-16.0) L 12/22/19 05:00 Hct 31.1 % (36.0-47.0) L 12/22/19 05:00 MCV 90.3 fL (80.0-100.0) 12/22/19 05:00 MCH 30.5 pg (27.0-34.0) 12/22/19 05:00 MCHC 33.7 g/dL (33.0-35.0) 12/22/19 05:00 RDW 15.2 % (11.6-16.5) 12/22/19 05:00 Plt Count 374 X10^3/uL (150.0-450.0) 12/22/19 05:00 Plt Count Comment Adequate (ADEQUATE) 12/20/19 05:15 MPV 7.9 fL (7.4-11.0) 12/22/19 05:00 Neut % (Auto) 86.6 % (42.0-75.0) H 12/22/19 05:00 Lymph % (Auto) 10.1 % (21.0-51.0) L 12/22/19 05:00 [place] % (Auto) 2.9 % (0.0-13.0) 12/22/19 05:00 Eos % (Auto) 0.3 % (0.9-2.9) L 12/22/19 05:00 Baso % (Auto) 0.1 % (0.2-1.0) L 12/22/19 05:00 Neut # (Auto) 7.1 x10^3/uL (2.2-4.8) H 12/22/19 05:00 Lymph # (Auto) 0.8 X10^3/uL (1.3-2.9) L 12/22/19 05:00 [place]th[place]w # (Auto) 0.2 x10^3/uL (0.3-0.8) L 12/22/19 05:00 Eos # (Auto) 0.0 x10^3/uL (0.0-0.2) 12/22/19 05:00 Baso # (Auto) 0.0 X10^3/uL (0.0-0.1) 12/22/19 05:00 Absolute Nucleated RBC 0.1 /100WBC 12/22/19 05:00 Total Counted 100 12/20/19 05:15 Neutrophils % (Manual) 89 % (39-76) H 12/20/19 05:15 Band Neutrophils % 2 % (0-10) 12/20/19 05:15 Lymphocytes % (Manual) 7 % (13-43) L 12/20/19 05:15 Monocytes % (Manual) 2 % (4-9) L 12/20/19 05:15 Eosinophils % (Manual) 2 % (0-6) 12/15/19 05:40 Plt Morphology Comment Normal (NORMAL) 12/20/19 05:15 RBC Morphology Normal (NORMAL) 12/20/19 05:15 ESR 67 MM/HOUR (0-20) H 12/11/19 05:24 PT 29.7 SECONDS (11.8-14.3) 11/29/19 01:41 INR Target Range - 11/29/19 01:41 INR 2.93 (0.8-1.3) H 11/29/19 01:41 APTT 133.2 SECONDS (22.9-36.5) H 12/12/19 09:38 PTT Comment - 12/12/19 09:38 D-Dimer 0.45 ug/ml (0.0-0.57) 11/28/19 17:18 Sample Site Lr 12/21/19 14:31 ABG pH 7.470 (7.35-7.45) H 12/21/19 14:31 ABG pCO2 47.0 mmHg (35.0-45.0) H 12/21/19 14:31 ABG pO2 55.0 mmHg (80.0-100.0) L 12/21/19 14:31 ABG HCO3 34.2 mmol/L (22-26) H* 12/21/19 14:31 ABG O2 Saturation 90.0 % (90-100) 12/21/19 14:31 ABG Base Excess 9.2 mmol/L (-2.0-2.0) H 12/21/19 14:31 Willy Test Pos 12/21/19 14:31 A-a Gradient 93.0 mmHg 12/21/19 14:31 FiO2 29.0 12/21/19 14:31 Blood Gas Comments Pt al [facility] 12/21/19 14:31 Sodium 138 mmol/L (136-145) 12/22/19 05:00 Corrected Sodium 142 mmol/L (136-145) 12/22/19 05:00 Potassium 5.1 mmol/L (3.5-5.1) 12/22/19 05:00 Chloride 103 mmol/L (98-107) 12/22/19 05:00 Carbon Dioxide 29.7 mmol/L (21-32) 12/22/19 05:00 BUN 23 mg/dL (7-18) H 12/22/19 05:00 Creatinine 0.90 mg/dL (0.55-1.02) 12/22/19 05:00 Est GFR (MDRD) Af Amer > 60 (>60) 12/22/19 05:00 Est GFR (MDRD) Non-Af > 60 (>60) 12/22/19 05:00 Glucose 275 mg/dL (65-99) H 12/22/19 05:00 POC Glucose (mg/dL) 240 mg/dL (65-99) H 12/22/19 05:24 Lactic Acid 0.9 mmol/L (0.4-2.0) 11/25/19 08:26 Calcium 8.9 mg/dL (8.5-10.1) 12/22/19 05:00 Corrected Calcium 10.0 mg/dL (8.5-10.1) 12/22/19 05:00 Magnesium 1.7 mg/dL (1.7-2.9) 12/08/19 04:57 Ferritin 345 ng/mL (8-252) H 11/28/19 04:49 Total Bilirubin 0.30 mg/dL (0.2-1.0) 12/22/19 05:00 AST 21 Units/L (15-37) 12/22/19 05:00 ALT 48 Units/L (12-78) 12/22/19 05:00 Alkaline Phosphatase 94 Units/L (46-116) 12/22/19 05:00 Creatine Kinase 35 Units/L (26-192) 12/09/19 10:10 CK-MB (CK-2) 1.2 ng/mL (0-4.0) 12/09/19 10:10 CK/CKMB % Calc 3.4 % (<4) 12/09/19 10:10 Troponin I < 0.02 ng/mL (0-1.5) 12/09/19 10:10 C-Reactive Protein 17.70 mg/L (0-3.0) H 12/12/19 03:11 Total Protein 6.8 g/dL (6.4-8.2) 12/22/19 05:00 Albumin 2.6 g/dL (3.4-5.0) L 12/22/19 05:00 Globulin 4.2 g/dL (2.5-4.5) 12/22/19 05:00 Albumin/Globulin Ratio 0.6 Ratio (1.1-2.1) L 12/22/19 05:00 Specimen Type Catherized urine 11/29/19 05:53 Urine Color Yellow (YELLOW) 11/29/19 05:53 Urine Appearance Clear (CLEAR) 11/29/19 05:53 Urine pH 7.0 (5.0 - 8.0) 11/29/19 05:53 Ur Specific [place] 1.005 (1.000-1.030) 11/29/19 05:53 Urine Protein 2+ (NEGATIVE) 11/29/19 05:53 Urine Glucose (UA) 4+ (NEGATIVE) 11/29/19 05:53 Urine Ketones Negative (NEGATIVE) 11/29/19 05:53 Urine Occult Blood Negative (NEGATIVE) 11/29/19 05:53 Urine Nitrite Negative (NEGATIVE) 11/29/19 05:53 Urine Bilirubin Negative (NEGATIVE) 11/29/19 05:53 Urine Acetone Small (NEGATIVE) H 11/26/19 17:50 Urine Urobilinogen Normal (NORMAL) 11/29/19 05:53 Ur Leukocyte Esterase Negative (NEGATIVE) 11/29/19 05:53 Urine RBC None seen /HPF (0-3) 11/29/19 05:53 Urine WBC None seen /HPF (0-5) 11/29/19 05:53 Ur Squamous Epith Cells Negative /HPF (NEGATIVE) 11/29/19 05:53 Amorphous Sediment 1+ /HPF (NEGATIVE) 11/26/19 17:51 Urine Bacteria Negative /HPF (NEGATIVE) 11/29/19 05:53 Ur Culture Indicated? No/not indicated 11/29/19 05:53 Influenza Type A Ag Negative-presumptive (NEGATIVE) 11/24/19 20:30 Influenza Type B Ag Negative-presumptive (NEGATIVE) 11/24/19 20:30 SARS-CoV-2 (PCR) Positive (NEGATIVE) A 11/25/19 00:14 S. pyogenes (TEM-PCR) Not detected (NOT DETECT) 11/24/19 20:30 Miscellaneous Test Covid 19 12/12/19 13:55 Blood Type O POSITIVE 11/25/19 08:42 - Plan (1) COVID-19 Status: Acute (2) Bilateral interstitial pneumonia Status: Acute Plan: DUE TO COVID 19. PT ADMITTED TO ICU ISOLATION. STRICT I&OS, SUPPLEMENTAL O2, CONTINUOUS CARDIAC MONITORING. IV ZITHROMAX AND ZOSYN, HAS HAD IV REMDESIVIR AND CONVALESCENT PLASMA. BS CONTROL, SSI COVERAGE, AM LABS, BC ON ADMISSION, FEVER CONTRO RESP THERAPY (3) Diabetes mellitus type 2 Status: Acute (4) Essential hypertension Status: Acute (5) Hypoxia Status: Acute (6) Facet arthritis, degenerative, lumbar spine Status: Chronic
--- NOTE | 2019-12-22 07:56 | PCM.PROG ---
Progress Note - Progress Note for Day of Date of Exam: 12/21/19 - Subjective Subjective: The patient is a 59-year-old black female who has had aggressive treatment for bilateral COVID-19 pneumonia with hypoxia. Last COVID test negative. She requires heated high flow supplemental oxygen. Attempt on 12/21/19 to decrease from high flow to NC was unsuccessful. Is sitting up in chair at present. States that she continues to be easily winded with simple exertion. Denies productive cough. Chest x-ray is still showing bilateral pneumonia and persistent bilateral infiltrate as noted. States that she is using the incentive spirometry. Denies any complaints at present. - Past Medical Family Social History Past Med/Fam/Surg Hx: No changes since H&P Allergies: Allergies No Known Drug Allergies Allergy (Verified 03/12/19 17:18) - Review of Systems ROS: No change since H&P - Vital Signs and I&O's Vital Signs: Temperature 98.5 F Pulse Rate [Right Brachial] 101 Pulse Rate [Left Brachial] 98 Pulse Rate 107 Respiratory Rate 24 Blood Pressure [Right Arm] 114/58 Blood Pressure [Left Arm] 98/47 Blood Pressure 141/71 O2 Sat by Pulse Oximetry 95 Intake and Output: Intake & Output 12/19/19 12/20/19 12/21/19 12/22/19 23:59 23:59 23:59 23:59 Intake Total 3534 / 3534 2339 / 2339 2521 / 2521 655 / 655 Output Total 2350 / 2350 2850 / 2850 1200 / 1200 625 / 625 Balance 1184 / 1184 -511 / -511 1321 / 1321 30 30 - Physical Exam Oriented: Normal Eyes: Normal Ear: Normal Nose: Normal Throat: Normal Respiratory: Diminished Cardiovascular: Normal : Normal Auscultation: Bowel Sounds: Normal Tenderness: Normal Skin: Normal Musculoskeletal: Back:Lumbar Psychiatric: Normal Mood Description: Calm Affect: Quiet Speech Pattern: Clear, Appropriate - Laboratory and Diagnostics Result Diagrams: 12/22/19 05:00 12/22/19 05:00 Labs: 12/09/19 10:17 Blood Blood Culture - Final 12/09/19 10:10 Blood Blood Culture - Final 11/25/19 04:53 Blood Blood Culture - Final 11/25/19 04:58 Blood Blood Culture - Final 11/25/19 13:50 Urine,Clean Catch Urine Culture - Final Laboratory WBC 8.2 X10^3/uL (3.6-10.0) 12/22/19 05:00 RBC 3.44 X10^6/uL (3.5-5.4) L 12/22/19 05:00 Hgb 10.5 g/dL (12.0-16.0) L 12/22/19 05:00 Hct 31.1 % (36.0-47.0) L 12/22/19 05:00 MCV 90.3 fL (80.0-100.0) 12/22/19 05:00 MCH 30.5 pg (27.0-34.0) 12/22/19 05:00 MCHC 33.7 g/dL (33.0-35.0) 12/22/19 05:00 RDW 15.2 % (11.6-16.5) 12/22/19 05:00 Plt Count 374 X10^3/uL (150.0-450.0) 12/22/19 05:00 Plt Count Comment Adequate (ADEQUATE) 12/20/19 05:15 MPV 7.9 fL (7.4-11.0) 12/22/19 05:00 Neut % (Auto) 86.6 % (42.0-75.0) H 12/22/19 05:00 Lymph % (Auto) 10.1 % (21.0-51.0) L 12/22/19 05:00 [place] % (Auto) 2.9 % (0.0-13.0) 12/22/19 05:00 Eos % (Auto) 0.3 % (0.9-2.9) L 12/22/19 05:00 Baso % (Auto) 0.1 % (0.2-1.0) L 12/22/19 05:00 Neut # (Auto) 7.1 x10^3/uL (2.2-4.8) H 12/22/19 05:00 Lymph # (Auto) 0.8 X10^3/uL (1.3-2.9) L 12/22/19 05:00 [place] # (Auto) 0.2 x10^3/uL (0.3-0.8) L 12/22/19 05:00 Eos # (Auto) 0.0 x10^3/uL (0.0-0.2) 12/22/19 05:00 Baso # (Auto) 0.0 X10^3/uL (0.0-0.1) 12/22/19 05:00 Absolute Nucleated RBC 0.1 /100WBC 12/22/19 05:00 Total Counted 100 12/20/19 05:15 Neutrophils % (Manual) 89 % (39-76) H 12/20/19 05:15 Band Neutrophils % 2 % (0-10) 12/20/19 05:15 Lymphocytes % (Manual) 7 % (13-43) L 12/20/19 05:15 Monocytes % (Manual) 2 % (4-9) L 12/20/19 05:15 Eosinophils % (Manual) 2 % (0-6) 12/15/19 05:40 Plt Morphology Comment Normal (NORMAL) 12/20/19 05:15 RBC Morphology Normal (NORMAL) 12/20/19 05:15 ESR 67 MM/HOUR (0-20) H 12/11/19 05:24 PT 29.7 SECONDS (11.8-14.3) 11/29/19 01:41 INR Target Range - 11/29/19 01:41 INR 2.93 (0.8-1.3) H 11/29/19 01:41 APTT 133.2 SECONDS (22.9-36.5) H 12/12/19 09:38 PTT Comment - 12/12/19 09:38 D-Dimer 0.45 ug/ml (0.0-0.57) 11/28/19 17:18 Sample Site Lr 12/21/19 14:31 ABG pH 7.470 (7.35-7.45) H 12/21/19 14:31 ABG pCO2 47.0 mmHg (35.0-45.0) H 12/21/19 14:31 ABG pO2 55.0 mmHg (80.0-100.0) L 12/21/19 14:31 ABG HCO3 34.2 mmol/L (22-26) H* 12/21/19 14:31 ABG O2 Saturation 90.0 % (90-100) 12/21/19 14:31 ABG Base Excess 9.2 mmol/L (-2.0-2.0) H 12/21/19 14:31 Willy Test Pos 12/21/19 14:31 A-a Gradient 93.0 mmHg 12/21/19 14:31 FiO2 29.0 12/21/19 14:31 Blood Gas Comments Pt al well.cdn 12/21/19 14:31 Sodium 138 mmol/L (136-145) 12/22/19 05:00 Corrected Sodium 142 mmol/L (136-145) 12/22/19 05:00 Potassium 5.1 mmol/L (3.5-5.1) 12/22/19 05:00 Chloride 103 mmol/L (98-107) 12/22/19 05:00 Carbon Dioxide 29.7 mmol/L (21-32) 12/22/19 05:00 BUN 23 mg/dL (7-18) H 12/22/19 05:00 Creatinine 0.90 mg/dL (0.55-1.02) 12/22/19 05:00 Est GFR (MDRD) Af Amer > 60 (>60) 12/22/19 05:00 Est GFR (MDRD) Non-Af > 60 (>60) 12/22/19 05:00 Glucose 275 mg/dL (65-99) H 12/22/19 05:00 POC Glucose (mg/dL) 240 mg/dL (65-99) H 12/22/19 05:24 Lactic Acid 0.9 mmol/L (0.4-2.0) 11/25/19 08:26 Calcium 8.9 mg/dL (8.5-10.1) 12/22/19 05:00 Corrected Calcium 10.0 mg/dL (8.5-10.1) 12/22/19 05:00 Magnesium 1.7 mg/dL (1.7-2.9) 12/08/19 04:57 Ferritin 345 ng/mL (8-252) H 11/28/19 04:49 Total Bilirubin 0.30 mg/dL (0.2-1.0) 12/22/19 05:00 AST 21 Units/L (15-37) 12/22/19 05:00 ALT 48 Units/L (12-78) 12/22/19 05:00 Alkaline Phosphatase 94 Units/L (46-116) 12/22/19 05:00 Creatine Kinase 35 Units/L (26-192) 12/09/19 10:10 CK-MB (CK-2) 1.2 ng/mL (0-4.0) 12/09/19 10:10 CK/CKMB % Calc 3.4 % (<4) 12/09/19 10:10 Troponin I < 0.02 ng/mL (0-1.5) 12/09/19 10:10 C-Reactive Protein 17.70 mg/L (0-3.0) H 12/12/19 03:11 Total Protein 6.8 g/dL (6.4-8.2) 12/22/19 05:00 Albumin 2.6 g/dL (3.4-5.0) L 12/22/19 05:00 Globulin 4.2 g/dL (2.5-4.5) 12/22/19 05:00 Albumin/Globulin Ratio 0.6 Ratio (1.1-2.1) L 12/22/19 05:00 Specimen Type Catherized urine 11/29/19 05:53 Urine Color Yellow (YELLOW) 11/29/19 05:53 Urine Appearance Clear (CLEAR) 11/29/19 05:53 Urine pH 7.0 (5.0 - 8.0) 11/29/19 05:53 Ur Specific [place] 1.005 (1.000-1.030) 11/29/19 05:53 Urine Protein 2+ (NEGATIVE) 11/29/19 05:53 Urine Glucose (UA) 4+ (NEGATIVE) 11/29/19 05:53 Urine Ketones Negative (NEGATIVE) 11/29/19 05:53 Urine Occult Blood Negative (NEGATIVE) 11/29/19 05:53 Urine Nitrite Negative (NEGATIVE) 11/29/19 05:53 Urine Bilirubin Negative (NEGATIVE) 11/29/19 05:53 Urine Acetone Small (NEGATIVE) H 11/26/19 17:50 Urine Urobilinogen Normal (NORMAL) 11/29/19 05:53 Ur Leukocyte Esterase Negative (NEGATIVE) 11/29/19 05:53 Urine RBC None seen /HPF (0-3) 11/29/19 05:53 Urine WBC None seen /HPF (0-5) 11/29/19 05:53 Ur Squamous Epith Cells Negative /HPF (NEGATIVE) 11/29/19 05:53 Amorphous Sediment 1+ /HPF (NEGATIVE) 11/26/19 17:51 Urine Bacteria Negative /HPF (NEGATIVE) 11/29/19 05:53 Ur Culture Indicated? No/not indicated 11/29/19 05:53 Influenza Type A Ag Negative-presumptive (NEGATIVE) 11/24/19 20:30 Influenza Type B Ag Negative-presumptive (NEGATIVE) 11/24/19 20:30 SARS-CoV-2 (PCR) Positive (NEGATIVE) A 11/25/19 00:14 S. pyogenes (TEM-PCR) Not detected (NOT DETECT) 11/24/19 20:30 Miscellaneous Test Covid 19 12/12/19 13:55 Blood Type O POSITIVE 11/25/19 08:42 - Plan (1) Bilateral interstitial pneumonia Status: Acute Plan: DUE TO COVID 19. PT ADMITTED TO ICU ISOLATION. STRICT I&OS, SUPPLEMENTAL O2, CONTINUOUS CARDIAC MONITORING. IV ZITHROMAX AND ZOSYN, HAS HAD IV REMDESIVIR AND CONVALESCENT PLASMA. BS CONTROL, SSI COVERAGE, AM LABS, BC ON ADMISSION, FEVER CONTRO RESP THERAPY (2) COVID-19 Status: Acute Plan: Last test Negative (3) Diabetes mellitus type 2 Status: Acute Plan: Monitor BS. (4) Essential hypertension Status: Acute (5) Hypoxia Status: Acute (6) Facet arthritis, degenerative, lumbar spine Status: Chronic
[2019-12-22] MEDS: ELIQUIS PO SCH ×2 (08:38→20:33)
[2019-12-22] MEDS: ZESTRIL TAB 20 MG PO SCH (08:38)
[2019-12-22] MEDS: LANTUS SC SCH (08:39)
[2019-12-22] MEDS: FLONASE NASAL SPRAY ENOSTRIL SCH ×2 (08:39→20:34)
[2019-12-22] MEDS: PROTONIX TAB 40 MG PO SCH (08:40)
[2019-12-22] MEDS: MILK OF MAGNESIA PO SCH ×2 (08:40→20:34)
[2019-12-22] MEDS: TRICOR TAB 160 MG PO SCH (08:41)
[2019-12-22] MEDS: ROBITUSSIN DM PO SCH ×4 (08:41→20:35)
[2019-12-22] MEDS: SOLU-Medrol 125 MG VIAL IVP SCH ×2 (08:41→20:35)
[2019-12-22] MEDS: VITAMIN D3 125 mcg (5,000 UNITS) PO SCH (08:42)
[2019-12-22] MEDS: VITAMIN A PO SCH (08:42)
[2019-12-22] MEDS: VITAMIN C PO SCH ×2 (08:42→20:35)
[2019-12-22] MEDS: ZINC SULFATE PO SCH ×2 (08:43→20:36)
[2019-12-22] MEDS: ZOLOFT PO SCH (08:43)
[2019-12-22] MEDS: SNACK - Diabetic Appropriate PO SCH (20:33)
[2019-12-22] MEDS: COLACE CAP 100 MG PO SCH (20:33)
[2019-12-22] MEDS: MIRALAX POWDER (1 DOSE 17 G) PO SCH (20:35)
[2019-12-22] MEDS: NORCO 5/325 MG TAB PO PRN (20:46)
[2019-12-22] MEDS: ZITHROMAX INJ 500 MG VIAL 500 MG in NS 250 ML IV 250 ML IV SCH (21:15)
[2019-12-23] MEDS: NS 1000 ML 1,000 ML IV SCH ×2 (01:02→04:57)
[2019-12-23 05:30] LABS: BASOPHILS % (AUTO) 0.4 % (0.2-1.0); EOSINOPHILS % (AUTO) 0.1 % (0.9-2.9); HEMATOCRIT 30.5 % (36.0-47.0); HEMOGLOBIN 10.5 g/dL (12.0-16.0); LYMPHOCYTES # (AUTO) 0.9 X10^3/uL (1.3-2.9); LYMPHOCYTES % (AUTO) 10.6 % (21.0-51.0); MEAN CORPUSCULAR HEMOGLOBIN 30.8 pg (27.0-34.0); MEAN CORPUSCULAR HGB CONC 34.5 g/dL (33.0-35.0); MEAN CORPUSCULAR VOLUME 89.1 fL (80.0-100.0); MEAN PLATELET VOLUME 7.7 fL (7.4-11.0); MONOCYTES # (AUTO) 0.4 x10^3/uL (0.3-0.8); MONOCYTES % (AUTO) 4.3 % (0.0-13.0); NEUTROPHILS # (AUTO) 7.1 x10^3/uL (2.2-4.8); NEUTROPHILS % (AUTO) 84.6 % (42.0-75.0); PLATELET COUNT 402 X10^3/uL (150.0-450.0); RED BLOOD COUNT 3.43 X10^6/uL (3.5-5.4); RED CELL DISTRIBUTION WIDTH 15.3 % (11.6-16.5); WHITE BLOOD COUNT 8.4 X10^3/uL (3.6-10.0)
[2019-12-23 05:43] LABS: ALANINE AMINOTRANSFERASE 45 Units/L (12-78); ALBUMIN 2.8 g/dL (3.4-5.0); ALKALINE PHOSPHATASE 86 Units/L (46-116); ASPARTATE AMINO TRANSFERASE 19 Units/L (15-37); BLOOD UREA NITROGEN 19 mg/dL (7-18); CALCIUM 9.1 mg/dL (8.5-10.1); CARBON DIOXIDE 29.4 mmol/L (21-32); CHLORIDE 103 mmol/L (98-107); COR CA(FOR HYPOALB) 10.1 mg/dL (8.5-10.1); COR NA(FOR HYPERGLY) 141 mmol/L (136-145); CREATININE 0.69 mg/dL (0.55-1.02); SODIUM 139 mmol/L (136-145); eGFR NON BLACK RACES > 60 (>60)
[2019-12-23 05:53] LABS: ABG ALLEN TEST POS; ABG BASE EXCESS 8.9 mmol/L (-2.0-2.0); ABG HCO3 34.1 mmol/L (22-26)
[2019-12-23 06:18] LABS: PLATELET MORPHOLOGY COMMENT NORMAL (NORMAL)
[2019-12-23] MEDS: MAG-OX TAB PO SCH ×2 (06:18→17:04)
[2019-12-23] MEDS: XOPENEX 1.25 MG/3 ML NEBULE NEB SCH ×4 (06:21→17:50)
[2019-12-23] MEDS ORDERED: ZESTRIL TAB 20 MG ONE (08:14)
[2019-12-23] MEDS: FLONASE NASAL SPRAY ENOSTRIL SCH ×2 (08:32→20:30)
[2019-12-23] MEDS: ZESTRIL TAB 20 MG PO SCH (08:32)
[2019-12-23] MEDS: ELIQUIS PO SCH ×2 (08:32→20:26)
[2019-12-23] MEDS: LANTUS SC SCH (08:33)
[2019-12-23] MEDS: PROTONIX TAB 40 MG PO SCH (08:34)
[2019-12-23] MEDS: MILK OF MAGNESIA PO SCH ×2 (08:34→20:30)
[2019-12-23] MEDS: ROBITUSSIN DM PO SCH ×4 (08:34→20:29)
[2019-12-23] MEDS: TRICOR TAB 160 MG PO SCH (08:35)
[2019-12-23] MEDS: VITAMIN A PO SCH (08:35)
[2019-12-23] MEDS: SOLU-Medrol 125 MG VIAL IVP SCH ×2 (08:35→20:29)
[2019-12-23] MEDS: VITAMIN C PO SCH ×2 (08:36→20:27)
[2019-12-23] MEDS: ZINC SULFATE PO SCH ×2 (08:36→20:26)
[2019-12-23] MEDS: VITAMIN D3 125 mcg (5,000 UNITS) PO SCH (08:36)
[2019-12-23] MEDS: ZOLOFT PO SCH (08:37)
[2019-12-23] MEDS: NORCO 5/325 MG TAB PO PRN ×2 (09:06→20:31)
[2019-12-23] MEDS: HumuLIN R SC PRN ×2 (11:24→17:05)
[2019-12-23] MEDS: SNACK - Diabetic Appropriate PO SCH (20:00)
[2019-12-23] MEDS: COLACE CAP 100 MG PO SCH (20:25)
[2019-12-23] MEDS: MIRALAX POWDER (1 DOSE 17 G) PO SCH ×2 (20:29→21:12)
[2019-12-23] MEDS: ZITHROMAX INJ 500 MG VIAL 500 MG in NS 250 ML IV 250 ML IV SCH (21:13)
[2019-12-24] MEDS: XOPENEX 1.25 MG/3 ML NEBULE NEB SCH ×4 (00:55→18:00)
--- NOTE | 2019-12-24 03:47 | RAD ---
STUDY: CHEST, 1 VIEWCOMPARISON: December 21, 2019HISTORY: Shortness of breathFINDINGS:Exam is limited due to poor inspiratory effort. Persistent diffuse alveolar airspace disease is seen in the left mid and bilateral lower lung zones. Cardiomediastinal contour is magnified on this portable technique which may be exaggerated by poor inspiratory effort. No pleural effusion or gross pneumothorax is seen.IMPRESSION:There is no significant change from prior examElectronically signed by: Jasvir Escalera (Dec 24, 2019 03:47:24)
[2019-12-24 05:24] LABS: BASOPHILS % (AUTO) 0.4 % (0.2-1.0); EOSINOPHILS % (AUTO) 0.2 % (0.9-2.9); HEMATOCRIT 30.3 % (36.0-47.0); HEMOGLOBIN 10.4 g/dL (12.0-16.0); LYMPHOCYTES # (AUTO) 1.1 X10^3/uL (1.3-2.9); LYMPHOCYTES % (AUTO) 13.3 % (21.0-51.0); MEAN CORPUSCULAR HEMOGLOBIN 30.6 pg (27.0-34.0); MEAN CORPUSCULAR HGB CONC 34.2 g/dL (33.0-35.0); MEAN CORPUSCULAR VOLUME 89.3 fL (80.0-100.0); MEAN PLATELET VOLUME 7.9 fL (7.4-11.0); MONOCYTES # (AUTO) 0.4 x10^3/uL (0.3-0.8); MONOCYTES % (AUTO) 4.7 % (0.0-13.0); NEUTROPHILS # (AUTO) 6.9 x10^3/uL (2.2-4.8); NEUTROPHILS % (AUTO) 81.4 % (42.0-75.0); PLATELET COUNT 417 X10^3/uL (150.0-450.0); RED CELL DISTRIBUTION WIDTH 15.4 % (11.6-16.5); WHITE BLOOD COUNT 8.4 X10^3/uL (3.6-10.0)
[2019-12-24 05:35] LABS: ALANINE AMINOTRANSFERASE 43 Units/L (12-78); ALBUMIN 2.8 g/dL (3.4-5.0); ALKALINE PHOSPHATASE 84 Units/L (46-116); ASPARTATE AMINO TRANSFERASE 14 Units/L (15-37); BLOOD UREA NITROGEN 17 mg/dL (7-18); CARBON DIOXIDE 30.7 mmol/L (21-32); CHLORIDE 102 mmol/L (98-107); COR NA(FOR HYPERGLY) 142 mmol/L (136-145); CREATININE 0.68 mg/dL (0.55-1.02); SODIUM 141 mmol/L (136-145); TOTAL PROTEIN 6.9 g/dL (6.4-8.2); eGFR NON BLACK RACES > 60 (>60)
[2019-12-24] MEDS: NS 1000 ML 1,000 ML IV SCH (05:39)
[2019-12-24 05:48] LABS: PLATELET MORPHOLOGY COMMENT NORMAL (NORMAL)
[2019-12-24] MEDS: MAG-OX TAB PO SCH ×2 (06:07→17:24)
[2019-12-24] MEDS ORDERED: ZESTRIL TAB 20 MG ONE (08:08)
[2019-12-24] MEDS: VITAMIN A PO SCH (08:26)
[2019-12-24] MEDS: LANTUS SC SCH (08:26)
[2019-12-24] MEDS: MAALOX or MYLANTA PO PRN (08:26)
[2019-12-24] MEDS: ZINC SULFATE PO SCH ×2 (08:28→20:23)
[2019-12-24] MEDS: PROTONIX TAB 40 MG PO SCH (08:28)
[2019-12-24] MEDS: ROBITUSSIN DM PO SCH ×4 (08:28→20:24)
[2019-12-24] MEDS: VITAMIN C PO SCH ×2 (08:29→20:23)
[2019-12-24] MEDS: NORCO 5/325 MG TAB PO PRN ×2 (08:29→17:30)
[2019-12-24] MEDS: TRICOR TAB 160 MG PO SCH (08:30)
[2019-12-24] MEDS: FLONASE NASAL SPRAY ENOSTRIL SCH ×2 (08:30→20:25)
[2019-12-24] MEDS: ELIQUIS PO SCH ×2 (08:31→20:22)
[2019-12-24] MEDS: VITAMIN D3 125 mcg (5,000 UNITS) PO SCH (08:31)
[2019-12-24] MEDS: ZOLOFT PO SCH (08:31)
[2019-12-24] MEDS: ZESTRIL TAB 20 MG PO SCH (08:31)
[2019-12-24] MEDS: MILK OF MAGNESIA PO SCH ×2 (08:32→20:22)
[2019-12-24] MEDS: SOLU-Medrol 125 MG VIAL IVP SCH ×2 (08:45→20:24)
[2019-12-24] MEDS: HumuLIN R SC PRN (17:28)
[2019-12-24] MEDS: SNACK - Diabetic Appropriate PO SCH (20:00)
[2019-12-24] MEDS: COLACE CAP 100 MG PO SCH (20:21)
[2019-12-24] MEDS: ZITHROMAX INJ 500 MG VIAL 500 MG in NS 250 ML IV 250 ML IV SCH (22:00)
[2019-12-24] MEDS: MIRALAX POWDER (1 DOSE 17 G) PO SCH (23:34)
[2019-12-25] MEDS: XOPENEX 1.25 MG/3 ML NEBULE NEB SCH ×4 (01:00→17:13)
[2019-12-25 05:15] LABS: BASOPHILS % (AUTO) 0.3 % (0.2-1.0); EOSINOPHILS % (AUTO) 0.1 % (0.9-2.9); HEMATOCRIT 31.2 % (36.0-47.0); HEMOGLOBIN 10.5 g/dL (12.0-16.0); LYMPHOCYTES # (AUTO) 1.2 X10^3/uL (1.3-2.9); LYMPHOCYTES % (AUTO) 13.4 % (21.0-51.0); MEAN CORPUSCULAR HEMOGLOBIN 30.2 pg (27.0-34.0); MEAN CORPUSCULAR HGB CONC 33.7 g/dL (33.0-35.0); MEAN CORPUSCULAR VOLUME 89.7 fL (80.0-100.0); MEAN PLATELET VOLUME 7.6 fL (7.4-11.0); MONOCYTES # (AUTO) 0.5 x10^3/uL (0.3-0.8); NEUTROPHILS # (AUTO) 7.3 x10^3/uL (2.2-4.8); NEUTROPHILS % (AUTO) 81.2 % (42.0-75.0); PLATELET COUNT 430 X10^3/uL (150.0-450.0); RED BLOOD COUNT 3.48 X10^6/uL (3.5-5.4); RED CELL DISTRIBUTION WIDTH 15.2 % (11.6-16.5)
[2019-12-25 05:56] LABS: ABG BASE EXCESS 7.2 mmol/L (-2.0-2.0)
[2019-12-25 05:59] LABS: ABG ALLEN TEST POS
[2019-12-25] MEDS: NS 1000 ML 1,000 ML IV SCH (06:25)
[2019-12-25] MEDS: MAG-OX TAB PO SCH ×2 (06:29→17:39)
[2019-12-25] MEDS: HumuLIN R SC PRN ×4 (06:30→21:16)
[2019-12-25 07:24] LABS: ALANINE AMINOTRANSFERASE 41 Units/L (12-78); ALBUMIN 2.8 g/dL (3.4-5.0); ALKALINE PHOSPHATASE 88 Units/L (46-116); ASPARTATE AMINO TRANSFERASE 16 Units/L (15-37); BLOOD UREA NITROGEN 19 mg/dL (7-18); CALCIUM 9.2 mg/dL (8.5-10.1); CHLORIDE 101 mmol/L (98-107); COR CA(FOR HYPOALB) 10.2 mg/dL (8.5-10.1); COR NA(FOR HYPERGLY) 143 mmol/L (136-145); CREATININE 0.83 mg/dL (0.55-1.02); SODIUM 139 mmol/L (136-145); TOTAL PROTEIN 7.1 g/dL (6.4-8.2); eGFR NON BLACK RACES > 60 (>60)
[2019-12-25] MEDS ORDERED: ZESTRIL TAB 20 MG ONE (08:05)
[2019-12-25] MEDS: ELIQUIS PO SCH ×2 (08:14→21:06)
[2019-12-25] MEDS: FLONASE NASAL SPRAY ENOSTRIL SCH ×2 (08:14→21:08)
[2019-12-25] MEDS: MILK OF MAGNESIA PO SCH ×2 (08:15→21:06)
[2019-12-25] MEDS: LANTUS SC SCH (08:15)
[2019-12-25] MEDS: ROBITUSSIN DM PO SCH ×4 (08:16→21:07)
[2019-12-25] MEDS: TRICOR TAB 160 MG PO SCH (08:16)
[2019-12-25] MEDS: SOLU-Medrol 125 MG VIAL IVP SCH ×2 (08:16→21:06)
[2019-12-25] MEDS: PROTONIX TAB 40 MG PO SCH (08:16)
[2019-12-25] MEDS: VITAMIN C PO SCH ×2 (08:17→21:07)
[2019-12-25] MEDS: VITAMIN A PO SCH (08:17)
[2019-12-25] MEDS: ZESTRIL TAB 20 MG PO SCH (08:18)
[2019-12-25] MEDS: VITAMIN D3 125 mcg (5,000 UNITS) PO SCH (08:18)
[2019-12-25] MEDS: ZINC SULFATE PO SCH ×2 (08:19→21:06)
[2019-12-25] MEDS: ZOLOFT PO SCH (08:19)
[2019-12-25] MEDS: NORCO 5/325 MG TAB PO PRN ×2 (08:20→21:08)
[2019-12-25] MEDS: MAALOX or MYLANTA PO PRN (18:39)
[2019-12-25] MEDS: SNACK - Diabetic Appropriate PO SCH (20:00)
[2019-12-25] MEDS: COLACE CAP 100 MG PO SCH (21:05)
[2019-12-25] MEDS: MIRALAX POWDER (1 DOSE 17 G) PO SCH (21:07)
[2019-12-26] MEDS: XOPENEX 1.25 MG/3 ML NEBULE NEB SCH ×3 (01:03→18:13)
[2019-12-26 05:20] LABS: BASOPHILS % (AUTO) 0.1 % (0.2-1.0); HEMATOCRIT 29.9 % (36.0-47.0); HEMOGLOBIN 10.2 g/dL (12.0-16.0); LYMPHOCYTES # (AUTO) 0.8 X10^3/uL (1.3-2.9); LYMPHOCYTES % (AUTO) 9.7 % (21.0-51.0); MEAN CORPUSCULAR HEMOGLOBIN 30.4 pg (27.0-34.0); MEAN CORPUSCULAR VOLUME 89.5 fL (80.0-100.0); MEAN PLATELET VOLUME 8.1 fL (7.4-11.0); MONOCYTES # (AUTO) 0.3 x10^3/uL (0.3-0.8); MONOCYTES % (AUTO) 3.6 % (0.0-13.0); NEUTROPHILS # (AUTO) 7.4 x10^3/uL (2.2-4.8); NEUTROPHILS % (AUTO) 86.6 % (42.0-75.0); PLATELET COUNT 422 X10^3/uL (150.0-450.0); RED BLOOD COUNT 3.34 X10^6/uL (3.5-5.4); RED CELL DISTRIBUTION WIDTH 15.4 % (11.6-16.5); WHITE BLOOD COUNT 8.6 X10^3/uL (3.6-10.0)
[2019-12-26] MEDS: NS 1000 ML 1,000 ML IV SCH ×2 (05:24→20:24)
[2019-12-26] MEDS: MAG-OX TAB PO SCH ×2 (06:03→18:38)
[2019-12-26] MEDS: HumuLIN R SC PRN ×5 (06:51→23:30)
[2019-12-26 07:20] LABS: ALANINE AMINOTRANSFERASE 44 Units/L (12-78); ALBUMIN 2.9 g/dL (3.4-5.0); ALKALINE PHOSPHATASE 83 Units/L (46-116); ASPARTATE AMINO TRANSFERASE 17 Units/L (15-37); BLOOD UREA NITROGEN 22 mg/dL (7-18); CALCIUM 9.2 mg/dL (8.5-10.1); CARBON DIOXIDE 29.7 mmol/L (21-32); CHLORIDE 101 mmol/L (98-107); COR CA(FOR HYPOALB) 10.1 mg/dL (8.5-10.1); COR NA(FOR HYPERGLY) 141 mmol/L (136-145); CREATININE 0.79 mg/dL (0.55-1.02); SODIUM 139 mmol/L (136-145); TOTAL PROTEIN 7.1 g/dL (6.4-8.2); eGFR NON BLACK RACES > 60 (>60)
[2019-12-26] MEDS ORDERED: ZESTRIL TAB 20 MG ONE (08:44)
[2019-12-26] MEDS: ZINC SULFATE PO SCH ×2 (08:56→20:42)
[2019-12-26] MEDS: PROTONIX TAB 40 MG PO SCH (08:57)
[2019-12-26] MEDS: ROBITUSSIN DM PO SCH ×4 (08:58→20:40)
[2019-12-26] MEDS: VITAMIN D3 125 mcg (5,000 UNITS) PO SCH (08:58)
[2019-12-26] MEDS: FLONASE NASAL SPRAY ENOSTRIL SCH ×2 (08:59→20:39)
[2019-12-26] MEDS: ZESTRIL TAB 20 MG PO SCH (09:00)
[2019-12-26] MEDS: VITAMIN C PO SCH ×2 (09:00→20:42)
[2019-12-26] MEDS: ZOLOFT PO SCH (09:01)
[2019-12-26] MEDS: TRICOR TAB 160 MG PO SCH (09:01)
[2019-12-26] MEDS: VITAMIN A PO SCH (09:02)
[2019-12-26] MEDS: SOLU-Medrol 125 MG VIAL IVP SCH (09:02)
[2019-12-26] MEDS: MILK OF MAGNESIA PO SCH ×2 (09:02→20:40)
[2019-12-26] MEDS: ELIQUIS PO SCH ×2 (09:10→20:39)
[2019-12-26] MEDS: LANTUS SC SCH (09:11)
[2019-12-26] MEDS ORDERED: MILK OF MAGNESIA ONE (09:29)
[2019-12-26] MEDS: ULTRAM PO PRN (09:44)
[2019-12-26] MEDS ORDERED: PREDNISONE TAB 10 MG PO ONE (10:10)
[2019-12-26] MEDS: PREDNISONE TAB 10 MG PO SCH (10:12)
[2019-12-26] MEDS: SNACK - Diabetic Appropriate PO SCH (20:24)
[2019-12-26] MEDS: COLACE CAP 100 MG PO SCH (20:39)
[2019-12-26] MEDS: MIRALAX POWDER (1 DOSE 17 G) PO SCH (20:40)
[2019-12-26] MEDS: NORCO 5/325 MG TAB PO PRN (20:43)
[2019-12-27] MEDS: XOPENEX 1.25 MG/3 ML NEBULE NEB SCH ×5 (00:23→17:15)
[2019-12-27 05:15] LABS: ABG BASE EXCESS 11.3 mmol/L (-2.0-2.0)
[2019-12-27 05:16] LABS: ABG ALLEN TEST POS
[2019-12-27] MEDS: NS 1000 ML 1,000 ML IV SCH (05:27)
[2019-12-27 05:40] LABS: BASOPHILS % (AUTO) 0.3 % (0.2-1.0); EOSINOPHILS % (AUTO) 0.4 % (0.9-2.9); HEMATOCRIT 29.8 % (36.0-47.0); HEMOGLOBIN 10.1 g/dL (12.0-16.0); LYMPHOCYTES # (AUTO) 2.4 X10^3/uL (1.3-2.9); LYMPHOCYTES % (AUTO) 27.9 % (21.0-51.0); MEAN CORPUSCULAR HEMOGLOBIN 30.4 pg (27.0-34.0); MEAN CORPUSCULAR HGB CONC 33.8 g/dL (33.0-35.0); MEAN PLATELET VOLUME 7.9 fL (7.4-11.0); MONOCYTES # (AUTO) 0.6 x10^3/uL (0.3-0.8); MONOCYTES % (AUTO) 7.5 % (0.0-13.0); NEUTROPHILS # (AUTO) 5.4 x10^3/uL (2.2-4.8); NEUTROPHILS % (AUTO) 63.9 % (42.0-75.0); PLATELET COUNT 421 X10^3/uL (150.0-450.0); RED BLOOD COUNT 3.31 X10^6/uL (3.5-5.4); RED CELL DISTRIBUTION WIDTH 15.5 % (11.6-16.5); WHITE BLOOD COUNT 8.5 X10^3/uL (3.6-10.0)
[2019-12-27 05:55] LABS: ALANINE AMINOTRANSFERASE 43 Units/L (12-78); ALBUMIN 2.8 g/dL (3.4-5.0); ALKALINE PHOSPHATASE 78 Units/L (46-116); ASPARTATE AMINO TRANSFERASE 12 Units/L (15-37); BLOOD UREA NITROGEN 24 mg/dL (7-18); CALCIUM 9.2 mg/dL (8.5-10.1); CARBON DIOXIDE 32.4 mmol/L (21-32); CHLORIDE 103 mmol/L (98-107); COR CA(FOR HYPOALB) 10.2 mg/dL (8.5-10.1); CREATININE 0.76 mg/dL (0.55-1.02); SODIUM 141 mmol/L (136-145); TOTAL PROTEIN 6.8 g/dL (6.4-8.2); eGFR NON BLACK RACES > 60 (>60)
--- NOTE | 2019-12-27 06:43 | RAD ---
HISTORYSOBSTUDYPortable AP [id number] and stable cardiac enlargement. Diffuse bilateral infiltra stan, unchanged in extent and distribution. No complicating extrapulmonary air or developing pleural e ffusion.IMPRESSIONPersistent bilateral infiltrates consistent with pneumonia. No change.Electronicall y signed by: ARMANDO BARRAGAN (Dec 27, 2019 06:42:30)
[2019-12-27] MEDS ORDERED: ZESTRIL TAB 20 MG ONE (08:32)
[2019-12-27] MEDS: TRICOR TAB 160 MG PO SCH (08:48)
[2019-12-27] MEDS: ROBITUSSIN DM PO SCH ×4 (08:48→22:00)
[2019-12-27] MEDS: MAG-OX TAB PO SCH ×2 (08:49→17:00)
[2019-12-27] MEDS: PREDNISONE TAB 10 MG PO SCH (08:49)
[2019-12-27] MEDS: ELIQUIS PO SCH ×2 (08:49→22:00)
[2019-12-27] MEDS: PROTONIX TAB 40 MG PO SCH (08:49)
[2019-12-27] MEDS: VITAMIN D3 125 mcg (5,000 UNITS) PO SCH (08:49)
[2019-12-27] MEDS: VITAMIN C PO SCH ×2 (08:49→22:01)
[2019-12-27] MEDS: ZOLOFT PO SCH (08:50)
[2019-12-27] MEDS: ZINC SULFATE PO SCH ×2 (08:50→22:01)
[2019-12-27] MEDS: ZESTRIL TAB 20 MG PO SCH (08:51)
[2019-12-27] MEDS: FLONASE NASAL SPRAY ENOSTRIL SCH ×2 (08:52→22:00)
[2019-12-27] MEDS: VITAMIN A PO SCH (08:52)
[2019-12-27] MEDS: MILK OF MAGNESIA PO SCH ×2 (08:53→22:00)
[2019-12-27] MEDS: LANTUS SC SCH ×2 (08:53→11:12)
[2019-12-27] MEDS: NORCO 5/325 MG TAB PO PRN ×2 (09:15→22:05)
[2019-12-27] MEDS: ULTRAM PO PRN (15:27)
[2019-12-27] MEDS: HumuLIN R SC PRN ×2 (18:18→22:20)
--- NOTE | 2019-12-27 20:45 | PCM.PROG ---
Progress Note - Progress Note for Day of Date of Exam: 12/27/19 - Subjective Subjective: WAS BEING TREATED FOR COVID PNEUMONIA WITH HYPOXIA AND RESPIRATORY FAILURE, AND A LEFT LOWER EXTREMITY DVT. SHE HAS NOW TESTED NEGATIVE FOR COVID-19. SHE IS NOW UTILIZING OXYGEN VIA NASAL CANNULA AT 3 LITERS/MIN. SHE IS AWAITING INTERMEDIATE PLACEMENT AND IS EXPECTED TO BE ACCEPTED ON SUNDAY. SHE CONTINUES WITH SHORTNESS OF BREAHT AND INTERMITTENT COUGH TODAY. ON EXAMINATION, HEART IS REGULAR IN RATE AND RHYTHM. BILATERAL LUNGS ARE NOTED WITH DIMINISHED LUNG SOUNDS THROUGHOUT. ABDOMEN IS ROUND, SOFT, AND NON-TENDER WITH NORMAL BOWEL SOUNDS NOTED INALL QUDRANTS. TRACE LEFT LOWER EXTREMITY EDEMA NOTED. HER VITALS THIS MORNING ARE: 97.5-108-27-93%-122/56. LABS WERE OBTAINED. ABNORMAL LAB VALUES INCLUDE THE FOLLOWING: RBC 3.31, HGB 10.1, HCT 29.8, CARBON DIOXIDE 32.4, BUN 24, AST 12, ALBUMIN 2.8. CHEST XRAY OBTAINED TODAY AND REVEALED: Persistent bilateral infiltrates consistent with pneumonia. No change. SHE IS CURRENTLY RECEIVING NS AT KVO, PREDNISONE 10MG DAILY, THE POTASSIUM AND MAGNESIUM PROTOCOLS, XOPENEX NEB [place] Q6H, ELIQUIS, HUMULIN R SLIDING SCALE, LANTUS 50 UNITS SC DAILY. STAFF REPORTS THAT PATIENTS BLOOD GLUCOSE LEVELS BOTTOMED OUT AT 60 TODAY. WE WILL DECREASE HER LANTUS TO 35 UNITS SC DAILY TODAY. OTHERWISE, WE WILL FOLLOW UP WITH AM LABS AND CONTINUE TO MONITOR. - Past Medical Family Social History Past Med/Fam/Surg Hx: No changes since H&P Allergies: Allergies No Known Drug Allergies Allergy (Verified 03/12/19 17:18) - Review of Systems ROS: No change since H&P - Vital Signs and I&O's Vital Signs: Temperature 97.3 F Pulse Rate [Right Brachial] 110 Pulse Rate [Left Brachial] 98 Pulse Rate 101 Respiratory Rate 35 Blood Pressure [Right Arm] 123/61 Blood Pressure [Left Arm] 135/62 Blood Pressure 141/71 O2 Sat by Pulse Oximetry 95 Intake and Output: Intake & Output 12/25/19 12/26/19 12/27/19 12/28/19 11:59 11:59 11:59 11:59 Intake Total 2559 / 2559 2058 2370 / 2370 955 / 955 Balance 2559 / 2559 2059 / 2059 2370 / 237 955 / 955 - Physical Exam Oriented: Normal Eyes: Normal Ear: Normal Nose: Normal Throat: Normal Respiratory: Diminished Cardiovascular: Normal : Normal Auscultation: Bowel Sounds: Normal Tenderness: Normal Skin: Normal Musculoskeletal: Back:Lumbar Psychiatric: Normal Mood Description: Calm Affect: Quiet Speech Pattern: Clear, Appropriate - Laboratory and Diagnostics Result Diagrams: 12/27/19 04:55 12/27/19 17:30 Labs: 12/09/19 10:17 Blood Blood Culture - Final 12/09/19 10:10 Blood Blood Culture - Final 11/25/19 04:53 Blood Blood Culture - Final 11/25/19 04:58 Blood Blood Culture - Final 11/25/19 13:50 Urine,Clean Catch Urine Culture - Final Laboratory WBC 8.5 X10^3/uL (3.6-10.0) 12/27/19 04:55 RBC 3.31 X10^6/uL (3.5-5.4) L 12/27/19 04:55 Hgb 10.1 g/dL (12.0-16.0) L 12/27/19 04:55 Hct 29.8 % (36.0-47.0) L 12/27/19 04:55 MCV 90.0 fL (80.0-100.0) 12/27/19 04:55 MCH 30.4 pg (27.0-34.0) 12/27/19 04:55 MCHC 33.8 g/dL (33.0-35.0) 12/27/19 04:55 RDW 15.5 % (11.6-16.5) 12/27/19 04:55 Plt Count 421 X10^3/uL (150.0-450.0) 12/27/19 04:55 Plt Count Comment Adequate (ADEQUATE) 12/24/19 05:03 MPV 7.9 fL (7.4-11.0) 12/27/19 04:55 Neut % (Auto) 63.9 % (42.0-75.0) 12/27/19 04:55 Lymph % (Auto) 27.9 % (21.0-51.0) 12/27/19 04:55 [place] % (Auto) 7.5 % (0.0-13.0) 12/27/19 04:55 Eos % (Auto) 0.4 % (0.9-2.9) L 12/27/19 04:55 Baso % (Auto) 0.3 % (0.2-1.0) 12/27/19 04:55 Neut # (Auto) 5.4 x10^3/uL (2.2-4.8) H 12/27/19 04:55 Lymph # (Auto) 2.4 X10^3/uL (1.3-2.9) 12/27/19 04:55 [place] # (Auto) 0.6 x10^3/uL (0.3-0.8) 12/27/19 04:55 Eos # (Auto) 0.0 x10^3/uL (0.0-0.2) 12/27/19 04:55 Baso # (Auto) 0.0 X10^3/uL (0.0-0.1) 12/27/19 04:55 Absolute Nucleated RBC 0.1 /100WBC 12/27/19 04:55 Total Counted 100 12/24/19 05:03 Neutrophils % (Manual) 79 % (39-76) H 12/24/19 05:03 Band Neutrophils % 2 % (0-10) 12/20/19 05:15 Lymphocytes % (Manual) 17 % (13-43) 12/24/19 05:03 Monocytes % (Manual) 4 % (4-9) 12/24/19 05:03 Eosinophils % (Manual) 2 % (0-6) 12/15/19 05:40 Plt Morphology Comment Normal (NORMAL) 12/24/19 05:03 RBC Morphology Normal (NORMAL) 12/24/19 05:03 ESR 67 MM/HOUR (0-20) H 12/11/19 05:24 PT 29.7 SECONDS (11.8-14.3) 11/29/19 01:41 INR Target Range - 11/29/19 01:41 INR 2.93 (0.8-1.3) H 11/29/19 01:41 APTT 133.2 SECONDS (22.9-36.5) H 12/12/19 09:38 PTT Comment - 12/12/19 09:38 D-Dimer 0.45 ug/ml (0.0-0.57) 11/28/19 17:18 Sample Site Lr 12/27/19 05:10 ABG pH 7.460 (7.35-7.45) H 12/27/19 05:10 ABG pCO2 52.0 mmHg (35.0-45.0) H* 12/27/19 05:10 ABG pO2 64.0 mmHg (80.0-100.0) L 12/27/19 05:10 ABG HCO3 37.0 mmol/L (22-26) H* 12/27/19 05:10 ABG O2 Saturation 93.0 % (90-100) 12/27/19 05:10 ABG Base Excess 11.3 mmol/L (-2.0-2.0) H 12/27/19 05:10 Willy Test Pos 12/27/19 05:10 A-a Gradient 99.0 mmHg 12/27/19 05:10 FiO2 32.0 12/27/19 05:10 Blood Gas Comments Dulce Maria well ae 12/27/19 05:10 Sodium 141 mmol/L (136-145) 12/27/19 04:55 Corrected Sodium TNP 12/27/19 04:55 Potassium 4.0 mmol/L (3.5-5.1) 12/27/19 04:55 Chloride 103 mmol/L (98-107) 12/27/19 04:55 Carbon Dioxide 32.4 mmol/L (21-32) H 12/27/19 04:55 BUN 24 mg/dL (7-18) H 12/27/19 04:55 Creatinine 0.76 mg/dL (0.55-1.02) 12/27/19 04:55 Est GFR (MDRD) Af Amer > 60 (>60) 12/27/19 04:55 Est GFR (MDRD) Non-Af > 60 (>60) 12/27/19 04:55 Glucose 461 mg/dL (65-99) H 12/27/19 17:30 POC Glucose (mg/dL) 448 mg/dL (65-99) H 12/27/19 16:57 Lactic Acid 0.9 mmol/L (0.4-2.0) 11/25/19 08:26 Calcium 9.2 mg/dL (8.5-10.1) 12/27/19 04:55 Corrected Calcium 10.2 mg/dL (8.5-10.1) H 12/27/19 04:55 Magnesium 1.7 mg/dL (1.7-2.9) 12/08/19 04:57 Ferritin 345 ng/mL (8-252) H 11/28/19 04:49 Total Bilirubin 0.20 mg/dL (0.2-1.0) 12/27/19 04:55 AST 12 Units/L (15-37) L 12/27/19 04:55 ALT 43 Units/L (12-78) 12/27/19 04:55 Alkaline Phosphatase 78 Units/L (46-116) 12/27/19 04:55 Creatine Kinase 35 Units/L (26-192) 12/09/19 10:10 CK-MB (CK-2) 1.2 ng/mL (0-4.0) 12/09/19 10:10 CK/CKMB % Calc 3.4 % (<4) 12/09/19 10:10 Troponin I < 0.02 ng/mL (0-1.5) 12/09/19 10:10 C-Reactive Protein 17.70 mg/L (0-3.0) H 12/12/19 03:11 Total Protein 6.8 g/dL (6.4-8.2) 12/27/19 04:55 Albumin 2.8 g/dL (3.4-5.0) L 12/27/19 04:55 Globulin 4.0 g/dL (2.5-4.5) 12/27/19 04:55 Albumin/Globulin Ratio 0.7 Ratio (1.1-2.1) L 12/27/19 04:55 Specimen Type Catherized urine 11/29/19 05:53 Urine Color Yellow (YELLOW) 11/29/19 05:53 Urine Appearance Clear (CLEAR) 11/29/19 05:53 Urine pH 7.0 (5.0 - 8.0) 11/29/19 05:53 Ur Specific [place] 1.005 (1.000-1.030) 11/29/19 05:53 Urine Protein 2+ (NEGATIVE) 11/29/19 05:53 Urine Glucose (UA) 4+ (NEGATIVE) 11/29/19 05:53 Urine Ketones Negative (NEGATIVE) 11/29/19 05:53 Urine Occult Blood Negative (NEGATIVE) 11/29/19 05:53 Urine Nitrite Negative (NEGATIVE) 11/29/19 05:53 Urine Bilirubin Negative (NEGATIVE) 11/29/19 05:53 Urine Acetone Small (NEGATIVE) H 11/26/19 17:50 Urine Urobilinogen Normal (NORMAL) 11/29/19 05:53 Ur Leukocyte Esterase Negative (NEGATIVE) 11/29/19 05:53 Urine RBC None seen /HPF (0-3) 11/29/19 05:53 Urine WBC None seen /HPF (0-5) 11/29/19 05:53 Ur Squamous Epith Cells Negative /HPF (NEGATIVE) 11/29/19 05:53 Amorphous Sediment 1+ /HPF (NEGATIVE) 11/26/19 17:51 Urine Bacteria Negative /HPF (NEGATIVE) 11/29/19 05:53 Ur Culture Indicated? No/not indicated 11/29/19 05:53 Influenza Type A Ag Negative-presumptive (NEGATIVE) 11/24/19 20:30 Influenza Type B Ag Negative-presumptive (NEGATIVE) 11/24/19 20:30 SARS-CoV-2 (PCR) Positive (NEGATIVE) A 11/25/19 00:14 S. pyogenes (TEM-PCR) Not detected (NOT DETECT) 11/24/19 20:30 Miscellaneous Test Covid 19 12/12/19 13:55 Blood Type O POSITIVE 11/25/19 08:42 - Plan (1) Bilateral interstitial pneumonia Status: Acute Plan: DUE TO COVID 19. PT ADMITTED TO ICU ISOLATION. STRICT I&OS, SUPPLEMENTAL O2, CONTINUOUS CARDIAC MONITORING. IV ZITHROMAX AND ZOSYN, HAS HAD IV REMD ESIVIR AND CONVALESCENT PLASMA. BS CONTROL, SSI COVERAGE, AM LABS, BC ON ADMISSION, FEVER CONTRO RESP THERAPY (2) Hypoxia Status: Acute (3) Respiratory distress Status: Acute (4) DVT (deep venous thrombosis) Status: Acute Qualifiers: DVT location: lower extremity Affected thrombotic vein of extremity: unspecified vein of extremity Chronicity: acute Laterality: left Qualified Code(s): I82.402 - Acute embolism and thrombosis of unspecified deep veins of left lower extremity
[2019-12-27] MEDS: COLACE CAP 100 MG PO SCH (21:59)
[2019-12-27] MEDS: MIRALAX POWDER (1 DOSE 17 G) PO SCH (22:00)
[2019-12-27] MEDS: SNACK - Diabetic Appropriate PO SCH (22:02)
[2019-12-28] MEDS: XOPENEX 1.25 MG/3 ML NEBULE NEB SCH ×4 (01:08→17:10)
[2019-12-28 05:10] LABS: BASOPHILS % (AUTO) 0.3 % (0.2-1.0); EOSINOPHILS # (AUTO) 0.1 x10^3/uL (0.0-0.2); EOSINOPHILS % (AUTO) 1.1 % (0.9-2.9); HEMATOCRIT 30.3 % (36.0-47.0); HEMOGLOBIN 10.4 g/dL (12.0-16.0); LYMPHOCYTES # (AUTO) 3.4 X10^3/uL (1.3-2.9); LYMPHOCYTES % (AUTO) 35.8 % (21.0-51.0); MEAN CORPUSCULAR HEMOGLOBIN 31.1 pg (27.0-34.0); MEAN CORPUSCULAR HGB CONC 34.3 g/dL (33.0-35.0); MEAN CORPUSCULAR VOLUME 90.4 fL (80.0-100.0); MEAN PLATELET VOLUME 7.9 fL (7.4-11.0); MONOCYTES # (AUTO) 0.9 x10^3/uL (0.3-0.8); MONOCYTES % (AUTO) 9.9 % (0.0-13.0); NEUTROPHILS % (AUTO) 52.9 % (42.0-75.0); PLATELET COUNT 463 X10^3/uL (150.0-450.0); RED BLOOD COUNT 3.36 X10^6/uL (3.5-5.4); RED CELL DISTRIBUTION WIDTH 15.6 % (11.6-16.5); WHITE BLOOD COUNT 9.5 X10^3/uL (3.6-10.0)
[2019-12-28 05:21] LABS: ALANINE AMINOTRANSFERASE 41 Units/L (12-78); ALBUMIN 2.9 g/dL (3.4-5.0); ALKALINE PHOSPHATASE 77 Units/L (46-116); ASPARTATE AMINO TRANSFERASE 14 Units/L (15-37); BLOOD UREA NITROGEN 20 mg/dL (7-18); CALCIUM 9.3 mg/dL (8.5-10.1); CARBON DIOXIDE 32.8 mmol/L (21-32); CHLORIDE 104 mmol/L (98-107); COR CA(FOR HYPOALB) 10.2 mg/dL (8.5-10.1); CREATININE 0.71 mg/dL (0.55-1.02); SODIUM 143 mmol/L (136-145); TOTAL PROTEIN 6.9 g/dL (6.4-8.2); eGFR NON BLACK RACES > 60 (>60)
[2019-12-28] MEDS: NS 1000 ML 1,000 ML IV SCH ×2 (06:28→23:34)
[2019-12-28] MEDS: MAG-OX TAB PO SCH ×2 (07:00→17:03)
--- NOTE | 2019-12-28 07:01 | RAD ---
HISTORYSOBSTUDYCHEST, 1 [id number] trachea is midline. Heart size remains enlarged. No significant change in diffuse interstitial opacities and peribronchial thickening. No moderate or large effusion. No pneumothorax. No acute osseous abnormality.IMPRESSIONCardiomegaly with no significant change in bilateral interstitial opacities and peribronchial thickening consistent with multifocal pneumonia.Electronically signed by: MIMI OSBORN (Dec 28, 2019 07:00:11)
[2019-12-28] MEDS ORDERED: ZESTRIL TAB 20 MG ONE (08:26)
[2019-12-28] MEDS: FLONASE NASAL SPRAY ENOSTRIL SCH ×2 (09:08→21:32)
[2019-12-28] MEDS: ELIQUIS PO SCH ×2 (09:08→21:32)
[2019-12-28] MEDS: MILK OF MAGNESIA PO SCH ×2 (09:13→23:33)
[2019-12-28] MEDS: VITAMIN D3 125 mcg (5,000 UNITS) PO SCH (09:14)
[2019-12-28] MEDS: VITAMIN C PO SCH ×2 (09:15→21:34)
[2019-12-28] MEDS: TRICOR TAB 160 MG PO SCH (09:16)
[2019-12-28] MEDS: PROTONIX TAB 40 MG PO SCH (09:16)
[2019-12-28] MEDS: ZINC SULFATE PO SCH ×2 (09:16→21:34)
[2019-12-28] MEDS: ZOLOFT PO SCH (09:17)
[2019-12-28] MEDS: PREDNISONE TAB 10 MG PO SCH (09:17)
[2019-12-28] MEDS: ZESTRIL TAB 20 MG PO SCH (09:18)
[2019-12-28] MEDS: VITAMIN A PO SCH (09:19)
[2019-12-28] MEDS: ROBITUSSIN DM PO SCH ×4 (09:19→23:33)
[2019-12-28] MEDS: NORCO 5/325 MG TAB PO PRN ×2 (09:31→21:30)
[2019-12-28] MEDS: LANTUS SC SCH (09:34)
[2019-12-28] MEDS: HumuLIN R SC PRN ×3 (12:00→22:00)
--- NOTE | 2019-12-28 13:17 | PCM.PROG ---
Progress Note - Progress Note for Day of Date of Exam: 12/28/19 - Subjective Subjective: WAS BEING TREATED FOR COVID PNEUMONIA WITH HYPOXIA AND RESPIRATORY FAILURE, AND A LEFT LOWER EXTREMITY DVT. SHE HAS NOW TESTED NEGATIVE FOR COVID-19. SHE IS NOW UTILIZING OXYGEN VIA NASAL CANNULA AT 3 LITERS/MIN. SHE IS AWAITING JAIL PLACEMENT AND IS EXPECTED TO BE ACCEPTED ON SUNDAY. SHE CONTINUES WITH SHORTNESS OF BREAHT AND INTERMITTENT COUGH TODAY. ON EXAMINATION, HEART IS REGULAR IN RATE AND RHYTHM. BILATERAL LUNGS ARE NOTED WITH DIMINISHED LUNG SOUNDS THROUGHOUT. ABDOMEN IS ROUND, SOFT, AND NON-TENDER WITH NORMAL BOWEL SOUNDS NOTED INALL QUDRANTS. TRACE LEFT LOWER EXTREMITY EDEMA NOTED. HER VITALS THIS MORNING ARE: 98.7-95-37-100%-103/52. LABS WERE OBTAINED. ABNORMAL LAB VALUES INCLUDE THE FOLLOWING: RBC 3.36, HGB 10.4, HCT 30.3, PLT COUNT 463, CARBON DIOXIDE 32.8, BUN 20, GLUCOSE 49, AST 14, ALBUMIN 2.9. CHEST XRAY OBTAINED TODAY AND REVEALED: Cardiomegaly with no significant change in bilateral interstitial opacities and peribronchial thickening consistent with multifocal pneumonia. SHE IS CURRENTLY RECEIVING NS AT KVO, PREDNISONE 10MG DAILY, THE POTASSIUM AND MAGNESIUM PROTOCOLS, XOPENEX NEB [place] Q6H, ELIQUIS, HUMULIN R SLIDING SCALE, LANTUS 35 UNITS SC DAILY. STAFF REPORTS THAT PATIENTS BLOOD GLUCOSE LEVELS BOTTOMED AGAIN EARLY THIS MORNING. WE WILL NEED TO MAKE SURE SHE GETS A BEDTIME SNACK. OTHERWISE, WE WILL FOLLOW UP WITH AM LABS AND CONTINUE TO MONITOR. - Past Medical Family Social History Past Med/Fam/Surg Hx: No changes since H&P Allergies: Allergies No Known Drug Allergies Allergy (Verified 03/12/19 17:18) - Review of Systems ROS: No change since H&P - Vital Signs and I&O's Vital Signs: Temperature 98.7 F Pulse Rate [Right Brachial] 99 Pulse Rate [Left Brachial] 98 Pulse Rate 92 Respiratory Rate 34 Blood Pressure [Right Arm] 123/61 Blood Pressure [Left Arm] 104/58 Blood Pressure 141/71 O2 Sat by Pulse Oximetry 94 Intake and Output: Intake & Output 12/26/19 12/27/19 12/28/19 12/29/19 11:59 11:59 11:59 11:59 Intake Total 20580 / 2369 1735 / 1735 Balance 20580 / 2369 1735 / 173 - Physical Exam Oriented: Normal Eyes: Normal Ear: Normal Nose: Normal Throat: Normal Respiratory: Diminished Cardiovascular: Normal : Normal Auscultation: Bowel Sounds: Normal Tenderness: Normal Skin: Normal Musculoskeletal: Back:Lumbar Psychiatric: Normal Mood Description: Calm Affect: Quiet Speech Pattern: Clear, Appropriate - Laboratory and Diagnostics Result Diagrams: 12/28/19 04:40 12/28/19 04:40 Labs: 12/09/19 10:17 Blood Blood Culture - Final 12/09/19 10:10 Blood Blood Culture - Final 11/25/19 04:53 Blood Blood Culture - Final 11/25/19 04:58 Blood Blood Culture - Final 11/25/19 13:50 Urine,Clean Catch Urine Culture - Final Laboratory WBC 9.5 X10^3/uL (3.6-10.0) 12/28/19 04:40 RBC 3.36 X10^6/uL (3.5-5.4) L 12/28/19 04:40 Hgb 10.4 g/dL (12.0-16.0) L 12/28/19 04:40 Hct 30.3 % (36.0-47.0) L 12/28/19 04:40 MCV 90.4 fL (80.0-100.0) 12/28/19 04:40 MCH 31.1 pg (27.0-34.0) 12/28/19 04:40 MCHC 34.3 g/dL (33.0-35.0) 12/28/19 04:40 RDW 15.6 % (11.6-16.5) 12/28/19 04:40 Plt Count 463 X10^3/uL (150.0-450.0) H 12/28/19 04:40 Plt Count Comment Adequate (ADEQUATE) 12/24/19 05:03 MPV 7.9 fL (7.4-11.0) 12/28/19 04:40 Neut % (Auto) 52.9 % (42.0-75.0) 12/28/19 04:40 Lymph % (Auto) 35.8 % (21.0-51.0) 12/28/19 04:40 [place] % (Auto) 9.9 % (0.0-13.0) 12/28/19 04:40 Eos % (Auto) 1.1 % (0.9-2.9) 12/28/19 04:40 Baso % (Auto) 0.3 % (0.2-1.0) 12/28/19 04:40 Neut # (Auto) 5.0 x10^3/uL (2.2-4.8) H 12/28/19 04:40 Lymph # (Auto) 3.4 X10^3/uL (1.3-2.9) H 12/28/19 04:40 [place] # (Auto) 0.9 x10^3/uL (0.3-0.8) H 12/28/19 04:40 Eos # (Auto) 0.1 x10^3/uL (0.0-0.2) 12/28/19 04:40 Baso # (Auto) 0.0 X10^3/uL (0.0-0.1) 12/28/19 04:40 Absolute Nucleated RBC 0.1 /100WBC 12/28/19 04:40 Total Counted 100 12/24/19 05:03 Neutrophils % (Manual) 79 % (39-76) H 12/24/19 05:03 Band Neutrophils % 2 % (0-10) 12/20/19 05:15 Lymphocytes % (Manual) 17 % (13-43) 12/24/19 05:03 Monocytes % (Manual) 4 % (4-9) 12/24/19 05:03 Eosinophils % (Manual) 2 % (0-6) 12/15/19 05:40 Plt Morphology Comment Normal (NORMAL) 12/24/19 05:03 RBC Morphology Normal (NORMAL) 12/24/19 05:03 ESR 67 MM/HOUR (0-20) H 12/11/19 05:24 PT 29.7 SECONDS (11.8-14.3) 11/29/19 01:41 INR Target Range - 11/29/19 01:41 INR 2.93 (0.8-1.3) H 11/29/19 01:41 APTT 133.2 SECONDS (22.9-36.5) H 12/12/19 09:38 PTT Comment - 12/12/19 09:38 D-Dimer 0.45 ug/ml (0.0-0.57) 11/28/19 17:18 Sample Site Lr 12/27/19 05:10 ABG pH 7.460 (7.35-7.45) H 12/27/19 05:10 ABG pCO2 52.0 mmHg (35.0-45.0) H* 12/27/19 05:10 ABG pO2 64.0 mmHg (80.0-100.0) L 12/27/19 05:10 ABG HCO3 37.0 mmol/L (22-26) H* 12/27/19 05:10 ABG O2 Saturation 93.0 % (90-100) 12/27/19 05:10 ABG Base Excess 11.3 mmol/L (-2.0-2.0) H 12/27/19 05:10 Willy Test Pos 12/27/19 05:10 A-a Gradient 99.0 mmHg 12/27/19 05:10 FiO2 32.0 12/27/19 05:10 Blood Gas Comments Dulce Maria well ae 12/27/19 05:10 Sodium 143 mmol/L (136-145) 12/28/19 04:40 Corrected Sodium TNP 12/28/19 04:40 Potassium 3.6 mmol/L (3.5-5.1) 12/28/19 04:40 Chloride 104 mmol/L (98-107) 12/28/19 04:40 Carbon Dioxide 32.8 mmol/L (21-32) H 12/28/19 04:40 BUN 20 mg/dL (7-18) H 12/28/19 04:40 Creatinine 0.71 mg/dL (0.55-1.02) 12/28/19 04:40 Est GFR (MDRD) Af Amer > 60 (>60) 12/28/19 04:40 Est GFR (MDRD) Non-Af > 60 (>60) 12/28/19 04:40 Glucose 49 mg/dL (65-99) L* 12/28/19 04:40 POC Glucose (mg/dL) 236 mg/dL (65-99) H 12/28/19 12:08 Lactic Acid 0.9 mmol/L (0.4-2.0) 11/25/19 08:26 Calcium 9.3 mg/dL (8.5-10.1) 12/28/19 04:40 Corrected Calcium 10.2 mg/dL (8.5-10.1) H 12/28/19 04:40 Magnesium 1.7 mg/dL (1.7-2.9) 12/08/19 04:57 Ferritin 345 ng/mL (8-252) H 11/28/19 04:49 Total Bilirubin 0.30 mg/dL (0.2-1.0) 12/28/19 04:40 AST 14 Units/L (15-37) L 12/28/19 04:40 ALT 41 Units/L (12-78) 12/28/19 04:40 Alkaline Phosphatase 77 Units/L (46-116) 12/28/19 04:40 Creatine Kinase 35 Units/L (26-192) 12/09/19 10:10 CK-MB (CK-2) 1.2 ng/mL (0-4.0) 12/09/19 10:10 CK/CKMB % Calc 3.4 % (<4) 12/09/19 10:10 Troponin I < 0.02 ng/mL (0-1.5) 12/09/19 10:10 C-Reactive Protein 17.70 mg/L (0-3.0) H 12/12/19 03:11 Total Protein 6.9 g/dL (6.4-8.2) 12/28/19 04:40 Albumin 2.9 g/dL (3.4-5.0) L 12/28/19 04:40 Globulin 4.0 g/dL (2.5-4.5) 12/28/19 04:40 Albumin/Globulin Ratio 0.7 Ratio (1.1-2.1) L 12/28/19 04:40 Specimen Type Catherized urine 11/29/19 05:53 Urine Color Yellow (YELLOW) 11/29/19 05:53 Urine Appearance Clear (CLEAR) 11/29/19 05:53 Urine pH 7.0 (5.0 - 8.0) 11/29/19 05:53 Ur Specific [place] 1.005 (1.000-1.030) 11/29/19 05:53 Urine Protein 2+ (NEGATIVE) 11/29/19 05:53 Urine Glucose (UA) 4+ (NEGATIVE) 11/29/19 05:53 Urine Ketones Negative (NEGATIVE) 11/29/19 05:53 Urine Occult Blood Negative (NEGATIVE) 11/29/19 05:53 Urine Nitrite Negative (NEGATIVE) 11/29/19 05:53 Urine Bilirubin Negative (NEGATIVE) 11/29/19 05:53 Urine Acetone Small (NEGATIVE) H 11/26/19 17:50 Urine Urobilinogen Normal (NORMAL) 11/29/19 05:53 Ur Leukocyte Esterase Negative (NEGATIVE) 11/29/19 05:53 Urine RBC None seen /HPF (0-3) 11/29/19 05:53 Urine WBC None seen /HPF (0-5) 11/29/19 05:53 Ur Squamous Epith Cells Negative /HPF (NEGATIVE) 11/29/19 05:53 Amorphous Sediment 1+ /HPF (NEGATIVE) 11/26/19 17:51 Urine Bacteria Negative /HPF (NEGATIVE) 11/29/19 05:53 Ur Culture Indicated? No/not indicated 11/29/19 05:53 Influenza Type A Ag Negative-presumptive (NEGATIVE) 11/24/19 20:30 Influenza Type B Ag Negative-presumptive (NEGATIVE) 11/24/19 20:30 SARS-CoV-2 (PCR) Positive (NEGATIVE) A 11/25/19 00:14 S. pyogenes (TEM-PCR) Not detected (NOT DETECT) 11/24/19 20:30 Miscellaneous Test Covid 19 12/12/19 13:55 Blood Type O POSITIVE 11/25/19 08:42 - Plan (1) Bilateral interstitial pneumonia Status: Acute Plan: DUE TO COVID 19. PT ADMITTED TO ICU ISOLATION. STRICT I&OS, SUPPLEMENTAL O2, CONTINUOUS CARDIAC MONITORING. IV ZITHROMAX AND ZOSYN, HAS HAD IV REMDESIVIR AND CONVALESCENT PLASMA. BS CONTROL, SSI COVERAGE, AM LABS, BC ON ADMISSION, FEVER CONTRO RESP THERAPY (2) Hypoxia Status: Acute (3) Respiratory distress Status: Acute (4) DVT (deep venous thrombosis) Status: Acute Qualifiers: DVT location: lower extremity Affected thrombotic vein of extremity: unspecified vein of extremity Chronicity: acute Laterality: left Qualified Code(s): I82.402 - Acute embolism and thrombosis of unspecified deep veins of left lower extremity
[2019-12-28] MEDS: SNACK - Diabetic Appropriate PO SCH (20:00)
[2019-12-28] MEDS: COLACE CAP 100 MG PO SCH (23:32)
[2019-12-28] MEDS: MIRALAX POWDER (1 DOSE 17 G) PO SCH (23:33)
[2019-12-29] MEDS: XOPENEX 1.25 MG/3 ML NEBULE NEB SCH ×3 (00:55→12:00)
[2019-12-29 05:08] LABS: BASOPHILS # (AUTO) 0.1 X10^3/uL (0.0-0.1); BASOPHILS % (AUTO) 0.9 % (0.2-1.0); EOSINOPHILS # (AUTO) 0.1 x10^3/uL (0.0-0.2); EOSINOPHILS % (AUTO) 1.2 % (0.9-2.9); HEMATOCRIT 28.7 % (36.0-47.0); HEMOGLOBIN 9.7 g/dL (12.0-16.0); LYMPHOCYTES % (AUTO) 31.1 % (21.0-51.0); MEAN CORPUSCULAR HEMOGLOBIN 30.6 pg (27.0-34.0); MEAN CORPUSCULAR HGB CONC 33.8 g/dL (33.0-35.0); MEAN CORPUSCULAR VOLUME 90.6 fL (80.0-100.0); MEAN PLATELET VOLUME 7.7 fL (7.4-11.0); MONOCYTES # (AUTO) 0.6 x10^3/uL (0.3-0.8); MONOCYTES % (AUTO) 8.6 % (0.0-13.0); NEUTROPHILS # (AUTO) 3.8 x10^3/uL (2.2-4.8); NEUTROPHILS % (AUTO) 58.2 % (42.0-75.0); PLATELET COUNT 383 X10^3/uL (150.0-450.0); RED BLOOD COUNT 3.17 X10^6/uL (3.5-5.4); RED CELL DISTRIBUTION WIDTH 15.5 % (11.6-16.5); WHITE BLOOD COUNT 6.5 X10^3/uL (3.6-10.0)
--- NOTE | 2019-12-29 05:21 | RAD ---
HISTORYSOBSTUDYCHEST, 1 [id number] trachea is midline. The cardiac silhouette is unchanged patchy bilateral pulmonary opacities/infiltrates. Stable. Stable elevation of the right hemidiaphragm. No pneumothorax.. The bony thorax is unremarkable.IMPRESSIONNo significant interval change.Electronically signed by: Gypsy Acevedo (Dec 29, 2019 05:19:45)
[2019-12-29 05:22] LABS: ALANINE AMINOTRANSFERASE 38 Units/L (12-78); ALBUMIN 2.7 g/dL (3.4-5.0); ALKALINE PHOSPHATASE 77 Units/L (46-116); ASPARTATE AMINO TRANSFERASE 14 Units/L (15-37); BLOOD UREA NITROGEN 14 mg/dL (7-18); CALCIUM 8.9 mg/dL (8.5-10.1); CARBON DIOXIDE 30.2 mmol/L (21-32); CHLORIDE 105 mmol/L (98-107); COR CA(FOR HYPOALB) 9.9 mg/dL (8.5-10.1); CREATININE 0.65 mg/dL (0.55-1.02); SODIUM 142 mmol/L (136-145); TOTAL PROTEIN 6.6 g/dL (6.4-8.2); eGFR NON BLACK RACES > 60 (>60)
[2019-12-29] MEDS: NS 1000 ML 1,000 ML IV SCH (06:10)
[2019-12-29] MEDS: MAG-OX TAB PO SCH (06:11)
[2019-12-29] MEDS: NORCO 5/325 MG TAB PO PRN (08:13)
[2019-12-29] MEDS: ROBITUSSIN DM PO SCH ×2 (08:14→12:18)
[2019-12-29] MEDS ORDERED: LEVAQUIN TAB 500 MG PO SCH (09:00)
[2019-12-29] MEDS ORDERED: ZESTRIL TAB 20 MG ONE (09:31)
[2019-12-29] MEDS: TRICOR TAB 160 MG PO SCH (09:38)
[2019-12-29] MEDS: ZINC SULFATE PO SCH (09:40)
[2019-12-29] MEDS: VITAMIN D3 125 mcg (5,000 UNITS) PO SCH (09:40)
[2019-12-29] MEDS: ELIQUIS PO SCH (09:40)
[2019-12-29] MEDS: ZOLOFT PO SCH (09:41)
[2019-12-29] MEDS: PROTONIX TAB 40 MG PO SCH (09:41)
[2019-12-29] MEDS: VITAMIN C PO SCH (09:41)
[2019-12-29] MEDS: PREDNISONE TAB 10 MG PO SCH (09:41)
[2019-12-29] MEDS: FLONASE NASAL SPRAY ENOSTRIL SCH (09:42)
[2019-12-29] MEDS: ZESTRIL TAB 20 MG PO SCH (09:42)
[2019-12-29] MEDS: VITAMIN A PO SCH (09:42)
[2019-12-29] MEDS: MILK OF MAGNESIA PO SCH (09:45)
[2019-12-29] MEDS: LANTUS SC SCH (09:49)
[2019-12-29] MEDS: HumuLIN R SC PRN (12:16)
[2019-12-29 13:06] VITALS: BP 115/56
== END 2019-12-29 12:25 | DRG 177 ==
LOC: ER 19:02 → MED/SURG 11-25 03:59 → ICU 11-28 16:28
PROVIDERS: ADMIT Internal Medicine; ATTEND Internal Medicine
DX: I82.402 Acute embolism and thrombosis of unspecified deep veins of left lower extremity; R94.31 Abnormal electrocardiogram [ECG] [EKG]; R00.0 Tachycardia, unspecified; J12.89 Other viral pneumonia; Z79.01 Long term (current) use of anticoagulants; M48.061 Spinal stenosis, lumbar region without neurogenic claudication; K21.9 Gastro-esophageal reflux disease without esophagitis; R79.1 Abnormal coagulation profile; I10 Essential (primary) hypertension; U07.1 COVID-19; R07.89 Other chest pain; J96.01 Acute respiratory failure with hypoxia; E11.65 Type 2 diabetes mellitus with hyperglycemia; Z86.718 Personal history of other venous thrombosis and embolism; R26.89 Other abnormalities of gait and mobility

== ENCOUNTER 2024-10-28 21:27 | Observation (INO) ==
--- NOTE | 2024-10-28 21:39 | DR.DIZZY ---
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 She was feeling weak and dizzy before sitting down; she denies cp, sob, abd pain, n/v/d, palpitations or prior stroke/heart problems. She still has weakness all over and denies rt or lt sided weakness and has no problems with speech or swallowing. Context History of: DM Stroke Symptoms: Dizziness PMH PMH Past Medical History: Arthritis, Diabetes, Dyslipidemia, Hypertension and PUD Past Surgical History: Yes Surgical History: and Cholecystectomy Family History Family Medical History: Diabetes Mellitus, Cancer, [place], Coronary Artery Disease, Heart Failure and Hypertension Social History Do you use any recreational Drugs:: No ROS Review of Systems Constitutional: No Symptoms Reported Eyes: negative Blurred Vision or Diplopia ENTM: No Symptoms Reported Respiratoy: No Symptoms Reported Cardiovascular: No Symptoms Reported Gastrointestinal/Abdominal: No Symptoms Reported Genitourinary: No Symptoms Reported Neurological: See HPI; negative Numbness, Seizure, Tingling, Tremors or Problems Walking Musculoskeletal: See HPI Integumentary: No Symptoms Reported Hematologic/Lymphatic: No Symptoms Reported Endocrine: No Symptoms Reported Psychiatric: No Symptoms Reported PE Vital Signs Vitals: Vital Signs Temperature 98.0 F Pulse Rate 76 Pulse Rate 72 Pulse Rate 74 Pulse Rate 73 Pulse Rate 73 Pulse Rate 73 Pulse Rate 74 Respiratory Rate 22 Respiratory Rate 21 Respiratory Rate 25 Respiratory Rate 23 Respiratory Rate 19 Respiratory Rate 20 Respiratory Rate 16 Blood Pressure 151/72 Blood Pressure 134/66 Blood Pressure 113/58 O2 Sat by Pulse Oximetry 91 O2 Sat by Pulse Oximetry 90 O2 Sat by Pulse Oximetry 91 General Limitations: No Limitations General Appearance: Alert and In No Apparent Distress Head Head Exam: Normal Inspection Eyes Eye exam: Normal Appearance ENT ENT Exam: Normal Exam, Normal Oropharynx and Normal External Ear Exam Neck Neck Exam: Normal Inspection and Full ROM Chest Chest Inspection: Normal Inspection Respiratory Respiratory Exam: Normal Lung Sounds Bilat Cardiovascular Cardiovascular Exam: Regular Rate and Normal Rhythm Abdominal Exam Abdominal Exam: Normal Inspection, Normal Bowel Sounds and Soft Rectal Rectal Exam: Deferred Extremeties Extremities Exam: Normal Inspection and Full ROM Back Back Exam: Normal Inspection and Full ROM Neurologic Neurological Exam: Alert and Oriented X3 Patient Oriented To: Person, Place and Time Speech: Fluid Speech Cerebellar Function: Normal Gait Motor Strength - LUE: 5/5 Motor Strength - RUE: 5/5 Motor Strength - LLE: 5/5 Motor Strength - RLE: 5/5 Psychiatric Psychiatric Exam: Normal Affect and Normal Mood Skin Skin Exam: Warm, Dry, Intact and Normal Color COURSE Reevaluation 1st: Unchanged (still dizzy, needs help walking to br) Consultation Call Returned: 00:45 (Dr Eldridge accepts admission.) ROR Labs Reviewed Laboratory Results Reviewed?: Yes 10/28/24 22:56 10/28/24 22:56 Laboratory: WBC 4.6 X10^3/uL (3.6-10.0) 10/28/24 22:56 RBC 4.45 X10^6/uL (3.5-5.4) 10/28/24 22:56 Hgb 13.1 g/dL (12.0-16.0) 10/28/24 22:56 Hct 38.7 % (36.0-47.0) 10/28/24 22:56 MCV 86.9 fL (80.0-100.0) 10/28/24 22:56 MCH 29.4 pg (27.0-34.0) 10/28/24 22:56 MCHC 33.9 g/dL (33.0-35.0) 10/28/24 22:56 RDW 14.3 % (11.6-16.5) 10/28/24 22:56 Plt Count 217 X10^3/uL (150.0-450.0) 10/28/24 22:56 MPV 9.0 fL (7.4-11.0) 10/28/24 22:56 Neut % (Auto) 60.9 % (42.0-75.0) 10/28/24 22:56 Lymph % (Auto) 27.8 % (21.0-51.0) 10/28/24 22:56 [place] % (Auto) 5.4 % (0.0-13.0) 10/28/24 22:56 Eos % (Auto) 3.9 % (0.9-2.9) H 10/28/24 22:56 Baso % (Auto) 2.0 % (0.2-1.0) H 10/28/24 22:56 Neut # (Auto) 2.8 x10^3/uL (2.2-4.8) 10/28/24 22:56 Lymph # (Auto) 1.3 X10^3/uL (1.3-2.9) 10/28/24 22:56 [place] # (Auto) 0.3 x10^3/uL (0.3-0.8) 10/28/24 22:56 Eos # (Auto) 0.2 x10^3/uL (0.0-0.2) 10/28/24 22:56 Baso # (Auto) 0.1 X10^3/uL (0.0-0.1) 10/28/24 22:56 Absolute Nucleated RBC 0.2 /100WBC 10/28/24 22:56 Sodium 141 mmol/L (136-145) 10/28/24 22:56 Corrected Sodium 145 mmol/L (136-145) 10/28/24 22:56 Potassium 4.2 mmol/L (3.5-5.1) 10/28/24 22:56 Chloride 103 mmol/L (98-107) 10/28/24 22:56 Carbon Dioxide 33.8 mmol/L (21-32) H 10/28/24 22:56 BUN 22 mg/dL (7-18) H 10/28/24 22:56 Creatinine 1.24 mg/dL (0.55-1.02) H 10/28/24 22:56 Est GFR (MDRD) Af Amer 56 (>60) L 10/28/24 22:56 Est GFR (MDRD) Non-Af 46 (>60) L 10/28/24 22:56 Glucose 259 mg/dL (65-99) H 10/28/24 22:56 Calcium 8.9 mg/dL (8.5-10.1) 10/28/24 22:56 Corrected Calcium TNP 10/28/24 22:56 Total Bilirubin 0.30 mg/dL (0.2-1.0) 10/28/24 22:56 AST 16 Units/L (15-37) 10/28/24 22:56 ALT 22 Units/L (12-78) 10/28/24 22:56 Alkaline Phosphatase 82 Units/L (46-116) 10/28/24 22:56 Creatine Kinase 126 Units/L (26-192) 10/28/24 22:56 Troponin I High Sens < 4.0 ng/L (4.0-60.0) L 10/28/24 22:56 Total Protein 7.9 g/dL (6.4-8.2) 10/28/24 22:56 Albumin 4.0 g/dL (3.4-5.0) 10/28/24 22:56 Globulin 3.9 g/dL (2.5-4.5) 10/28/24 22:56 Albumin/Globulin Ratio 1.0 Ratio (1.1-2.1) L 10/28/24 22:56 Lipase 16 Units/L (16-77) 10/28/24 22:56 Specimen Type Clean catch urine 10/28/24 23:59 Urine Color Yellow (YELLOW) 10/28/24 23:59 Urine Appearance Clear (CLEAR) 10/28/24 23:59 Urine pH 7.0 (5.0 - 8.0) 10/28/24 23:59 Ur Specific [place] 1.015 (1.000-1.030) 10/28/24 23:59 Urine Protein 2+ (NEGATIVE) 10/28/24 23:59 Urine Glucose (UA) 2+ (NEGATIVE) 10/28/24 23:59 Urine Ketones Negative (NEGATIVE) 10/28/24 23:59 Urine Blood 1+ (NEGATIVE) 10/28/24 23:59 Urine Nitrite Negative (NEGATIVE) 10/28/24 23:59 Urine Bilirubin Negative (NEGATIVE) 10/28/24 23:59 Urine Urobilinogen Normal (NORMAL) 10/28/24 23:59 Ur Leukocyte Esterase 3+ (NEGATIVE) 10/28/24 23:59 Urine RBC 3-5 /HPF (0-3) A 10/28/24 23:59 Urine WBC 20-30 /HPF (0-5) A 10/28/24 23:59 Ur Squamous Epith Cells Few /HPF (NEGATIVE) 10/28/24 23:59 Urine Bacteria Trace /HPF (NEGATIVE) 10/28/24 23:59 Hyaline Casts Moderate /LPF (NEGATIVE) 10/28/24 23:59 Urine Mucus Few /HPF (NEGATIVE) 10/28/24 23:59 Ur Culture Indicated? Yes/culture set up 10/28/24 23:59 XRAY XRAY Interpreted by: Radiologist X-ray Results: ct abd/pelvis w/o: 1. No acute intra-abdominal abnormality detected. 2. Moderate distention of the stomach with food material. Otherwise, unremarkable appearance of the stomach. ct brain: 1. Chronic microvascular ischemic disease, but no discernible acute infarction seen. Consider followup MRI with diffusion-weighted imaging to rule out occult acute infarction if clinically warranted. 2. Atherosclerosis of the carotid siphons is seen. Consider follow-up MRA as clinically warranted. 3. No skull fracture, intracranial hemorrhage, mass lesion, midline shift, or hydrocephalus seen. Opioid Opioid Risk Tool Age (Jimmy box if 16-45): No History of Preadolescent Sexual Abuse: No Total: 0 Total Score Risk Category: Low Risk Copyright: Glez ALLEN predicting aberrant behaviors Discharge Plan Diagnosis Discharge Problem: Dizziness, Atherosclerosis of both carotid arteries, Cystitis, Subcortical microvascular ischemic occlusive disease Discharge Plan Patient Disposition: 09 ADMITTED INPATIENT Condition: Stable Prescriptions: No Action metoprolol succinate 25 mg tablet extended release 24 hr 25 mg PO BID lisinopril-hydrochlorothiazide 20-12.5 mg tablet 1 tab PO QDAY quetiapine 25 mg tablet 25 mg PO QPM lovastatin 40 mg tablet 40 mg PO QDAY omeprazole 40 mg capsule,delayed release(DR/EC) 40 mg PO BID tramadol 50 mg tablet 50 mg PO TID PRN hydrocortisone acetate 25 mg suppository 25 mg MD BID metoclopramide HCl 5 mg tablet 5 mg PO TID metformin 1,000 mg tablet 1,000 mg PO DAILY warfarin 5 mg tablet 10 mg PO QDAY gabapentin 300 mg capsule 300 mg PO TID PRN metoprolol succinate 25 mg tablet extended release 24 hr 25 mg PO BID albuterol sulfate 90 mcg/actuation HFA aerosol inhaler 2 puff inhalation Q6H PRN Ozempic 1 mg/dose (4 mg/3 mL) pen injector 1 mg SUBCUT WEEKLY Patient Comments: [NO ORIGINAL SIG] Health Concerns: Post Hospitalization: new medications and changes needed to prevent readmission or further decline. Pt educated and given instructions on all concerns. Plan of Treatment: Continue with present treatment and follow up plan. Pt is to keep follow up appointment as instructed and take medications as ordered. Follow ups/Referrals Follow ups/Referrals: BON GARCIA [Primary Care Provider, MEDICAL] - 3 days Instructions Print Language: MONGOLIAN
--- NOTE | 2024-10-28 22:01 | EKG ---
Test Reason : syncope Blood Pressure : */* mmHG Vent. Rate : 73 BPM Atrial Rate : 73 BPM P-R Int : 186 ms QRS Dur : 76 ms QT Int : 382 ms P-R-T Axes : 40 43 40 degrees QTc Int : 420 ms Normal sinus rhythm Normal ECG No previous ECGs available Confirmed by Hood San MD ([id number]) on 10/29/2024 6:39:20 AM Referred By: Confirmed By: Hood San MD
--- NOTE | 2024-10-28 22:12 | CT ---
EXAM: HEAD CT WITHOUT INTRAVENOUS CONTRAST HISTORY: Dizziness. TECHNIQUE: Spiral axial CT images are obtained through the brain without the administration of intravenous contrast. Additional sagittal and coronal reformatted images are reconstructed. COMPARISON: None available. FINDINGS: There are parenchymal lucencies within the white matter tracks of the centrum semiovale, consistent with chronic sequela of atherosclerotic microvascular ischemic disease. There is severe atherosclerosis of the carotid siphons is seen. Consider follow-up MRA as clinically warranted. There is diffuse cerebral cortical atrophy. The centrum semiovale, basal ganglia, cerebellum, and brainstem are otherwise grossly unremarkable for a noncontrast CT scan. There is no acute intracranial hemorrhage, gross acute infarction, mass lesion, midline shift, or hydrocephalus seen. No extra-axial mass or abnormal fluid collection noted. The calvarium is intact. The partially imaged paranasal sinuses, middle ear cavities and mastoid air cells are clear. IMPRESSION: 1. Chronic microvascular ischemic disease, but no discernible acute infarction seen. Consider followup MRI with diffusion-weighted imaging to rule out occult acute infarction if clinically warranted. 2. Atherosclerosis of the carotid siphons is seen. Consider follow-up MRA as clinically warranted. 3. No skull fracture, intracranial hemorrhage, mass lesion, midline shift, or hydrocephalus seen. THIS IS AN ELECTRONICALLY VERIFIED FINAL REPORT 10/28/2024 10:01 PM - Electronically signed by Tony Duncan MD
--- NOTE | 2024-10-28 22:22 | CT ---
EXAM: ABDOMEN/PELVIS W/O CON HISTORY: C/O EPIGASTRIC PAIN INTERMITTEN FOR APPROX 2 WEEK. PATIENT STATES SHE HAS A GASTRIC ULCER THAT HAS BEEN BOTHERING HER. PATIENT STATES SHE IS HAVING BLOODY STOOLS.; COMPARISON: September 24, 2016 TECHNIQUE: Non-contrasted axial CT images of the abdomen and pelvis were obtained and reformatted into coronal and sagittal planes for further evaluation. Radiation dose: 493.82 mGy-cm total DLP FINDINGS: Lung bases are clear. Moderate distention of the stomach with food material. Otherwise, unremarkable appearance of the stomach. Solid visceral organs of the upper abdomen are unremarkable. Status post cholecystectomy. No intra or extrahepatic biliary dilatation. Unremarkable appearance of the kidneys. No hydronephrosis, hydroureter or ureteral calculus. Unremarkable appearance of the urinary bladder. Normal appearance of the small and large bowel. Calcified uterine fibroids. No evidence of acute appendicitis. No pneumoperitoneum. No significant fluid collection. No adenopathy. No acute osseous abnormality. IMPRESSION: 1. No acute intra-abdominal abnormality detected. 2. Moderate distention of the stomach with food material. Otherwise, unremarkable appearance of the stomach. THIS IS AN ELECTRONICALLY VERIFIED FINAL REPORT 10/28/2024 10:19 PM - Electronically signed by Cristian Mason MD
[2024-10-28 23:08] LABS: MEAN PLATELET VOLUME 9.0 fL (7.4-11.0); RED CELL DISTRIBUTION WIDTH 14.3 % (11.6-16.5)
[2024-10-28 23:19] LABS: COR NA(FOR HYPERGLY) 145 mmol/L (136-145); CREATININE 1.24 mg/dL (0.55-1.02); eGFR NON BLACK RACES 46 (>60)
[2024-10-29 00:16] LABS: BLOOD/HEMOGLOBIN,URINE 1+ (NEGATIVE); LEUKOCYTE ESTERASE ,URINE 3+ (NEGATIVE); NITRITES,URINE NEGATIVE (NEGATIVE)
[2024-10-29 00:29] LABS: APPEARANCE,URINE CLEAR (CLEAR); HYALINE CASTS, URINE MODERATE /LPF (NEGATIVE); SQUAMOUS EPITHELIAL CELL,UR FEW /HPF (NEGATIVE)
[2024-10-29] MEDS ORDERED: ZOFRAN INJ 4 MG VIAL IVP PRN (00:42)
[2024-10-29] MEDS ORDERED: TYLENOL 325 MG TAB PO PRN (00:42)
[2024-10-29] MEDS ORDERED: CONSULT PHARMACY - POTASSIUM & MAGNESIUM XX SCH (01:00)
[2024-10-29] MEDS: NS 1,000 ML IV 1,000 ML IV SCH (01:19)
[2024-10-29] MEDS: ROCEPHIN VIAL 1 GRAM 1 G in NS 100 ML IV 100 ML IV SCH (01:19)
[2024-10-29] MEDS ORDERED: PROVENTIL NEB TX 0.083% 2.5MG/ 3ML NEB PRN ×2 (05:00→06:00)
[2024-10-29 05:50] LABS: MEAN PLATELET VOLUME 9.5 fL (7.4-11.0); RED CELL DISTRIBUTION WIDTH 14.5 % (11.6-16.5)
[2024-10-29] MEDS: NovoLIN R (or HumuLIN R) SUBCUT PRN (05:53)
[2024-10-29 06:14] LABS: PLATELET MORPHOLOGY COMMENT NORMAL (NORMAL)
[2024-10-29 06:51] LABS: COR NA(FOR HYPERGLY) 145 mmol/L (136-145); CREATININE 1.09 mg/dL (0.55-1.02); eGFR NON BLACK RACES 54 (>60)
[2024-10-29 08:54] LABS: INR 1.41 (0.8-1.3)
[2024-10-29] MEDS ORDERED: ZESTORETIC 10/ 12.5MG PO SCH (09:00)
[2024-10-29] MEDS ORDERED: GLUCOPHAGE ONE (09:12)
[2024-10-29] MEDS ORDERED: ZESTRIL TAB 20 MG ONE (09:12)
[2024-10-29] MEDS: JANUVIA PO SCH (09:24)
[2024-10-29] MEDS: TOPROL XL PO SCH (09:25)
[2024-10-29] MEDS: REGLAN TAB 5 MG PO SCH (09:25)
[2024-10-29] MEDS: ZESTRIL TAB 20 MG PO SCH (09:25)
[2024-10-29] MEDS: HYDROCHLOROTHIAZIDE 12.5 MG CAP PO SCH (09:26)
[2024-10-29] MEDS: GLUCOPHAGE PO SCH (09:26)
[2024-10-29] MEDS: COUMADIN TAB 5 MG (JANTOVEN) PO SCH (09:31)
[2024-10-29] MEDS: NS 1,000 ML IV 1,000 ML ONE (10:14)
[2024-10-29] MEDS: BETAPACE AF PO ONE (10:15)
[2024-10-29] MEDS ORDERED: PHARMACY CONSULT XX SCH (16:00)
[2024-10-29] MEDS: ULTRAM PO PRN (16:29)
[2024-10-29] MEDS: GLUCOPHAGE ONE (16:40)
--- NOTE | 2024-10-29 16:56 | RAD ---
EXAM: CHEST, PA/LAT ADULT HISTORY: sob; COMPARISON: No relevant prior studies were available for comparison at the time of interpretation. TECHNIQUE: CHEST, PA/LAT ADULT FINDINGS: Chest: Lines and tubes: None Mediastinum: Borderline cardiomegaly. Pulmonary vessels: Pulmonary vasculature is prominent. Lung cohen: No suspicious airspace opacity. Pleura: No effusion. No pneumothorax. Bones and soft tissues: No acute osseous or soft tissue abnormality. IMPRESSION: 1. No acute cardiopulmonary abnormality THIS IS AN ELECTRONICALLY VERIFIED FINAL REPORT 10/29/2024 4:53 PM - Electronically signed by Saul Carroll MD
--- NOTE | 2024-10-29 17:20 | DR.H&P ---
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 She was feeling weak and dizzy before sitting down; she denies cp, sob, palpitations or prior stroke/heart problems. Pt has been co epigastric pain and related to "ulcer" which she was taking protonix twice a day. She states still having weakness all over and denies rt or lt sided weakness and has no problems with speech or swallowing. Past Medical History Past Medical History: Arthritis, Diabetes, Dyslipidemia, Hypertension and PUD Additional Medical History: DVT Past Surgical History Surgical History: Cholecystectomy and Hysterectomy Family History Family Medical History: Diabetes Mellitus, Cancer, Coronary Artery Disease and Hypertension Social History Does patient currently use any type of tobacco product: No Type of Tobacco Use: None Does any household member use tobacco: No Alcohol Use: None Drug Use: None Medications Home Medications: Home Medications Medication Instructions Recorded Confirmed Type lisinopril 20 1 tab PO QDAY 01/29/2310/29 History mg-hydrochlorothiazide 12.5 mg tablet metoprolol succinate 25 mg 25 mg PO DAILY 01/29/23 History tablet,extended release 24 hr albuterol sulfate 90 mcg/actuation 2 puff inhalation Q 6H PRN 10/29/24 10/29/24 History aerosol inhaler gabapentin 300 mg capsule 300 mg PO BID 10/29/2410/29 History hydrocortisone acetate 25 mg 25 mg AL BID 10/29/24 History rectal suppository insulin human U-100 NPH-regulr 25 unit subcut ACHS PRN 10/29/24 10/29/24 History 70-30 mix 100 unit/mL subcutaneous susp (Humulin 70/30 U-100 Insulin) lovastatin 40 mg tablet 40 mg PO QDAY 10/29/2410/29 History metformin 1,000 mg tablet 1,000 mg PO BID 10/29/24 History metoclopramide HCl 5 mg tablet 5 mg PO BID 10/29/24 History omeprazole 40 mg capsule,delayed 40 mg PO BID 10/29/24 10/29/24 History release quetiapine 25 mg tablet 25 mg PO QPM 10/29/24 History semaglutide 1 mg/dose (4 mg/3 mL) 1 mg subcut WEEKLY 0 10/29/24 10/29/24 History subcutaneous pen injector (Ozempic) sitagliptin phosphate 100 mg 100 mg PO QAM 10/29/24 History tablet (Januvia) tramadol 50 mg tablet 50 mg PO TID PRN 10/29/24 History warfarin 5 mg tablet 5 mg PO QDAY 10/29/24 History Allergies Allergies Allergy/AdvReac Type Severity Reaction Status Date / Time No Known Drug Allergies Allergy Verified 01/29/23 15:52 Labs 10/29/24 05:23 10/29/24 06:25 Labs: Laboratory WBC 5.2 X10^3/uL (3.6-10.0) 10/29/24 05:23 RBC 4.21 X10^6/uL (3.5-5.4) 10/29/24 05:23 Hgb 12.4 g/dL (12.0-16.0) 10/29/24 05:23 Hct 36.7 % (36.0-47.0) 10/29/24 05:23 MCV 87.1 fL (80.0-100.0) 10/29/24 05:23 MCH 29.4 pg (27.0-34.0) 10/29/24 05:23 MCHC 33.8 g/dL (33.0-35.0) 10/29/24 05:23 RDW 14.5 % (11.6-16.5) 10/29/24 05:23 Plt Count 188 X10^3/uL (150.0-450.0) 10/29/24 05:23 Plt Count Comment Adequate (ADEQUATE) 10/29/24 05:23 MPV 9.5 fL (7.4-11.0) 10/29/24 05:23 Neut % (Auto) 48.1 % (42.0-75.0) 10/29/24 05:23 Lymph % (Auto) 42.1 % (21.0-51.0) 10/29/24 05:23 Cooke % (Auto) 5.1 % (0.0-13.0) 10/29/24 05:23 Eos % (Auto) 3.4 % (0.9-2.9) H 10/29/24 05:23 Baso % (Auto) 1.3 % (0.2-1.0) H 10/29/24 05:23 Neut # (Auto) 2.5 x10^3/uL (2.2-4.8) 10/29/24 05:23 Lymph # (Auto) 2.2 X10^3/uL (1.3-2.9) 10/29/24 05:23 Cooke # (Auto) 0.3 x10^3/uL (0.3-0.8) 10/29/24 05:23 Eos # (Auto) 0.2 x10^3/uL (0.0-0.2) 10/29/24 05:23 Baso # (Auto) 0.1 X10^3/uL (0.0-0.1) 10/29/24 05:23 Absolute Nucleated RBC 0.9 /100WBC 10/29/24 05:23 Plt Morphology Comment Normal (NORMAL) 10/29/24 05:23 RBC Morphology Normal (NORMAL) 10/29/24 05:23 PT 17.4 SECONDS (11.8-14.3) 10/29/24 08:30 INR Target Range - 10/29/24 08:30 INR 1.41 (0.8-1.3) H 10/29/24 08:30 D-Dimer < 0.27 ug/ml (0.0-0.57) 10/29/24 08:30 Sodium 141 mmol/L (136-145) 10/29/24 06:25 Corrected Sodium 145 mmol/L (136-145) 10/29/24 06:25 Potassium 3.7 mmol/L (3.5-5.1) 10/29/24 06:25 Chloride 102 mmol/L (98-107) 10/29/24 06:25 Carbon Dioxide 30.5 mmol/L (21-32) 10/29/24 06:25 BUN 20 mg/dL (7-18) H 10/29/24 06:25 Creatinine 1.09 mg/dL (0.55-1.02) H 10/29/24 06:25 Est GFR (MDRD) Af Amer > 60 (>60) 10/29/24 06:25 Est GFR (MDRD) Non-Af 54 (>60) L 10/29/24 06:25 Glucose 272 mg/dL (65-99) H 10/29/24 06:25 POC Glucose (mg/dL) 125 mg/dL (65-99) H 10/29/24 16:24 Calcium 8.9 mg/dL (8.5-10.1) 10/29/24 06:25 Corrected Calcium TNP 10/29/24 06:25 Total Bilirubin 0.20 mg/dL (0.2-1.0) 10/29/24 06:25 AST 16 Units/L (15-37) 10/29/24 06:25 ALT 21 Units/L (12-78) 10/29/24 06:25 Alkaline Phosphatase 94 Units/L (46-116) 10/29/24 06:25 Creatine Kinase 126 Units/L (26-192) 10/28/24 22:56 Troponin I High Sens < 4.0 ng/L (4.0-60.0) L 10/28/24 22:56 Total Protein 8.0 g/dL (6.4-8.2) 10/29/24 06:25 Albumin 4.0 g/dL (3.4-5.0) 10/29/24 06:25 Globulin 4.0 g/dL (2.5-4.5) 10/29/24 06:25 Albumin/Globulin Ratio 1.0 Ratio (1.1-2.1) L 10/29/24 06:25 Lipase 16 Units/L (16-77) 10/28/24 22:56 Specimen Type Clean catch urine 10/28/24 23:59 Urine Color Yellow (YELLOW) 10/28/24 23:59 Urine Appearance Clear (CLEAR) 10/28/24 23:59 Urine pH 7.0 (5.0 - 8.0) 10/28/24 23:59 Ur Specific Rector 1.015 (1.000-1.030) 10/28/24 23:59 Urine Protein 2+ (NEGATIVE) 10/28/24 23:59 Urine Glucose (UA) 2+ (NEGATIVE) 10/28/24 23:59 Urine Ketones Negative (NEGATIVE) 10/28/24 23:59 Urine Blood 1+ (NEGATIVE) 10/28/24 23:59 Urine Nitrite Negative (NEGATIVE) 10/28/24 23:59 Urine Bilirubin Negative (NEGATIVE) 10/28/24 23:59 Urine Urobilinogen Normal (NORMAL) 10/28/24 23:59 Ur Leukocyte Esterase 3+ (NEGATIVE) 10/28/24 23:59 Urine RBC 3-5 /HPF (0-3) A 10/28/24 23:59 Urine WBC 20-30 /HPF (0-5) A 10/28/24 23:59 Ur Squamous Epith Cells Few /HPF (NEGATIVE) 10/28/24 23:59 Urine Bacteria Trace /HPF (NEGATIVE) 10/28/24 23:59 Hyaline Casts Moderate /LPF (NEGATIVE) 10/28/24 23:59 Urine Mucus Few /HPF (NEGATIVE) 10/28/24 23:59 Ur Culture Indicated? 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) Physical Exam Vital Signs: Vital Signs Temperature 98.2 F Temperature 97.7 F Pulse Rate [Apical] 81 Pulse Rate [Apical] 77 Respiratory Rate 20 Respiratory Rate 16 Respiratory Rate 15 Blood Pressure [Left Arm] 139/64 Blood Pressure [Left Arm] 130/60 O2 Sat by Pulse Oximetry 100 O2 Sat by Pulse Oximetry 100 Oriented: Person Eyes: Normal Nose: Normal Throat: Dry Respiratory: RLL Diminished and LLL Diminished Cardiovascular: Normal Auscultation: Bowel Sounds: Normal Palpation: negative Liver Enlarged Tenderness: Epigastric and Mild Skin: Decreased Turgur Musculoskeletal: Back:Lumbar Psychiatric: Anxiety Mood Description: Anxious Affect: Anxious Speech Pattern: Clear and Appropriate Assessment/Plan (1) Syncope and collapse: Status: Acute Plan: ADMIT, ICU IV HYDRATION, BP CONTROL AND CARDIAC MONITORING BS CONTROL, CT HEAD ON ADMISSION DDIMER, CXR AND CE RESUME COUMADIN AFTER PT/INR MRI/MRA HEAD AND NECK (2) Atherosclerosis of both carotid arteries: Status: Acute (3) UTI (urinary tract infection): Status: Acute (4) Diabetes mellitus: Status: Acute (5) Epigastric abdominal tenderness: Status: Resolved
--- NOTE | 2024-10-29 17:21 | MRI ---
EXAM: MRA HEAD W/O CON HISTORY: carotid stenosis; COMPARISON: CT head without contrast from October 28, 2024 TECHNIQUE: MRA head images were obtained without the administration of intravenous contrast utilizing a routine [id number] protocol. 3D reconstructed images were created for further characterization by the technologist. FINDINGS: Anterior Circulation: Right internal carotid artery: Unremarkable. Intracranial segment is patent with no significant stenosis. No aneurysm. Right middle cerebral artery: No occlusion or significant stenosis. No aneurysm. Right anterior cerebral artery: Unremarkable. No occlusion or significant stenosis. No aneurysm. Left internal carotid artery: Unremarkable. Intracranial segment is patent with no significant stenosis. No aneurysm. Left middle cerebral artery: Unremarkable. No occlusion or significant stenosis. No aneurysm. Left anterior cerebral artery: Unremarkable. No occlusion or significant stenosis. No aneurysm. Posterior Circulation: Right vertebral artery: Unremarkable. No occlusion or significant stenosis. No aneurysm. Left vertebral artery: Unremarkable. No occlusion or significant stenosis. No aneurysm. Basilar artery: Unremarkable. No occlusion or significant stenosis. No aneurysm. Right posterior cerebral artery: Unremarkable. No occlusion or significant stenosis. No aneurysm. Left posterior cerebral artery: Unremarkable. No occlusion or significant stenosis. No aneurysm. IMPRESSION: No clinically significant stenosis, occlusion or aneurysm identified involving the intracranial arterial structures. THIS IS AN ELECTRONICALLY VERIFIED FINAL REPORT 10/29/2024 5:09 PM - Electronically signed by Cristian Mason MD
--- NOTE | 2024-10-29 17:21 | MRI ---
EXAM: MRA NECK W/O CON HISTORY: CAROTID STENOSIS; COMPARISON: None. TECHNIQUE: MRA neck images were obtained without the administration of intravenous contrast utilizing a routine [id number] protocol. 3D reconstructed images were created for further characterization by the technologist. FINDINGS: Right common carotid artery: No clinically significant stenosis, occlusion or dissection. Right internal carotid artery: No clinically significant stenosis of the extracranial segment. No dissection or occlusion. Right external carotid artery: No occlusion or clinically significant stenosis of the origin. Right vertebral artery: No clinically significant stenosis, occlusion or dissection. Left common carotid artery: No clinically significant stenosis, occlusion or dissection.. Left internal carotid artery: No clinically significant stenosis of the extracranial segment. No dissection or occlusion. Left external carotid artery: No occlusion or clinically significant stenosis of the origin. Left vertebral artery: No clinically significant stenosis. No dissection or occlusion. IMPRESSION: No clinically significant stenosis, occlusion or dissection identified involving the arterial structures of the neck. THIS IS AN ELECTRONICALLY VERIFIED FINAL REPORT 10/29/2024 5:07 PM - Electronically signed by Cristian Mason MD
[2024-10-29] MEDS: ZOCOR TAB 20 MG PO SCH (21:20)
[2024-10-29] MEDS: SNACK - Diabetic Appropriate PO SCH ×2 (21:20)
[2024-10-30 05:12] LABS: MEAN PLATELET VOLUME 9.4 fL (7.4-11.0); RED CELL DISTRIBUTION WIDTH 14.0 % (11.6-16.5)
[2024-10-30 05:30] LABS: COR NA(FOR HYPERGLY) 143 mmol/L (136-145); CREATININE 0.76 mg/dL (0.55-1.02); eGFR NON BLACK RACES > 60 (>60)
[2024-10-30] MEDS ORDERED: GLUCOPHAGE ONE (05:35)
[2024-10-30] MEDS ORDERED: CONSULT PHARMACY - POTASSIUM & MAGNESIUM XX SCH (06:00)
[2024-10-30] MEDS: MILK OF MAGNESIA PO PRN (08:30)
[2024-10-30] MEDS: MAG-OX TAB PO SCH (08:32)
[2024-10-30] MEDS: K-DUR TAB 20 MEQ PO SCH (08:32)
[2024-10-30] MEDS: ZESTRIL TAB 20 MG ONE (08:33)
[2024-10-30] MEDS: COUMADIN TAB 7.5 MG (JANTOVEN) PO SCH (08:45)
[2024-10-30] MEDS: GLUCOPHAGE ONE (17:32)
[2024-10-30] MEDS: COLACE CAP 100 MG PO SCH (21:45)
[2024-10-30] MEDS: RESTORIL CAP 15 MG PO PRN (21:45)
[2024-10-31 05:39] LABS: CREATININE 0.85 mg/dL (0.55-1.02); eGFR NON BLACK RACES > 60 (>60)
[2024-10-31] MEDS ORDERED: GLUCOPHAGE ONE ×2 (05:43→16:13)
[2024-10-31 06:56] LABS: MEAN PLATELET VOLUME 8.6 fL (7.4-11.0); RED CELL DISTRIBUTION WIDTH 14.2 % (11.6-16.5)
[2024-10-31 07:00] LABS: INR 1.13 (0.8-1.3)
[2024-10-31] MEDS: CONSULT PHARMACY - POTASSIUM & MAGNESIUM XX SCH (08:00)
[2024-10-31] MEDS: K-DUR TAB 20 MEQ PO SCH (08:35)
[2024-10-31] MEDS: MAG-OX TAB PO SCH (08:35)
[2024-10-31] MEDS: ZESTRIL TAB 20 MG ONE (08:40)
[2024-10-31] MEDS: CIPRO TAB 500 MG PO SCH (09:02)
[2024-10-31] MEDS: CARAFATE ORAL SUSP PO SCH (11:03)
[2024-10-31 11:39] VITALS: BMI 33.2
--- NOTE | 2024-10-31 14:24 | RAD ---
EXAMINATION: CHEST, 1 VIEW HISTORY: SOB, COUGH; . COMPARISON STUDY: Chest x-ray 10/29/2024 TECHNIQUE: Single frontal view of the chest FINDINGS: Lungs are expanded. Mild cardiac silhouette enlargement. Normal pulmonary vascular pattern. Bones are intact IMPRESSION: Mild cardiac silhouette enlargement. THIS IS AN ELECTRONICALLY VERIFIED FINAL REPORT 10/31/2024 2:21 PM - Electronically signed by Marva Anthony MD
--- NOTE | 2024-10-31 14:25 | RAD ---
EXAMINATION: KUB HISTORY: ABD PAIN ; . COMPARISON STUDY: None. TECHNIQUE: 2 supine AP views of the abdomen and pelvis FINDINGS: Mild amount of bowel-gas and feces. Nonspecific minimal to mild gaseous distention of small bowel. Visualized soft tissue outlines and osseous structures appear intact. The superior aspect of the abdomen was not fully imaged. There are surgical clips right upper abdomen. Nonspecific calcifications in the pelvis probable vascular. IMPRESSION: Mild amount of bowel-gas and feces. THIS IS AN ELECTRONICALLY VERIFIED FINAL REPORT 10/31/2024 2:22 PM - Electronically signed by Marva Anthony MD
[2024-11-01] MEDS: GLUCOPHAGE ONE (06:03)
[2024-11-01 07:33] LABS: INR 1.12 (0.8-1.3); MEAN PLATELET VOLUME 8.7 fL (7.4-11.0); RED CELL DISTRIBUTION WIDTH 13.8 % (11.6-16.5)
[2024-11-01 07:42] LABS: COR CA(FOR HYPOALB) 9.1 mg/dL (8.5-10.1); COR NA(FOR HYPERGLY) 142 mmol/L (136-145); CREATININE 0.66 mg/dL (0.55-1.02); eGFR NON BLACK RACES > 60 (>60)
[2024-11-01 09:05] VITALS: RESP 20
[2024-11-01] MEDS ORDERED: ZESTRIL TAB 20 MG ONE (10:23)
[2024-11-01] MEDS ORDERED: CONSULT PHARMACY - POTASSIUM & MAGNESIUM XX SCH (11:00)
[2024-11-01] MEDS: MAG-OX TAB PO SCH (11:20)
[2024-11-01 12:21] VITALS: BP 138/63; PULSE 86; TEMP 98.1; O2SAT 97
== END 2024-11-01 14:00 | disposition home or self-care (01) ==
LOC: ICU 21:27 → ER 21:27 → ICU 10-29 01:44 → MED/SURG 10-31 18:02
PROVIDERS: ADMIT Family Medicine; ATTEND Internal Medicine
DX: M51.360 Other intervertebral disc degeneration, lumbar region with discogenic back pain only; R53.1 Weakness; K64.4 Residual hemorrhoidal skin tags; R26.89 Other abnormalities of gait and mobility; I65.23 Occlusion and stenosis of bilateral carotid arteries; E78.5 Hyperlipidemia, unspecified; Z16.11 Resistance to penicillins; I10 Essential (primary) hypertension; Z86.718 Personal history of other venous thrombosis and embolism; R79.1 Abnormal coagulation profile; Z16.12 Extended spectrum beta lactamase (ESBL) resistance; B96.89 Other specified bacterial agents as the cause of diseases classified elsewhere; Z79.01 Long term (current) use of anticoagulants; E83.42 Hypomagnesemia; N30.01 Acute cystitis with hematuria; K31.84 Gastroparesis; K52.89 Other specified noninfective gastroenteritis and colitis; K92.1 Melena; R55 Syncope and collapse; K29.00 Acute gastritis without bleeding; R94.4 Abnormal results of kidney function studies; R10.84 Generalized abdominal pain; R42 Dizziness and giddiness; Z16.19 Resistance to other specified beta lactam antibiotics; R06.02 Shortness of breath; Z79.4 Long term (current) use of insulin; R10.816 Epigastric abdominal tenderness